=== PATIENT | female | born 1940 | race Caucasian/White ===

== ENCOUNTER → 2017-01-01 | Outpatient (CLI) | payer OTHER ==
[~2017-01-01] MED LIST: ALBU1AER9 INH; ALPR-385 PO; ATEN50TA8 PO; CALC-20 PO; CHOL4POW6 PO; DENO60SO; DIPH-416 PO; MULTTAB5 PO; POTA20TA13 PO; SERT-234 PO; SIMV20TA2 PO; levothyroxine PO
--- NOTE | 2017-01-01 16:59 | DIAGNOSTIC IMAGING REPORT ---
Venous Doppler left leg LEFT VENOUS DOPP LOWER EXT UNILAT CLINICAL HISTORY: Pain edema TECHNIQUE: Doppler ultrasound COMPARISON STUDY: Negative study FINDINGS: Negative study IMPRESSION: Negative study Electronically signed by: Lincoln Saba M.D. 01/01/2017 4:57 PM Dictated Date/Time: 01/01/2017 4:57 PM
== END | disposition home or self-care (01) ==
LOC: C.ULTR 16:20
PROVIDERS: ATTEND Family Medicine
DX: R60.0 Localized edema (principal)

== ENCOUNTER → 2017-01-02 | Outpatient (CLI) | payer OTHER ==
--- NOTE | 2017-01-02 08:56 | DIAGNOSTIC IMAGING REPORT ---
RIGHT TOE(S) MIN 2 VIEWS CLINICAL HISTORY: CONTUSION OF TOE Right trauma COMPARISON: None. DISCUSSION: Fracture distal aspect proximal phalanx fifth toe. Moderate soft tissue edema. No evidence dislocation. IMPRESSION: Fracture distal aspect proximal phalanx fifth toe Electronically signed by: Lincoln Saba M.D. 01/02/2017 8:55 AM Dictated Date/Time: 01/02/2017 8:54 AM
[2017-01-02 13:08] LABS: BLOOD UREA NITROGEN 9 mg/dl (7-18); BUN/CREATININE RATIO 13.8 (10-20); CALCIUM 9.1 mg/dl (8.5-10.1); CARBON DIOXIDE 22 mmol/L (21-32); CHLORIDE 94 mmol/L (98-107); CREATININE 0.68 mg/dl (0.60-1.20); GLUCOSE 91 mg/dl (70-99); POTASSIUM 4.2 mmol/L (3.5-5.1); SODIUM 126 mmol/L (136-145)
== END | disposition home or self-care (01) ==
LOC: C.LABPVFM 08:25
PROVIDERS: ATTEND Family Medicine
DX: S90.121A Contusion of right lesser toe(s) without damage to nail, initial encounter (principal); X58.XXXA Exposure to other specified factors, initial encounter; S92.514A Nondisplaced fracture of proximal phalanx of right lesser toe(s), initial encounter for closed fracture; E03.9 Hypothyroidism, unspecified; E87.1 Hypo-osmolality and hyponatremia

== ENCOUNTER → 2017-05-09 | Outpatient (CLI) | payer OTHER ==
[2017-05-09 13:10] LABS: ALT/SGPT 33 U/L (12-78); BLOOD UREA NITROGEN 10 mg/dl (7-18); BUN/CREATININE RATIO 15.1 (10-20); CALCIUM 8.8 mg/dl (8.5-10.1); CARBON DIOXIDE 23 mmol/L (21-32); CHLORIDE 96 mmol/L (98-107); CHOLESTEROL 164 mg/dl (0-200); CREATININE 0.67 mg/dl (0.60-1.20); GLUCOSE 76 mg/dl (70-99); POTASSIUM 4.2 mmol/L (3.5-5.1); SODIUM 126 mmol/L (136-145)
[2017-05-09 13:21] LABS: ALB/GLOB RATIO 0.9 (0.9-2); ALKALINE PHOSPHATASE 43 U/L (45-117); AST/SGOT 21 U/L (15-37); CHOLESTEROL/HDL RATIO 2.7; HDL CHOLESTEROL 61 mg/dl; LDL CHOLESTEROL CALCULATED 77 mg/dl; TRIGLYCERIDES 128 mg/dl (0-150); VERY LOW DENSITY LIPOPROT CALC 26 mg/dl
== END | disposition home or self-care (01) ==
LOC: C.LABPVFM 08:30
PROVIDERS: ATTEND Family Medicine
DX: J44.0 Chronic obstructive pulmonary disease with (acute) lower respiratory infection (principal); F32.9 Major depressive disorder, single episode, unspecified; E78.5 Hyperlipidemia, unspecified; I10 Essential (primary) hypertension; S92.919A Unspecified fracture of unspecified toe(s), initial encounter for closed fracture; X58.XXXA Exposure to other specified factors, initial encounter

== ENCOUNTER → 2017-06-19 | Outpatient (CLI) | payer OTHER ==
[2017-06-19 13:12] LABS: BLOOD UREA NITROGEN 10 mg/dl (7-18); BUN/CREATININE RATIO 17.1 (10-20); CALCIUM 9.1 mg/dl (8.5-10.1); CARBON DIOXIDE 25 mmol/L (21-32); CHLORIDE 100 mmol/L (98-107); CREATININE 0.58 mg/dl (0.60-1.20); GLUCOSE 68 mg/dl (70-99); POTASSIUM 4.2 mmol/L (3.5-5.1); SODIUM 131 mmol/L (136-145)
== END | disposition home or self-care (01) ==
LOC: C.LABPVFM 10:14
PROVIDERS: ATTEND Family Medicine
DX: E87.1 Hypo-osmolality and hyponatremia (principal)

== ENCOUNTER → 2017-07-21 | Outpatient (CLI) | payer OTHER | END | disposition home or self-care (01) | LOC: C.PAPS 14:58 | PROVIDERS: ATTEND Obstetrics & Gynecology | DX: Z01.419 Encounter for gynecological examination (general) (routine) without abnormal findings (principal) ==

== ENCOUNTER → 2017-10-18 | Outpatient (CLI) | payer OTHER | END | disposition home or self-care (01) | LOC: C.LABPVFM 10:26 | PROVIDERS: ATTEND Family Medicine | DX: R39.9 Unspecified symptoms and signs involving the genitourinary system (principal) ==

== ENCOUNTER → 2017-11-01 | Outpatient (CLI) | payer OTHER ==
[2017-11-01 13:19] LABS: ALT/SGPT 29 U/L (12-78); BLOOD UREA NITROGEN 16 mg/dl (7-18); BUN/CREATININE RATIO 20.6 (10-20); CALCIUM 8.7 mg/dl (8.5-10.1); CARBON DIOXIDE 25 mmol/L (21-32); CHLORIDE 99 mmol/L (98-107); CHOLESTEROL 157 mg/dl (0-200); CREATININE 0.75 mg/dl (0.60-1.20); GLUCOSE 83 mg/dl (70-99); POTASSIUM 4.1 mmol/L (3.5-5.1); SODIUM 132 mmol/L (136-145); TRIGLYCERIDES 117 mg/dl (0-150); VERY LOW DENSITY LIPOPROT CALC 23 mg/dl
[2017-11-01 13:29] LABS: ALB/GLOB RATIO 0.9 (0.9-2); ALKALINE PHOSPHATASE 55 U/L (45-117); AST/SGOT 22 U/L (15-37); CHOLESTEROL/HDL RATIO 2.8; HDL CHOLESTEROL 57 mg/dl; LDL CHOLESTEROL CALCULATED 77 mg/dl
== END | disposition home or self-care (01) ==
LOC: C.LABPVFM 08:02
PROVIDERS: ATTEND Family Medicine
DX: F41.9 Anxiety disorder, unspecified (principal); F32.9 Major depressive disorder, single episode, unspecified; E87.1 Hypo-osmolality and hyponatremia; E03.9 Hypothyroidism, unspecified; J44.9 Chronic obstructive pulmonary disease, unspecified; I10 Essential (primary) hypertension

== ENCOUNTER → 2017-11-11 | Outpatient (CLI) | payer OTHER ==
[~2017-11-11] MED LIST changes: +ACET-1256 PO; +ALBU18002 INH; +ASPI81TA28 PO; +CALC-393 PO; +CALC-51 PO; +CHOL4POW12 PO; +CIPR-255 PO; +CIPR1TAB10 PO; +DIPH25CA5 PO; +DOCU-94 PO; +DOXY100C76 PO; +FLUT0.15 INTNAS; +HYDR-4079 PO; +HYDR-4383 PO; +HYDR-5688 PO; +HYDR2TAB48 PO; +LDDP5 TD; +LEVO25TA5 PO; +LIDO1PAD2 TOP; +NITR1CAP16 PO; +ONDA-170 PO; +OXYC-737 PO; +PHEN-876 PO; +PRED10TA PO; +ZOFRAN PO
--- NOTE | 2017-11-11 13:37 | MAMMOGRAPHY REPORT ---
BILATERAL DIGITAL SCREENING MAMMOGRAM TOMOSYNTHESIS WITH CAD: 11/11/2017 CLINICAL HISTORY: Asymptomatic. Personal history of breast cancer. TECHNIQUE: Breast tomosynthesis in addition to standard 2D mammography was performed. Current study was also evaluated with a Computer Aided Detection (CAD) system. COMPARISON: Comparison is made to exams dated: 11/07/2016 mammogram, 11/06/2015 mammogram, 4 mammogram, 10/25/2013 mammogram, 10/19/2012 mammogram, and 10/16/2011 mammogram - [facility]. BREAST COMPOSITION: There are scattered areas of fibroglandular density in both breasts. FINDINGS: There are stable postsurgical changes in the right breast, with surgical clips and dystroph ic calcification at the surgical site in the central breast. There are a few benign-appearing calcif ications in the left breast. Mild vascular calcification. No new suspicious mass, architectural dis tortion or cluster of microcalcifications is seen. IMPRESSION: ACR BI-RADS CATEGORY 1: NEGATIVE There is no mammographic evidence of malignancy. A 1 year screening mammogram is recommended. The pa tient will receive written notification of the results. Approximately 10% of breast cancers are not detected with mammography. A negative mammographic report should not delay biopsy if a clinically suggestive mass is present. Fidelia Pop M.D. ay/:11/11/2017 08:35:14 Special Needs Tutor: Vira SWIFT)(Stevan), [facility] letter sent: Normal 1/2 BI-RADS Code: ACR BI-RADS Category 1: Negative
== END | disposition home or self-care (01) ==
LOC: C.MAMM 07:19
PROVIDERS: ATTEND Obstetrics & Gynecology
DX: Z12.31 Encounter for screening mammogram for malignant neoplasm of breast (principal); Z85.3 Personal history of malignant neoplasm of breast

== ENCOUNTER → 2018-01-16 | Outpatient (CLI) | payer OTHER ==
[~2018-01-16] MED LIST changes: -ACET-1256 PO; -ALBU18002 INH; -ASPI81TA28 PO; -CALC-393 PO; -CALC-51 PO; -CHOL4POW12 PO; -CIPR-255 PO; -CIPR1TAB10 PO; -DIPH25CA5 PO; -DOCU-94 PO; -DOXY100C76 PO; -FLUT0.15 INTNAS; -HYDR-4079 PO; -HYDR-4383 PO; -HYDR-5688 PO; -HYDR2TAB48 PO; -LDDP5 TD; -LEVO25TA5 PO; -LIDO1PAD2 TOP; -NITR1CAP16 PO; -ONDA-170 PO; -OXYC-737 PO; -PHEN-876 PO; -PRED10TA PO; -ZOFRAN PO
--- NOTE | 2018-01-16 11:19 | DIAGNOSTIC IMAGING REPORT ---
SACRUM COCCYX MIN 2 VIEWS, L HIP UNILATERAL 2 VIEWS, R HIP UNILATERAL 2 VIEWS CLINICAL HISTORY: BACK PAIN ACUTE. Sacral pain. Fall. Bilateral groin pain. COMPARISON STUDY: None. FINDINGS: Degenerative changes seen within the lower lumbar spine. No fractures identified within the sacrum, coccyx, or bilateral hips. No dislocation. The visualized pelvic bones are intact. Degenerative changes within the bilateral sacroiliac joints and symphysis pubis. 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 Presacral soft tissues are unremarkable. IMPRESSION: No fractures within the sacrum, coccyx, or bilateral hips. Electronically signed by: Williams Covarrubias M.D. 01/16/2018 11:18 AM Dictated Date/Time: 01/16/2018 11:12 AM
--- NOTE | 2018-01-16 11:28 | DIAGNOSTIC IMAGING REPORT ---
L-SPINE MIN 4 VIEWS ROUTINE HISTORY: Trauma. Pain. BACK PAIN ACUTE COMPARISON: None. FINDINGS: Mild scoliosis. Degenerative disc change throughout the entire lumbar region most prominent at L2-L3. Sclerosis of the vertebral endplates on a degenerative basis. A grade 1 anterolisthesis of L4 on L5 felt to be secondary to degenerative changes of posterior elements. No evidence for an acute compression deformity. IMPRESSION: Moderate to rather significant degenerative change. No acute bony abnormality. No evidence for compression deformity. The above report was generated using voice recognition software. It may contain grammatical, syntax or spelling errors. Electronically signed by: Lincoln Saba M.D. 01/16/2018 11:27 AM Dictated Date/Time: 01/16/2018 11:26 AM
[2018-01-16 12:40] LABS: BASO % 0.9 %; BASO ABS # 0.06 K/uL (0-0.2); EOS % 2.4 %; EOS ABS # 0.16 K/uL (0-0.5); HEMATOCRIT 39.7 % (37-47); HEMOGLOBIN 13.6 g/dL (12.0-16.0); IG# 0.01 K/uL (0.00-0.02); LYMPH % 18.8 %; LYMPH ABS # 1.24 K/uL (1.2-3.4); MEAN CELL VOLUME 92.8 fL (80-100); MEAN CORPUSCULAR HEMOGLOBIN 31.8 pg (25-34); MEAN CORPUSCULAR HGB CONC 34.3 g/dl (32-36); MONO % 11.6 %; MONO ABS # 0.77 K/uL (0.11-0.59); NEUT % 66.1 %; NEUT ABS # 4.37 K/uL (1.4-6.5); PLATELET COUNT 286 K/uL (130-400); RED CELL DISTRIBUTION WIDTH SD 44.2 fL (36.4-46.3); WHITE BLOOD COUNT 6.61 K/uL (4.8-10.8)
[2018-01-16 13:07] LABS: ALBUMIN 3.5 gm/dl (3.4-5.0); ALT/SGPT 29 U/L (12-78); BLOOD UREA NITROGEN 11 mg/dl (7-18); CALCIUM 9.6 mg/dl (8.5-10.1); CARBON DIOXIDE 22 mmol/L (21-32); CREATININE 0.59 mg/dl (0.60-1.20); GLUCOSE 76 mg/dl (70-99); POTASSIUM 4.3 mmol/L (3.5-5.1); SODIUM 128 mmol/L (136-145)
[2018-01-16 13:11] LABS: ALKALINE PHOSPHATASE 91 U/L (45-117); AST/SGOT 23 U/L (15-37); TOTAL PROTEIN 7.9 gm/dl (6.4-8.2)
== END | disposition home or self-care (01) ==
LOC: C.LABPVFM 10:33
PROVIDERS: ATTEND Family Medicine
DX: M54.9 Dorsalgia, unspecified (principal); C50.911 Malignant neoplasm of unspecified site of right female breast; M51.36 Other intervertebral disc degeneration, lumbar region

== ENCOUNTER → 2018-01-28 | Outpatient (CLI) | payer OTHER ==
[~2018-01-28] MED LIST changes: +ALBU18002 INH; -ALBU1AER9 INH; -CHOL4POW6 PO; +CIPR1TAB10 PO; -DENO60SO; -DIPH-416 PO; +DOCU-94 PO; +HYDR-5688 PO; +LDDP5 TD; +LEVO25TA5 PO; +NITR1CAP16 PO; -levothyroxine PO
--- NOTE | 2018-01-28 12:08 | DIAGNOSTIC IMAGING REPORT ---
ABDOMEN 2VIEW W/PA CHEST RTN CLINICAL HISTORY: Generalized abdominal pain COMPARISON STUDY: 03/24/2014 FINDINGS: The erect chest reveals no free intraperitoneal air. The heart is borderline enlarged. There are by basilar opacities, likely atelectatic. Rectal supine views the abdomen reveal surgical clips in the right upper quadrant consistent with a prior cholecystectomy. There is moderate fecal retention. There are no transition zone to indicate bowel obstruction. There is a right upper quadrant calcification likely representing a cold fragment. IMPRESSION: 1. No evidence of bowel obstruction. No evidence of free air 2. Moderate fecal retention 3. Right upper quadrant calcification likely representing a pill fragment 4. Bibasilar pulmonary opacities likely atelectatic Electronically signed by: Vahid Quintero M.D. 01/28/2018 12:06 PM Dictated Date/Time: 01/28/2018 12:05 PM
== END | disposition home or self-care (01) ==
LOC: C.RADPV 11:31
PROVIDERS: ATTEND Family Medicine
DX: R10.9 Unspecified abdominal pain (principal)

== ENCOUNTER 2018-01-30 11:12 | Emergency (ER) | payer OTHER ==
[~2018-01-30] VITALS: Ht 162.6 cm; Wt 103.0 kg
[~2018-01-30 11:12] MED LIST changes: -CIPR1TAB10 PO; -DOCU-94 PO; -HYDR-5688 PO; -LDDP5 TD
[2018-01-30 11:16] VITALS: TEMP 36.6; Ht 162.6 cm; Wt 103.0 kg
[2018-01-30] MEDS ORDERED: SODIUM CHLORIDE 0.9% 1000ML 1,000 ML IV STA (11:34)
[2018-01-30] MEDS ORDERED: ACETAMINOPHEN 500 MG TAB PO STA (11:34)
[2018-01-30] MEDS ORDERED: OPTIRAY 320 IV PRN (11:45)
[2018-01-30] MEDS ORDERED: HYDR-5688 PO (11:57)
[2018-01-30] MEDS ORDERED: CIPR1TAB10 PO (11:57)
--- NOTE | 2018-01-30 11:57 | EMERGENCY ROOM VISIT NOTE ---
History Report prepared by Dorian: Sandra Eisenberg Under the Supervision of: Dr. Jasiel Read M.D. First contact with patient: 11:32 Chief Complaint: URINARY SYMPTOMS Stated Complaint: BACK PAIN Nursing Triage Summary: patient states 2 weeks ago she fell in the yard. "I went to grab ahold of the rail on the stairs and I slipped." patient c/o middle back pain. saw PCP x rays were done. negative. friday patient c/o urinary symptoms. went to [facility] and was told she had blood in her urine. patient was given an antibiotic. patient continues to have flank pain and urgency to urinate. History of Present Illness The patient is a 77 year old female who presents to the Emergency Room with complaints of worsening back pain beginning a week ago. The patient reports she fell in her yard two weeks ago. She states she went to grab the rail on her stair and slipped and "rolled" over into her yard. She states she felt fine after the fall until her back pain began a week after the fall. The patient states she followed up with her PCP who did X-rays which were unremarkable. The patient then went back to and Urgent clinic two days ago where they tested her urine which she reports had blood in it. The patient states she vomited two days ago but has felt normal since. She denies any bowel movement in two days. She denies any fever, urinary symptoms, or chills. The patient believes she has a kidney stone. The patient has a history of abdominal hernia repair. The patient has a history of COPD. Source of History: patient Onset: week ago Position: back Quality: other (pain) Timing: worsening Associated Symptoms: + back pain, No fevers, No chills, No urinary symptoms Review of Systems See HPI for pertinent positives and negatives. A total of ten systems were reviewed and were otherwise negative. Past Medical & Surgical Medical Problems: (1) Benign hypertension (2) Breast cancer (3) Chronic obstructive lung disease (4) Gastroesophageal reflux disease (5) Leukopenia Surgical Problems: (1) History of appendectomy (2) History of cholecystectomy (3) History of hernia repair (4) History of knee replacement Family History FH: cancer FH: diabetes FH: gallbladder disease FH: heart disease FH: hypertension FH: lung disease Social History Smoking Status: Former Smoker Alcohol Use: occasionally Marital Status: Housing Status: lives with significant other Occupation Status: retired Current/Historical Medications Scheduled Atenolol (Tenormin), 50 MG PO QAM Calcium Carbonate-Vitamin D (Calcium 600 + D), 2 TABS PO DAILY Ciprofloxacin Hcl (Cipro), 500 MG PO BID Levothyroxine Sodium (Levothyroxine Sodium), 37.5 MG PO QPM Multiple Vitamins W/ Minerals (Centrum), 1 TAB PO DAILY Potassium Chloride Microencaps (Potassium Chloride Er), 20 MEQ PO QAM Sertraline (Zoloft), 100 MG PO QAM Simvastatin (Zocor), 20 MG PO QPM Scheduled PRN Albuterol Sulfate (Proair Respiclick), 2 PUFFS INH Q4H PRN for SOB/Wheezing Alprazolam (Xanax), 0.5-1 MG PO DAILY PRN for Anxiety and/or Sedation Docusate Sodium (Colace), 1 CAP PO BID PRN for Constipation Hydrocodone/Acetaminophen 5MG/325MG ([place] 5MG/325MG), 1 TABLET PO Q6 PRN for Pain Lidocaine (Lidocaine), 1 PATCH TD DAILY PRN for Pain Allergies Coded Allergies: Sulfa Antibiotics (Verified Allergy, Severe, GI SYMPTOMS, 01/30/18) Penicillins (Verified Allergy, Intermediate, RASH, 01/30/18) Physical Exam Vital Signs Date Time Temp Pulse Resp B/P (MAP) Pulse Ox O2 Delivery O2 Flow Rate FiO2 01/30/18 16:00 75 16 134/76 98 01/30/18 15:40 72 18 135/72 94 Room Air 01/30/18 13:45 89 18 165/77 94 01/30/18 12:17 80 01/30/18 11:16 36.6 75 20 165/69 95 Room Air Physical Exam GENERAL: Awake, alert, well-appearing, in no distress HENT: Normocephalic, atraumatic. Oropharynx unremarkable. Dry MM. EYES: Normal conjunctiva. Sclera non-icteric. NECK: Supple. No nuchal rigidity. FROM. No JVD. RESPIRATORY: Clear to auscultation. CARDIAC: Regular rate, normal rhythm. Extremities warm and well perfused. Pulses equal. ABDOMEN: Soft, non-distended. No tenderness to palpation. No rebound or guarding. No masses. RECTAL: Deferred. MUSCULOSKELETAL: Chest examination reveals no tenderness. The back is symmetrical on inspection without obvious abnormality. There is no CVA tenderness to palpation. No joint edema. LOWER EXTREMITIES: Calves are equal size bilaterally and non-tender. No edema. No discoloration. NEURO: Normal sensorium. No sensory or motor deficits noted. SKIN: No rash or jaundice noted. Medical Decision & Procedures ER Provider Diagnostic Interpretation: Radiology results as stated below per my review and radiologist interpretation: CT ABD/PELVIS IV CONTRAST ONLY FINDINGS: Lower chest: There is elevation the right hemidiaphragm. There are right middle lobe lingular and bilateral lower lobe atelectatic changes. There are dystrophic calcifications present within the right breast. There is a hiatal hernia. Liver: The contrast-enhanced liver is normal in size, contour, and attenuation. There is no intrahepatic biliary ductal dilatation. The hepatic veins and portal veins are patent. Gallbladder: Surgically absent Spleen: Normal in size and attenuation. Pancreas: Unremarkable. Adrenal glands: Unremarkable. Kidneys: There is symmetric renal cortical enhancement. The kidneys are normal in size without hydronephrosis. Bowel: There are no transition zones indicate bowel obstruction. There is colonic diverticulosis. There are no acute peridiverticular inflammatory changes. The appendix is not visualized with certainty. There are no findings to indicate acute appendicitis. Peritoneum: There are postsurgical changes of a right lower quadrant hernia mesh repair. There is no free fluid. There is no evidence of free intraperitoneal air. Vasculature: The abdominal aorta is normal in course and caliber. Adenopathy: Mildly prominent mesenteric lymph nodes remain unchanged from October 2010. Pelvic viscera: The bladder, and pelvic viscera are unremarkable. Skeletal structures: Mixed sclerotic and cystic changes involving the symphysis pubis, are felt to be chronic. There is a mild superior endplate L4 compression deformity which has developed since the 2009 study. IMPRESSION: 1. No evidence of solid or injury 2. Mild superior endplate L4 compression deformity which has developed since the prior 2009 study Electronically signed by: Vahid Quintero M.D. LUMBAR SPINE WITHOUT FINDINGS: Considerable degenerative change throughout the entire lumbar spine. Mild/moderate concavity superior endplate L4 possibly representing an acute wedge deformity. No significant retropulsion of any component of the vertebral body. No significant compromise of the spinal canal. All remaining components of the lumbar region showed degenerative change. Posterior elements appear to be intact. Degenerative changes noted throughout the posterior facets. No acute bony abnormalities appreciated. IMPRESSION: 1. Slight concave deformity superior endplate L4 possibly representing an acute mild compression deformity. 2. No significant compromise of the spinal canal. 3. Considerable degenerative change throughout all remaining components of the lumbar spine. 4. Osteopenia. The above report was generated using voice recognition software. It may contain grammatical, syntax or spelling errors. Electronically signed by: Lincoln Saba M.D. Laboratory Results 01/30/18 12:26 Red Blood Count 3.69, Mean Corpuscular Volume 93.5, Mean Corpuscular Hemoglobin 32.2, Mean Corpuscular Hemoglobin Concent 34.5, Mean Platelet Volume 8.8, Neutrophils (%) (Auto) 64.7, Lymphocytes (%) (Auto) 16.8, Monocytes (%) (Auto) 13.7, Eosinophils (%) (Auto) 4.0, Basophils (%) (Auto) 0.5, Neutrophils # (Auto ) 5.07, Lymphocytes # (Auto) 1.31, Monocytes # (Auto) 1.07, Eosinophils # (Auto ) 0.31, Basophils # (Auto) 0.04 01/30/18 12:26 Test 01/30/18 11:30 01/30/18 12:26 01/30/18 12:29 Urine Color YELLOW Urine Appearance CLEAR (CLEAR) Urine pH 8.5 (4.5-7.5) Urine Specific [place] 1.008 (1.000-1.030) Urine Protein NEG (NEG) Urine Glucose (UA) NEG (NEG) Urine Ketones NEG (NEG) Urine Occult Blood NEG (NEG) Urine Nitrite NEG (NEG) Urine Bilirubin NEG (NEG) Urine Urobilinogen NEG (NEG) Urine Leukocyte Esterase NEG (NEG) Urine Osmolality 215 mOms/kg (500-800) White Blood Count 7.82 K/uL (4.8-10.8) Red Blood Count 3.69 M/uL (4.2-5.4) Hemoglobin 11.9 g/dL (12.0-16.0) Hematocrit 34.5 % (37-47) Mean Corpuscular Volume 93.5 fL (80-100) Mean Corpuscular Hemoglobin 32.2 pg (25-34) Mean Corpuscular Hemoglobin Concent 34.5 g/dl (32-36) Platelet Count 258 K/uL (130-400) Mean Platelet Volume 8.8 fL (7.4-10.4) Neutrophils (%) (Auto) 64.7 % Lymphocytes (%) (Auto) 16.8 % Monocytes (%) (Auto) 13.7 % Eosinophils (%) (Auto) 4.0 % Basophils (%) (Auto) 0.5 % Neutrophils # (Auto) 5.07 K/uL (1.4-6.5) Lymphocytes # (Auto) 1.31 K/uL (1.2-3.4) Monocytes # (Auto) 1.07 K/uL (0.11-0.59) Eosinophils # (Auto) 0.31 K/uL (0-0.5) Basophils # (Auto) 0.04 K/uL (0-0.2) RDW Standard Deviation 45.8 fL (36.4-46.3) RDW Coefficient of Variation 13.3 % (11.5-14.5) Immature Granulocyte % (Auto) 0.3 % Immature Granulocyte # (Auto) 0.02 K/uL (0.00-0.02) Anion Gap 7.0 mmol/L (3-11) Est Creatinine Clear Calc Drug Dose 91.9 ml/min Estimated GFR () 101.7 Estimated GFR (Non- 87.8 BUN/Creatinine Ratio 13.4 (10-20) Calcium Level 9.1 mg/dl (8.5-10.1) Total Bilirubin 0.5 mg/dl (0.2-1) Direct Bilirubin 0.2 mg/dl (0-0.2) Aspartate Amino Transf (AST/SGOT) 23 U/L (15-37) Alanine Aminotransferase (ALT/SGPT) 26 U/L (12-78) Alkaline Phosphatase 91 U/L (45-117) Total Protein 7.1 gm/dl (6.4-8.2) Albumin 3.1 gm/dl (3.4-5.0) Lipase 90 U/L (73-393) Osmolality 262 mOsm/kg (280-300) Laboratory results reviewed by me Medications Administered Medications (Trade) Dose Ordered Sig/Edmond Route Start Time Stop Time Status Last Admin Dose Admin Sodium Chloride 1,000 ml @ 999 mls/hr Q1H1M STAT IV 01/30/18 11:34 01/30/18 12:34 DC 01/30/18 11:56 999 MLS/HR Acetaminophen (Tylenol Tab) 1,000 mg NOW STAT PO 01/30/18 11:34 01/30/18 11:40 DC 01/30/18 11:57 1,000 MG Oxycodone HCl (Roxicodone Immediate Rel Tab) 5 mg NOW STAT PO 01/30/18 14:36 01/30/18 14:37 DC 01/30/18 14:36 5 MG Lidocaine (Lidoderm Patch 5%) 1 patch NOW STAT TD 01/30/18 14:36 01/30/18 14:37 DC 01/30/18 14:36 1 PATCH ED Course 1133: The patient was evaluated in room B11B. A complete history and physical exam was performed. 1532: I updated the patient on her test results. 1540: I reevaluated the patient. Discussed results and discharge instructions: She verbalized understanding and agreement. The patient is ready for discharge. Medical Decision I reviewed the patient's past medical history, medications, and the nursing notes as described above. Differential diagnosis: Etiologies such as renal colic, appendicitis, diverticulitis, mesenteric ischemia, aortic pathology, infections, inflammatory bowel disease, PUD, biliary pathology, UTI, as well as others were entertained. The patient is a 77-year-old woman who presents emergency department with lower back pain 2 weeks after having a mechanical fall and having outpatient UA which she reports she was told showed blood per HPI. Patient presents emergency department because she was concerned she could have a kidney stone. On arrival the patient is in no acute distress, afebrile stable vital signs. Labs demonstrate hyponatremia to 127 which the patient reports she has been told has been running low. Otherwise labs unremarkable including WBC within normal limits. UA negative for blood or infection. CT of abdomen pelvis negative for stone however does show a mild compression fracture of L4 with no involvement of posterior elements. Findings and plan for follow-up reviewed with patient. Patient agreeable and d/c'd per discharge instructions. Medication Reconcilliation Current Medication List: was personally reviewed by me Blood Pressure Screening Patient's blood pressure: Elevated blood pressure Blood pressure disposition: Elevated BP felt to be situational Impression Primary Impression: Lumbar compression fracture Scribe Attestation The scribe's documentation has been prepared under my direction and personally reviewed by me in its entirety. I confirm that the note above accurately reflects all work, treatment, procedures, and medical decision making performed by me. Departure Information Dispostion Home / Self-Care Prescriptions Docusate Sodium (COLACE) 100 Mg Cap 1 CAP PO BID Y for Constipation for 15 Days, #30 CAP Prov: Jasiel Read M.D. 01/30/18 Lidocaine (Lidocaine) 1 Patch Tdsy 1 PATCH TD DAILY Y for Pain, #10 PATCH Prov: Jasiel Read M.D. 01/30/18 Referrals Dee Beyer M.D. (PCP) Daniele Jonas D.O. Forms HOME CARE DOCUMENTATION FORM, IMPORTANT VISIT INFORMATION Patient Instructions ED Fx Comp Vertebral, ED Hyponatremia, My [facility] Additional Instructions Please follow up with your primary care physician on Friday for re-evaluation and to repeat your sodium, which was low today. You should also follow up with a provider enrollment specialist, Dr. Jonas, to discuss your CT findings. You find to have a mild compression fracture in your lumbar spine likely related to your fall last week. Your sodium was also found to be low at 127. Otherwise, your exam, lab results, and CT scan did not show signs of an emergent condition at this time. Continue your current medications as prescribed. Lidoderm patches for additional pain relief. Colace as needed for constipation that would be associated with your Vicodin. Return to the emergency department for worsening symptoms as described in the accompanying instructions.
[2018-01-30 12:36] LABS: BASO % 0.5 %; BASO ABS # 0.04 K/uL (0-0.2); EOS ABS # 0.31 K/uL (0-0.5); HEMATOCRIT 34.5 % (37-47); HEMOGLOBIN 11.9 g/dL (12.0-16.0); IG# 0.02 K/uL (0.00-0.02); LYMPH % 16.8 %; LYMPH ABS # 1.31 K/uL (1.2-3.4); MEAN CELL VOLUME 93.5 fL (80-100); MEAN CORPUSCULAR HEMOGLOBIN 32.2 pg (25-34); MEAN CORPUSCULAR HGB CONC 34.5 g/dl (32-36); MEAN PLATELET VOLUME 8.8 fL (7.4-10.4); MONO % 13.7 %; MONO ABS # 1.07 K/uL (0.11-0.59); NEUT % 64.7 %; NEUT ABS # 5.07 K/uL (1.4-6.5); PLATELET COUNT 258 K/uL (130-400); RED CELL DISTRIBUTION WIDTH CV 13.3 % (11.5-14.5); RED CELL DISTRIBUTION WIDTH SD 45.8 fL (36.4-46.3); WHITE BLOOD COUNT 7.82 K/uL (4.8-10.8)
[2018-01-30 12:55] LABS: ALBUMIN 3.1 gm/dl (3.4-5.0); CALCIUM 9.1 mg/dl (8.5-10.1); CREATININE 0.59 mg/dl (0.60-1.20); POTASSIUM 4.7 mmol/L (3.5-5.1)
[2018-01-30 12:58] LABS: TOTAL PROTEIN 7.1 gm/dl (6.4-8.2)
--- NOTE | 2018-01-30 13:49 | DIAGNOSTIC IMAGING REPORT ---
CT ABD/PELVIS IV CONTRAST ONLY CLINICAL HISTORY: hematuria, low back pain TRAUMA COMPARISON STUDY: October 2010 TECHNIQUE: Following the IV administration of 92 mL of Optiray-320, CT scan of the abdomen and pelvis was performed from the lung bases to the proximal femurs. Images are reviewed in the axial, sagittal, and coronal planes. IV contrast was administered without complication. A dose lowering technique was utilized adhering to the principles of ALARA. CT DOSE: FINDINGS: Lower chest: There is elevation the right hemidiaphragm. There are right middle lobe lingular and bilateral lower lobe atelectatic changes. There are dystrophic calcifications present within the right breast. There is a hiatal hernia. Liver: The contrast-enhanced liver is normal in size, contour, and attenuation. There is no intrahepatic biliary ductal dilatation. The hepatic veins and portal veins are patent. Gallbladder: Surgically absent Spleen: Normal in size and attenuation. Pancreas: Unremarkable. Adrenal glands: Unremarkable. Kidneys: There is symmetric renal cortical enhancement. The kidneys are normal in size without hydronephrosis. Bowel: There are no transition zones indicate bowel obstruction. There is colonic diverticulosis. There are no acute peridiverticular inflammatory changes. The appendix is not visualized with certainty. There are no findings to indicate acute appendicitis. Peritoneum: There are postsurgical changes of a right lower quadrant hernia mesh repair. There is no free fluid. There is no evidence of free intraperitoneal air. Vasculature: The abdominal aorta is normal in course and caliber. Adenopathy: Mildly prominent mesenteric lymph nodes remain unchanged from October 2010. Pelvic viscera: The bladder, and pelvic viscera are unremarkable. Skeletal structures: Mixed sclerotic and cystic changes involving the symphysis pubis, are felt to be chronic. There is a mild superior endplate L4 compression deformity which has developed since the 2009 study. IMPRESSION: 1. No evidence of solid or injury 2. Mild superior endplate L4 compression deformity which has developed since the prior 2009 study Electronically signed by: Vahid Quintero M.D. 01/30/2018 1:47 PM Dictated Date/Time: 01/30/2018 1:39 PM
--- NOTE | 2018-01-30 13:50 | DIAGNOSTIC IMAGING REPORT ---
LUMBAR SPINE WITHOUT CT DOSE: 1591.35 mGy.cm HISTORY: Trauma. Pain. pain fall TECHNIQUE: Multiaxial CT images of the lumbar spine were performed and reformatted in the sagittal and coronal plane without the use of contrast. A dose lowering technique was utilized adhering to the principles of ALARA. COMPARISON: None. FINDINGS: Considerable degenerative change throughout the entire lumbar spine. Mild/moderate concavity superior endplate L4 possibly representing an acute wedge deformity. No significant retropulsion of any component of the vertebral body. No significant compromise of the spinal canal. All remaining components of the lumbar region showed degenerative change. Posterior elements appear to be intact. Degenerative changes noted throughout the posterior facets. No acute bony abnormalities appreciated. IMPRESSION: 1. Slight concave deformity superior endplate L4 possibly representing an acute mild compression deformity. 2. No significant compromise of the spinal canal. 3. Considerable degenerative change throughout all remaining components of the lumbar spine. 4. Osteopenia. The above report was generated using voice recognition software. It may contain grammatical, syntax or spelling errors. Electronically signed by: Lincoln Saba M.D. 01/30/2018 1:48 PM Dictated Date/Time: 01/30/2018 1:46 PM
[2018-01-30] MEDS ORDERED: OXYCODONE HCL IR 5 MG TAB (IMMEDIATE RELEASE) PO STA (14:36)
[2018-01-30] MEDS ORDERED: LIDODERM (LIDOCAINE) PATCH 5% TD STA (14:36)
[2018-01-30] MEDS ORDERED: DOCU-94 PO (15:08)
[2018-01-30] MEDS ORDERED: LDDP5 TD (15:08)
[2018-01-30 16:00] VITALS: BP 134/76; PULSE 75; O2SAT 98
== END 2018-01-30 16:01 | disposition home or self-care (01) ==
LOC: C.EDB 11:14
DX: S32.000A Wedge compression fracture of unspecified lumbar vertebra, initial encounter for closed fracture (principal); W00.0XXA Fall on same level due to ice and snow, initial encounter; I10 Essential (primary) hypertension; J44.9 Chronic obstructive pulmonary disease, unspecified; K21.9 Gastro-esophageal reflux disease without esophagitis; R11.10 Vomiting, unspecified; Z83.3 Family history of diabetes mellitus; Z82.49 Family history of ischemic heart disease and other diseases of the circulatory system; Z83.79 Family history of other diseases of the digestive system; Z83.6 Family history of other diseases of the respiratory system; Z87.891 Personal history of nicotine dependence; Z88.2 Allergy status to sulfonamides; Z88.0 Allergy status to penicillin

== ENCOUNTER 2018-03-06 05:23 | Emergency (ER) | payer OTHER ==
[~2018-03-06] VITALS: Ht 166.4 cm; Wt 101.2 kg
[~2018-03-06 05:23] MED LIST changes: +CIPR1TAB10 PO; +HYDR-5688 PO; +LDDP5 TD; -NITR1CAP16 PO
[2018-03-06 05:29] VITALS: TEMP 36.4; Ht 166.4 cm; Wt 101.2 kg
[2018-03-06] MEDS ORDERED: SODIUM CHLORIDE 0.9% 1000ML 1,000 ML IV STA (05:43)
[2018-03-06] MEDS ORDERED: ONDANSETRON INJ 2 MG/ML 2 ML VIAL IV STA (05:43)
[2018-03-06] MEDS ORDERED: FENTANYL CITRATE INJ 50 MCG/1 ML 2 ML VIAL IV STA (05:43)
--- NOTE | 2018-03-06 05:50 | EMERGENCY ROOM VISIT NOTE ---
History First contact with patient: 05:36 Chief Complaint: ABDOMINAL PAIN Stated Complaint: ABD PAIN TO FLANK AREA History of Present Illness The patient is a 77 year old female who presents to the Emergency Room for evaluation right flank pain. Notes sudden onset 36 hours ago of waxing/waning right flank pain with associated nausea and fatigue. No improvement with Advil. Nothing makes better nor worse. Movement does not change pain. Denies urinary symptoms, fevers, chills vomiting, diarrhea, leg swelling, rashes, cp, sob, nor other symptoms. This is NOT similar to recent lumbar compression fracture though she is worried it may have worsened. Notes she comes in this quarter trimmer because unable to get appointment with clinic this am. Denies any recent trauma other than fall causing compression fracture last month. Is on no blood thinners. Took abx last month for possible UTI along with [place] BID for discomfort from fracture last month. No history of kidney stones. Notes previous appendectomy and cholecystectomy. Review of Systems See HPI for pertinent positives & negatives. A total of 10 systems reviewed and were otherwise negative. Past Medical/Surgical History Medical Problems: (1) Benign hypertension (2) Breast cancer (3) Chronic obstructive lung disease (4) Gastroesophageal reflux disease (5) Leukopenia Surgical Problems: (1) History of appendectomy (2) History of cholecystectomy (3) History of hernia repair (4) History of knee replacement Family History FH: cancer FH: diabetes FH: gallbladder disease FH: heart disease FH: hypertension FH: lung disease Social History Smoking Status: Former Smoker Alcohol Use: occasionally Marital Status: Housing Status: lives with significant other Occupation Status: retired Current/Historical Medications Scheduled Atenolol (Tenormin), 50 MG PO QAM Calcium Carbonate-Vitamin D (Calcium 600 + D), 2 TABS PO DAILY Cholestyramine (Questran), 4 GM PO DAILY Doxycycline Monohydrate (Monodox), 100 MG PO BID Levothyroxine Sodium (Levothyroxine Sodium), 37.5 MG PO QPM Multiple Vitamins W/ Minerals (Centrum), 1 TAB PO DAILY Potassium Chloride Microencaps (Potassium Chloride Er), 20 MEQ PO QAM Prednisone (Prednisone), 10 MG PO DAILY Sertraline (Zoloft), 100 MG PO QAM Simvastatin (Zocor), 20 MG PO QPM Scheduled PRN Albuterol Sulfate (Proair Respiclick), 2 PUFFS INH Q4H PRN for SOB/Wheezing Alprazolam (Xanax), 0.5-1 MG PO DAILY PRN for Anxiety and/or Sedation Hydrocodone/Acetaminophen 5MG/325MG ([place] 5MG/325MG), 1 TABLET PO Q6 PRN for Pain Lidocaine (Lidocaine), 1 PATCH TOP DAILY PRN for Pain Oxycodone Immediate Rel Tab (Roxicodone Ir), 0.5-1 TAB PO Q8H PRN for Severe Pain Physical Exam Vital Signs Date Time Temp Pulse Resp B/P (MAP) Pulse Ox O2 Delivery O2 Flow Rate FiO2 03/06/18 07:42 84 18 194/87 95 Room Air 03/06/18 07:12 84 18 184/107 95 Room Air 03/06/18 06:32 18 189/85 95 Room Air 03/06/18 06:04 80 03/06/18 05:29 36.4 72 20 184/83 95 Room Air Physical Exam GENERAL: Patient is uncomfortable appearing and in moderate distress. EYES: No scleral icterus, unremarkable pupils. ENT: Mucous membranes moist, no nasal congestion. NECK: No masses appreciated, no meningismus, trachea is midline. RESPIRATORY: No dyspnea. Clear to auscultation and equal bilaterally. No wheeze , no rhonchi. CARDIOVASCULAR: Regular rate and rhythm. No murmurs, rubs, gallops appreciated. GASTROINTESTINAL: Vague TTP over RLQ, otherwise abdomen soft, nontender, no peritonitis. Bowel sounds positive. No masses appreciated. BACK: No midline tenderness, mild right CVA tenderness EXTREMITIES: Normal motion all extremities, no cyanosis, no edema. NEUROLOGIC: Alert and oriented, no acute motor or sensory deficits, no focal weakness, cranial nerves grossly intact. SKIN: No rash, no jaundice, no diaphoresis. Medical Decision & Procedures Laboratory Results 03/06/18 05:50 Red Blood Count 4.22, Mean Corpuscular Volume 90.8, Mean Corpuscular Hemoglobin 32.2, Mean Corpuscular Hemoglobin Concent 35.5, Mean Platelet Volume 8.7, Neutrophils (%) (Auto) 69.8, Lymphocytes (%) (Auto) 15.7, Monocytes (%) (Auto) 11.0, Eosinophils (%) (Auto) 3.1, Basophils (%) (Auto) 0.3, Neutrophils # (Auto ) 4.71, Lymphocytes # (Auto) 1.06, Monocytes # (Auto) 0.74, Eosinophils # (Auto ) 0.21, Basophils # (Auto) 0.02 03/06/18 05:50 Test 03/06/18 05:50 03/06/18 06:12 White Blood Count 6.75 K/uL (4.8-10.8) Red Blood Count 4.22 M/uL (4.2-5.4) Hemoglobin 13.6 g/dL (12.0-16.0) Hematocrit 38.3 % (37-47) Mean Corpuscular Volume 90.8 fL (80-100) Mean Corpuscular Hemoglobin 32.2 pg (25-34) Mean Corpuscular Hemoglobin Concent 35.5 g/dl (32-36) Platelet Count 287 K/uL (130-400) Mean Platelet Volume 8.7 fL (7.4-10.4) Neutrophils (%) (Auto) 69.8 % Lymphocytes (%) (Auto) 15.7 % Monocytes (%) (Auto) 11.0 % Eosinophils (%) (Auto) 3.1 % Basophils (%) (Auto) 0.3 % Neutrophils # (Auto) 4.71 K/uL (1.4-6.5) Lymphocytes # (Auto) 1.06 K/uL (1.2-3.4) Monocytes # (Auto) 0.74 K/uL (0.11-0.59) Eosinophils # (Auto) 0.21 K/uL (0-0.5) Basophils # (Auto) 0.02 K/uL (0-0.2) RDW Standard Deviation 43.8 fL (36.4-46.3) RDW Coefficient of Variation 13.3 % (11.5-14.5) Immature Granulocyte % (Auto) 0.1 % Immature Granulocyte # (Auto) 0.01 K/uL (0.00-0.02) Anion Gap 7.0 mmol/L (3-11) Est Creatinine Clear Calc Drug Dose 86.2 ml/min Estimated GFR () 99.1 Estimated GFR (Non- 85.5 BUN/Creatinine Ratio 12.4 (10-20) Calcium Level 9.3 mg/dl (8.5-10.1) Total Bilirubin 0.5 mg/dl (0.2-1) Direct Bilirubin 0.2 mg/dl (0-0.2) Aspartate Amino Transf (AST/SGOT) 23 U/L (15-37) Alanine Aminotransferase (ALT/SGPT) 31 U/L (12-78) Alkaline Phosphatase 125 U/L (45-117) Total Protein 8.0 gm/dl (6.4-8.2) Albumin 3.7 gm/dl (3.4-5.0) Lipase 101 U/L (73-393) Urine Color YELLOW Urine Appearance CLEAR (CLEAR) Urine pH 7.0 (4.5-7.5) Urine Specific [place] 1.013 (1.000-1.030) Urine Protein NEG (NEG) Urine Glucose (UA) NEG (NEG) Urine Ketones NEG (NEG) Urine Occult Blood NEG (NEG) Urine Nitrite NEG (NEG) Urine Bilirubin NEG (NEG) Urine Urobilinogen NEG (NEG) Urine Leukocyte Esterase NEG (NEG) Urine WBC (Auto) 1-5 /hpf (0-5) Urine RBC (Auto) 0-4 /hpf (0-4) Urine Hyaline Casts (Auto) 1-5 /lpf (0-5) Urine Epithelial Cells (Auto) 5-10 /lpf (0-5) Urine Bacteria (Auto) NEG (NEG) Medications Administered Medications (Trade) Dose Ordered Sig/[place] Route Start Time Stop Time Status Last Admin Dose Admin Fentanyl Citrate (Fentanyl Inj) 50 mcg NOW STAT IV 03/06/18 05:43 03/06/18 05:45 DC 03/06/18 05:57 50 MCG Ondansetron HCl (Zofran Inj) 4 mg NOW STAT IV 03/06/18 05:43 03/06/18 05:45 DC 03/06/18 05:57 4 MG Sodium Chloride 1,000 ml @ 999 mls/hr Q1H1M STAT IV 03/06/18 05:43 03/06/18 06:43 DC 03/06/18 05:57 999 MLS/HR Hydromorphone HCl (Dilaudid Inj) 1 mg NOW STAT IV 03/06/18 07:01 03/06/18 07:02 DC 03/06/18 07:08 1 MG Medical Decision Differential: Renal Colic, Pyelonephritis, Hydronephrosis, Appendicitis, Diverticulitis, Retroperitoneal Bleed/Infection, Aortic Pathology, MSK, Neurologic Pathology, amongst other pathologies entertained. 77 yr old female with acute onset right flank pain starting yesterday with associated nausea. Recent lumbar compression fracture but given her amount of patient stating this is different I felt it prudent to further evaluate with CT imaging despite this having been done 1 month ago. Pain controlled with IV fentanyl while awaiting work up. Labs unremarkable other than hypoNa of 126 which is within her periodic fluctuations over the last few years. CT reveals worsening compression fractures of lumbar spine. Patient feeling improved and wishes to go home after dose IV Dilaudid. I did offer admission or Rehab evaluation though she declines this at this time. She is aware she can return at any time if she is not doing well at home with this. Discussed spine precautions at home. Discussed narcotics risks/restrictions as well as constipation remedies/approach. Case management asked to help with setting up Ortho eval (previously seen by Dr Bernard thus asked if Dr Friend would be available), as well as for them to contact PCP to make them aware and need for urgent follow up. Patient with no neuro deficits and feeling well at discharge. No evidence of intraabdominal issues at this time, nor UTI/Renal involvement. Head Trauma GCS Score: 15 Medication Reconcilliation Current Medication List: was personally reviewed by me Blood Pressure Screening Patient's blood pressure: Elevated blood pressure Blood pressure disposition: Elevated BP felt to be situational Impression Primary Impression: Compression of lumbar vertebra Additional Impression: Acute right flank pain Departure Information Dispostion Home / Self-Care Condition GOOD Prescriptions Oxycodone Immediate Rel Tab (ROXICODONE IR) 5 Mg Tab 0.5-1 TAB PO Q8H Y for Severe Pain, #12 TAB Prov: Keon Celestin M.D. 03/06/18 Referrals Dee Beyer M.D. (PCP) Yuniel Friend, DO Patient Instructions My [facility] Additional Instructions Your imaging reveals worsening of the compression fractures in your low back. If you develop severe pain, weakness in leg/legs, urinary/bowel control issues or other concerning symptoms return to ED for further evaluation. Avoid bending, lifting, twisting, or other stressors on your low back. Use Tylenol as needed for mild discomfort and Oxy IR as needed for worsening pain. You have received a narcotic pain medication prescription. Use 0.5 to 1 tablet two to three times daily as needed. These medications may cause drowsiness and should not be used with other sedative medications. Do not drive, drink alcohol , perform dangerous activities, nor make important decisions after taking these medications. jail use or inappropriate use may lead to addiction. Please follow up with your PCP as soon as possible and hopefully next week with Spinal Surgeon. Problem Qualifiers
[2018-03-06 06:05] LABS: BASO % 0.3 %; BASO ABS # 0.02 K/uL (0-0.2); EOS % 3.1 %; EOS ABS # 0.21 K/uL (0-0.5); HEMATOCRIT 38.3 % (37-47); HEMOGLOBIN 13.6 g/dL (12.0-16.0); IG# 0.01 K/uL (0.00-0.02); LYMPH % 15.7 %; LYMPH ABS # 1.06 K/uL (1.2-3.4); MEAN CELL VOLUME 90.8 fL (80-100); MEAN CORPUSCULAR HEMOGLOBIN 32.2 pg (25-34); MEAN CORPUSCULAR HGB CONC 35.5 g/dl (32-36); MEAN PLATELET VOLUME 8.7 fL (7.4-10.4); MONO ABS # 0.74 K/uL (0.11-0.59); NEUT % 69.8 %; NEUT ABS # 4.71 K/uL (1.4-6.5); PLATELET COUNT 287 K/uL (130-400); RED CELL DISTRIBUTION WIDTH CV 13.3 % (11.5-14.5); RED CELL DISTRIBUTION WIDTH SD 43.8 fL (36.4-46.3); WHITE BLOOD COUNT 6.75 K/uL (4.8-10.8)
[2018-03-06] MEDS ORDERED: LIDO1PAD2 TOP (06:19)
[2018-03-06] MEDS ORDERED: DOXY100C76 PO (06:19)
[2018-03-06] MEDS ORDERED: PRED10TA PO (06:19)
[2018-03-06] MEDS ORDERED: CHOL4POW12 PO (06:19)
[2018-03-06 06:23] LABS: ALBUMIN 3.7 gm/dl (3.4-5.0); CALCIUM 9.3 mg/dl (8.5-10.1); CREATININE 0.64 mg/dl (0.60-1.20); POTASSIUM 3.7 mmol/L (3.5-5.1)
--- NOTE | 2018-03-06 06:55 | DIAGNOSTIC IMAGING REPORT ---
CT OF THE ABDOMEN AND PELVIS WITHOUT CONTRAST, STONE PROTOCOL CLINICAL HISTORY: Sudden onset right flank pain. COMPARISON STUDY: CT of the abdomen and pelvis January 30, 2018. TECHNIQUE: Helical axial images of the abdomen and pelvis were obtained without IV or oral contrast according to renal stone protocol. A dose lowering technique was utilized adhering to the principles of ALARA. FINDINGS: Visualized portions of the lower chest demonstrate a moderate sized hiatal hernia. Apparent right middle lobe opacity likely reflects atelectasis with elevation/eventration of the right hemidiaphragm. This is incompletely imaged on this exam. No renal, ureteral or bladder calculi are present. There is no hydronephrosis or hydroureter. There is no biliary ductal dilatation status post cholecystectomy. The liver, spleen, adrenal glands and pancreas are unremarkable. A right lower quadrant mesh is present. There is no bowel obstruction. No pneumatosis, free air or portal venous gas is present. The appendix is not visualized. There is sigmoid diverticulosis without evidence for acute diverticulitis. No abdominal or pelvic lymphadenopathy is present. There is no ascites. Note is made of L1-L4 compression fractures. Fractures were present on exam of January 30, 2018 but vertebral body height loss has increased. There is mild retropulsion at the L1 and L2 levels. The lumbar spine will be reported separately. IMPRESSION: 1. No acute process within the abdomen or pelvis on unenhanced exam. 2. No urinary calculi or hydronephrosis. 3. L1, L2, L3 and L4 compression fractures which are likely subacute. Interval loss of vertebral body height since exam of January 30, 2018. 4. Apparent right middle lobe opacity which likely reflects atelectasis with elevation/eventration of the right hemidiaphragm which is incompletely imaged on this exam. A follow-up nonemergent chest CT is recommended to exclude the less likely possibility of an underlying lesion. Electronically signed by: Marc Hoover M.D. 03/06/2018 6:54 AM Dictated Date/Time: 03/06/2018 6:42 AM
[2018-03-06] MEDS ORDERED: HYDROmorphone INJ 1 MG/ML SYR IV STA (07:01)
--- NOTE | 2018-03-06 07:21 | DIAGNOSTIC IMAGING REPORT ---
LUMBAR SPINE WITHOUT HISTORY: 77 years-old Female worsening low back pain, recent lumbar compression fx acute low back pain with history of recent acute compression deformity of L4. COMPARISON: CT lumbar spine 01/30/2018, lumbar spine radiographs 01/16/2018. TECHNIQUE: Multiple axial CT images of the lumbar spine were obtained without IV contrast. A dose lowering technique was used consistent with the principals of PAM. FINDINGS: Prior cholecystectomy. Mild to moderate atherosclerosis of the aorta. No aneurysm or bulky adenopathy identified. 22 degrees levoscoliosis of the lumbar spine measured from L1-L4. The bones appear moderately demineralized. There are moderate degenerative changes about the bilateral sacroiliac joints. No evidence of sacral insufficiency fracture. Transverse processes and imaged ribs appear intact. Imaged iliac bones also appear intact. Subacute appearing compression deformity of the L4 vertebral body is again noted with progressive central loss of vertebral body height now measuring approximately 1.5 cm, previously 1.7 cm. No significant retropulsion at this level identified. Superior endplate Schmorl's node with possible subacute compression deformity at L3 has not significantly changed from comparison. Subacute appearing compression deformity at L2 is also redemonstrated with progressive central loss of vertebral body height. No significant retropulsion at L2 identified. Subacute compression deformity at L1 with progressive central loss of vertebral body height. There is 23% loss of anterior endplate vertebral body heights. 3 mm retropulsion of the superior aspect of the posterior endplate L1. No significant central canal stenosis. Severe multilevel facet arthrosis with at least moderate multilevel endplate spurring. Severe multilevel intervertebral disc space narrowing. The bones appear moderately demineralized. Evaluation of the central canal and neuroforamina are better assessed by MRI. Posterior elements appear intact. IMPRESSION: 1. Subacute appearing compression deformities at L1-L4 with mild progressive loss of vertebral body height as above. 3 mm retropulsion at L1. No significant central canal or foraminal narrowing. 2. 22 degrees levoscoliosis with moderately demineralized appearance of the bones. 3. Severe multilevel intervertebral disc space narrowing and facet arthrosis with at least moderate multilevel endplate spurring. The above report was generated using voice recognition software. It may contain grammatical, syntax or spelling errors. Electronically signed by: Bertrand Smallwood M.D. 03/06/2018 7:20 AM Dictated Date/Time: 03/06/2018 6:57 AM
[2018-03-06 07:42] VITALS: BP 194/87; PULSE 84; O2SAT 95
[2018-03-06] MEDS ORDERED: OXYC1TAB3 PO (07:45)
== END 2018-03-06 08:10 | disposition home or self-care (01) ==
LOC: C.EDB 05:24 → C.EDA 08:10
DX: R10.31 Right lower quadrant pain (principal); E87.1 Hypo-osmolality and hyponatremia; Z90.49 Acquired absence of other specified parts of digestive tract; I10 Essential (primary) hypertension; Z85.3 Personal history of malignant neoplasm of breast; J44.9 Chronic obstructive pulmonary disease, unspecified; K21.9 Gastro-esophageal reflux disease without esophagitis; Z96.659 Presence of unspecified artificial knee joint; Z80.9 Family history of malignant neoplasm, unspecified; Z83.3 Family history of diabetes mellitus; Z82.49 Family history of ischemic heart disease and other diseases of the circulatory system; Z87.891 Personal history of nicotine dependence; Z79.899 Other long term (current) drug therapy

== ENCOUNTER 2018-03-08 21:39 | Emergency (ER) | payer OTHER ==
[~2018-03-08] VITALS: Ht 165.1 cm; Wt 104.0 kg
[~2018-03-08 21:39] MED LIST changes: +CHOL4POW12 PO; -CIPR1TAB10 PO; +DOXY100C76 PO; -LDDP5 TD; +LIDO1PAD2 TOP; +OXYC1TAB3 PO; +PRED10TA PO
[2018-03-08 21:41] VITALS: TEMP 36.8; Ht 165.1 cm; Wt 104.0 kg
[2018-03-08] MEDS ORDERED: HYDROmorphone INJ 1 MG/ML SYR IV STA (22:16)
[2018-03-08] MEDS ORDERED: ONDANSETRON INJ 2 MG/ML 2 ML VIAL IV STA (22:16)
[2018-03-08 22:53] LABS: BASO % 0.6 %; BASO ABS # 0.03 K/uL (0-0.2); EOS % 2.3 %; EOS ABS # 0.12 K/uL (0-0.5); HEMATOCRIT 37.6 % (37-47); HEMOGLOBIN 13.9 g/dL (12.0-16.0); IG# 0.01 K/uL (0.00-0.02); LYMPH % 29.3 %; LYMPH ABS # 1.51 K/uL (1.2-3.4); MEAN CORPUSCULAR HEMOGLOBIN 33.3 pg (25-34); MEAN PLATELET VOLUME 9.3 fL (7.4-10.4); MONO % 12.4 %; MONO ABS # 0.64 K/uL (0.11-0.59); NEUT % 55.2 %; NEUT ABS # 2.84 K/uL (1.4-6.5); PLATELET COUNT 348 K/uL (130-400); RED CELL DISTRIBUTION WIDTH SD 42.6 fL (36.4-46.3); WHITE BLOOD COUNT 5.15 K/uL (4.8-10.8)
[2018-03-08] MEDS ORDERED: SODIUM CHLORIDE 0.9% 500ML 500 ML IV STA (23:03)
[2018-03-08 23:05] LABS: ALBUMIN 3.6 gm/dl (3.4-5.0); CALCIUM 9.3 mg/dl (8.5-10.1); CREATININE 0.57 mg/dl (0.60-1.20)
[2018-03-08] MEDS ORDERED: ONDANSETRON HOME PACK 4MG OD TAB PO ONE (23:30)
[2018-03-09 00:05] VITALS: BP 160/76; PULSE 82; O2SAT 98
--- NOTE | 2018-03-09 02:03 | EMERGENCY ROOM VISIT NOTE ---
History Report prepared by Dorian: Carlos Eduardo Glover Under the Supervision of: Dr. Tre Cherry M.D. First contact with patient: 22:06 Chief Complaint: FALL Stated Complaint: FALL, FRACTURE TAILABONE AND SPINE, IN PAIN History of Present Illness The patient is a 77 year old female who presents to the Emergency Room with complaints of constant, severe sharp back pain beginning several weeks ago secondary to compression fractures in her spine. The patient reports falling 5 weeks ago for which she was seen in the ED 3 times over the past 5 weeks. She denies any subsequent falls. The patient notes developing a loss of appetite, abdominal pain, and shortness of breath over the past several days. She also states that she began experiencing vomiting and dry heaves earlier today. The patient denies any numbness or weakness in her legs, chest pain, or bowel incontinence. She reports taking her blood pressure medication this morning as well at 1/2 of an oxycodone tablet at 1400 and Tylenol at 1600. The patient states that the oxycodone provided her with mild relief of her pain. Source of History: patient Onset: several weeks ago. Position: back Symptom Intensity: severe Quality: sharp Timing: constant Modifying Factors (Worsening): other (none) Modifying Factors (Relieving): narcotics (Oxycodone. ) Associated Symptoms: + SOB, + vomiting, + abdominal pain, No chest pain, No weakness, No numbness Note: Associated Symptoms: Loss of appetite, dry heaves. Denies: Bowel incontinence. Review of Systems See HPI for pertinent positives & negatives. A total of 10 systems reviewed and were otherwise negative. Past Medical & Surgical Medical Problems: (1) Benign hypertension (2) Breast cancer (3) Chronic obstructive lung disease (4) Gastroesophageal reflux disease (5) Leukopenia Surgical Problems: (1) History of appendectomy (2) History of cholecystectomy (3) History of hernia repair (4) History of knee replacement Family History FH: cancer FH: diabetes FH: gallbladder disease FH: heart disease FH: hypertension FH: lung disease Social History Smoking Status: Former Smoker Alcohol Use: occasionally Marital Status: Housing Status: lives with significant other Occupation Status: retired Current/Historical Medications Scheduled Atenolol (Tenormin), 50 MG PO QAM Cholestyramine (Questran), 4 GM PO DAILY Levothyroxine Sodium (Levothyroxine Sodium), 25 MG PO QPM Multiple Vitamins W/ Minerals (Centrum), 1 TAB PO DAILY Potassium Chloride Microencaps (Potassium Chloride Er), 20 MEQ PO QAM Sertraline (Zoloft), 100 MG PO QAM Simvastatin (Zocor), 20 MG PO QPM Scheduled PRN Albuterol Sulfate (Proair Respiclick), 2 PUFFS INH Q4H PRN for SOB/Wheezing Alprazolam (Xanax), 0.5-1 MG PO DAILY PRN for Anxiety and/or Sedation Allergies Coded Allergies: Sulfa Antibiotics (Verified Allergy, Severe, GI SYMPTOMS, 03/08/18) Penicillins (Verified Allergy, Intermediate, RASH, 03/08/18) Physical Exam Vital Signs Date Time Temp Pulse Resp B/P (MAP) Pulse Ox O2 Delivery O2 Flow Rate FiO2 03/09/18 00:05 82 20 160/76 98 03/08/18 23:04 83 20 157/81 96 Room Air 03/08/18 22:30 79 20 187/88 93 Nasal Cannula 1.0 03/08/18 21:41 36.8 86 18 186/101 97 Room Air Physical Exam Constitutional: Vital signs reviewed. Eyes: Pupils are equal round reactive to light. Conjunctiva are noninjected. ENT: Pharynx is clear without erythema or exudate. Mucous membranes are moist. Neck supple without meningeal signs. Respiratory: Clear to auscultation bilaterally. Breath sounds are equal bilaterally. Cardiovascular: Regular rate and rhythm. No rubs or gallops. GI: Soft, nondistended and nontender. Bowel sounds are present. Musculoskeletal: Midline tenderness throughout lumbar sacral spine. No step off or deformity. Integumentary: No cyanosis. Neurological: The patient is awake and alert. No focal deficits. Normal motor and sensation throughout lower extremities. Psychiatric: Normal affect. Medical Decision & Procedures Laboratory Results 03/08/18 22:10 Red Blood Count 4.18, Mean Corpuscular Volume 90.0, Mean Corpuscular Hemoglobin 33.3, Mean Corpuscular Hemoglobin Concent 37.0, Mean Platelet Volume 9.3, Neutrophils (%) (Auto) 55.2, Lymphocytes (%) (Auto) 29.3, Monocytes (%) (Auto) 12.4, Eosinophils (%) (Auto) 2.3, Basophils (%) (Auto) 0.6, Neutrophils # (Auto ) 2.84, Lymphocytes # (Auto) 1.51, Monocytes # (Auto) 0.64, Eosinophils # (Auto ) 0.12, Basophils # (Auto) 0.03 03/08/18 22:10 Test 03/08/18 22:10 White Blood Count 5.15 K/uL (4.8-10.8) Red Blood Count 4.18 M/uL (4.2-5.4) Hemoglobin 13.9 g/dL (12.0-16.0) Hematocrit 37.6 % (37-47) Mean Corpuscular Volume 90.0 fL (80-100) Mean Corpuscular Hemoglobin 33.3 pg (25-34) Mean Corpuscular Hemoglobin Concent 37.0 g/dl (32-36) Platelet Count 348 K/uL (130-400) Mean Platelet Volume 9.3 fL (7.4-10.4) Neutrophils (%) (Auto) 55.2 % Lymphocytes (%) (Auto) 29.3 % Monocytes (%) (Auto) 12.4 % Eosinophils (%) (Auto) 2.3 % Basophils (%) (Auto) 0.6 % Neutrophils # (Auto) 2.84 K/uL (1.4-6.5) Lymphocytes # (Auto) 1.51 K/uL (1.2-3.4) Monocytes # (Auto) 0.64 K/uL (0.11-0.59) Eosinophils # (Auto) 0.12 K/uL (0-0.5) Basophils # (Auto) 0.03 K/uL (0-0.2) RDW Standard Deviation 42.6 fL (36.4-46.3) RDW Coefficient of Variation 13.0 % (11.5-14.5) Immature Granulocyte % (Auto) 0.2 % Immature Granulocyte # (Auto) 0.01 K/uL (0.00-0.02) Anion Gap 9.0 mmol/L (3-11) Est Creatinine Clear Calc Drug Dose 97.3 ml/min Estimated GFR () 102.9 Estimated GFR (Non- 88.8 BUN/Creatinine Ratio 10.8 (10-20) Calcium Level 9.3 mg/dl (8.5-10.1) Total Bilirubin 0.5 mg/dl (0.2-1) Direct Bilirubin mg/dl (0-0.2) Aspartate Amino Transf (AST/SGOT) U/L (15-37) Alanine Aminotransferase (ALT/SGPT) 33 U/L (12-78) Alkaline Phosphatase 121 U/L (45-117) Total Protein 8.0 gm/dl (6.4-8.2) Albumin 3.6 gm/dl (3.4-5.0) Lipase 92 U/L (73-393) Laboratory results as reviewed by me. Medications Administered Medications (Trade) Dose Ordered Sig/Edmond Route Start Time Stop Time Status Last Admin Dose Admin Hydromorphone HCl (Dilaudid Inj) 1 mg NOW STAT IV 03/08/18 22:16 03/08/18 22:18 DC 03/08/18 22:28 1 MG Ondansetron HCl (Zofran Inj) 4 mg NOW STAT IV 03/08/18 22:16 03/08/18 22:18 DC 03/08/18 22:28 4 MG Sodium Chloride 500 ml @ 999 mls/hr Q31M STAT IV 03/08/18 23:03 03/08/18 23:33 DC 03/08/18 23:03 999 MLS/HR Ondansetron HCl (ZOFRAN ODT 4MG Home Pack) 1 homepack UD ONCE PO 03/08/18 23:30 03/08/18 23:31 DC 03/08/18 23:30 1 HOMEPACK ED Course 2207: The patient was evaluated in room C12. A complete history and physical exam was performed. 2216: Ordered Zofran Inj 4mg IV and Dilaudid Inj 1mg IV. 2300: I reevaluated the patient. Her blood pressure is now 152/81. She is asking for IV fluids. 2303: Ordered Sodium Chloride 500 ml @ 999 mls/hr IV. 2325: I had a long discussion with the patient regarding the dosing of her pain medications. She is willing to go home. I talked to her about her sodium and water intake. The patient thought that Dr. Celestin had told her to drink 6 bottles of water a day. I told her to limit her water intake to 6 glasses per day. She with follow up with Dr. Friend in 3 days. 2329: Upon reevaluation, the patient appeared to have improvement of her symptoms. I discussed fe's findings with her. She verbalized agreement of the treatment plan. She was discharged home. 2330: Ordered Ondansetron HCL 1 homepack PO Medical Decision This is a 77-year-old female who presents with back pain and elevated blood pressure with vomiting. Differential diagnosis includes compression fracture, spinal stenosis, lumbar disc disease, medication noncompliance, gastritis. I did perform a limited focused review of portions of the patient's old chart on the electronic medical record. The patient was seen on March 06 for abdominal and flank pain. She had hyponatremia and worsening compression fractures of lumbar spine. She was discharged with oxycodone. I did evaluate the patient as noted above. The patient has several compression fractures based on her prior visits. She is presenting with persistent pain from these fractures. IV access was established. The patient was placed on a continuous ela teacher. Her blood pressure is very high but she is in a lot of pain which likely is driving it up. I did treat her with Dilaudid, Zofran and normal saline IV. I did order and review the patient's blood work as noted in the electronic medical record. She does have chronic hyponatremia with a sodium of 124. I did reassess the patient. She states she is feeling much better at this time. I did discuss the test results with her. I did recommend fluid restriction to limit her hyponatremia from progressing. She was advised to see her doctor and have it rechecked. She does have an appointment next week. I did speak in detail with the patient and her about the possibility of rehab or hospitalization. After discussion she decided that she was comfortable with going home and following up with her orthopedic spine doctor in 3 days per her appointment. She states that she really has not been using the oxycodone very much and I did tell her that it was okay to take it. She was not taking it because she was taking Tylenol at the same time but I did explain to her that she can take the 2 medications together. The patient was discharged in good condition. She was given return instructions as outlined below. Medication Reconcilliation Current Medication List: was personally reviewed by me Blood Pressure Screening Patient's blood pressure: Elevated blood pressure Blood pressure disposition: Referred to PCP The patient is hypertensive. Impression Primary Impression: Low back pain Additional Impressions: Lumbar compression fracture Hypernatremia Scribe Attestation The scribe's documentation has been prepared under my direct and personally reviewed by me in its entirety. I confirm that the note above accurately reflects all work, treatment, procedures, and medical decision making performed by me. Departure Information Dispostion Home / Self-Care Referrals Dee Beyer M.D. (PCP) Forms HOME CARE DOCUMENTATION FORM, IMPORTANT VISIT INFORMATION Patient Instructions ED Fx Comp Vertebral, Hyponatremia Dc, My [facility] Additional Instructions You have been examined and treated today on an emergency basis only. This is not a substitute for, or an effort to provide, complete comprehensive medical care. It is impossible to recognize and treat all injuries or illnesses in a single emergency department visit. It is therefore important that you follow up closely with your physician. Call as soon as possible for an appointment. Have her repeat your sodium which was low today. Also follow-up with Dr. Friend per your appointment on Friday. Return for worsening symptoms or if you develop fever, vomiting, abdominal pain, loss of control of your bowel or bladder, numbness or weakness to your legs, numbness to your private area, difficulty urinating, or any other concerning symptoms. Problem Qualifiers Primary Impression: Low back pain Chronicity: chronic Back pain laterality: midline Sciatica presence: without sciatica Qualified Codes: M54.5 - Low back pain; G89.29 - Other chronic pain Additional Impressions: Lumbar compression fracture Encounter type: initial encounter Fracture type: closed
== END 2018-03-09 00:10 | disposition home or self-care (01) ==
LOC: C.EDB 21:41 → C.EDC 03-09 00:10
DX: M54.5 Low back pain (principal); G89.29 Other chronic pain; S32.009A Unspecified fracture of unspecified lumbar vertebra, initial encounter for closed fracture; E87.0 Hyperosmolality and hypernatremia; W19.XXXA Unspecified fall, initial encounter; I10 Essential (primary) hypertension; J44.9 Chronic obstructive pulmonary disease, unspecified; Z85.3 Personal history of malignant neoplasm of breast; Z87.891 Personal history of nicotine dependence; Z90.49 Acquired absence of other specified parts of digestive tract; Z90.89 Acquired absence of other organs; Z96.659 Presence of unspecified artificial knee joint; Z88.0 Allergy status to penicillin; Z88.1 Allergy status to other antibiotic agents; Z83.3 Family history of diabetes mellitus; Z82.49 Family history of ischemic heart disease and other diseases of the circulatory system

== ENCOUNTER → 2018-03-11 | Outpatient (CLI) | payer OTHER ==
[~2018-03-11] MED LIST changes: -CALC-20 PO; -DOXY100C76 PO; -HYDR-5688 PO; -LIDO1PAD2 TOP; -OXYC1TAB3 PO; -PRED10TA PO
[2018-03-11 14:27] LABS: ALBUMIN 3.5 gm/dl (3.4-5.0); ALT/SGPT 35 U/L (12-78); AST/SGOT 33 U/L (15-37); BLOOD UREA NITROGEN 11 mg/dl (7-18); CALCIUM 8.9 mg/dl (8.5-10.1); CARBON DIOXIDE 22 mmol/L (21-32); CHOLESTEROL 137 mg/dl (0-200); CREATININE 0.78 mg/dl (0.60-1.20); GLUCOSE 84 mg/dl (70-99); POTASSIUM 3.8 mmol/L (3.5-5.1); SODIUM 121 mmol/L (136-145)
[2018-03-11 14:34] LABS: ALKALINE PHOSPHATASE 110 U/L (45-117); LDL CHOLESTEROL CALCULATED 59 mg/dl; TOTAL PROTEIN 7.6 gm/dl (6.4-8.2)
== END | disposition home or self-care (01) ==
LOC: C.LABPVFM 07:36
PROVIDERS: ATTEND Family Medicine
DX: F32.9 Major depressive disorder, single episode, unspecified (principal); E78.5 Hyperlipidemia, unspecified; E03.9 Hypothyroidism, unspecified; I10 Essential (primary) hypertension; E87.1 Hypo-osmolality and hyponatremia

== ENCOUNTER → 2018-03-18 | Outpatient (CLI) | payer OTHER ==
[~2018-03-18] MED LIST changes: +ASPI81TA28 PO; +CALC-51 PO; +FLUT0.15 INTNAS; +HYDR2TAB48 PO; +ZOFRAN PO
[2018-03-18 12:46] LABS: ALBUMIN 3.8 gm/dl (3.4-5.0); BLOOD UREA NITROGEN 12 mg/dl (7-18); CARBON DIOXIDE 26 mmol/L (21-32); GLUCOSE 82 mg/dl (70-99); POTASSIUM 4.5 mmol/L (3.5-5.1); SODIUM 129 mmol/L (136-145)
[2018-03-18 13:11] LABS: SODIUM RANDOM URINE 59 mEq/L
[2018-03-18 15:46] LABS: OSMOLALITY,URINE 531 mOms/kg (500-800)
== END | disposition home or self-care (01) ==
LOC: C.LABPVFM 10:02
PROVIDERS: ATTEND Family Medicine
DX: E87.1 Hypo-osmolality and hyponatremia (principal); M48.50XA Collapsed vertebra, not elsewhere classified, site unspecified, initial encounter for fracture

== ENCOUNTER 2018-03-23 09:43 | Observation (INO) | payer OTHER ==
[2018-03-19 09:29] VITALS: BMI 37.0
--- NOTE | 2018-03-19 10:08 | PAT Medication Instructions ---
Service Date March 19, 2018. Current Home Medication List Albuterol Sulfate (Proair Respiclick), 2 PUFFS INH Q4H PRN for SOB/Wheezing Alprazolam (Xanax), 0.5-1 MG PO BID PRN for Anxiety and/or Sedation Aspirin (Aspirin Ec), 81 MG PO QPM Atenolol (Tenormin), 50 MG PO QAM Fluticasone Propionate (Nasal) (Flonase Allergy Relief), 1 SPRAYS INTNAS BID PRN for RN Hydromorphone Hcl (Dilaudid), 2 MG PO Q4-6H Levothyroxine Sodium (Levothyroxine Sodium), 25 MG PO HS Potassium Chloride Microencaps (Potassium Chloride Er), 20 MEQ PO QAM Sertraline (Zoloft), 100 MG PO QAM Simvastatin (Zocor), 20 MG PO QPM [Calcium], 1,200 MG PO QAM [Zofran], 1 TAB PO PRN Medication Instructions For Your Scheduled Surgery -Check with your surgeon for instructions: Aspirin (Aspirin Ec), 81 MG PO QPM - Hold the following medications the morning of surgery: Potassium Chloride Microencaps (Potassium Chloride Er), 20 MEQ PO QAM [Calcium], 1,200 MG PO QAM - Take the following medications the morning of surgery with a sip of water: Albuterol Sulfate (Proair Respiclick), 2 PUFFS INH Q4H PRN for SOB/Wheezing (if needed, and bring it with you to the hospital) Alprazolam (Xanax), 0.5-1 MG PO BID PRN for Anxiety and/or Sedation (if needed) Atenolol (Tenormin), 50 MG PO QAM Fluticasone Propionate (Nasal) (Flonase Allergy Relief), 1 SPRAYS INTNAS BID PRN (if needed) Hydromorphone Hcl (Dilaudid), 2 MG PO Q4-6H (if needed, but must be taken at least four hours before surgery) Sertraline (Zoloft), 100 MG PO QAM [Zofran], 1 TAB PO PRN (if needed) - Take the following medications as scheduled the night before surgery: Albuterol Sulfate (Proair Respiclick), 2 PUFFS INH Q4H PRN for SOB/Wheezing (if needed) Alprazolam (Xanax), 0.5-1 MG PO BID PRN for Anxiety and/or Sedation (if needed) Fluticasone Propionate (Nasal) (Flonase Allergy Relief), 1 SPRAYS INTNAS BID PRN (if needed) Hydromorphone Hcl (Dilaudid), 2 MG PO Q4-6H Levothyroxine Sodium (Levothyroxine Sodium), 25 MG PO HS Simvastatin (Zocor), 20 MG PO QPM [Zofran], 1 TAB PO PRN (if needed) If you have any questions please call us at [phone] or [phone] or [phone]
[2018-03-19 10:59] LABS: PTT PATIENT 24.8 SECONDS (21.0-31.0)
--- NOTE | 2018-03-22 21:32 | HISTORY & PHYSICAL EXAMINATION ---
DATE OF ADMISSION: 03/23/2018 For kyphoplasty tomorrow at [facility]. CHIEF COMPLAINT: Back pain. HISTORY OF PRESENT ILLNESS: Chacha is delightful. She suffered a fall injury and a compression fracture of the L2 and L4 vertebrae. She has significant pain. She is poorly functional. She is in need of some care to help improve her quality of life. I have offered her a kyphoplasty procedure. She has back pain only with no numbness, tingling, weakness to the extremities. PAST MEDICAL HISTORY: Anxiety, thyroid, breast carcinoma, hypertension. PAST SURGICAL HISTORY: Knee surgery, breast carcinoma surgery. ALLERGIES: SULFA, PENICILLIN. SOCIAL HISTORY: . No alcohol. Minimal tobacco. Little activity. , non-ETOH user. REVIEW OF SYSTEMS: Denies any fevers, sweats, chills, weight loss or gain. Ear, nose and throat negative. Denies any chest pain, palpitations or changes. Admits to occasional shortness of breath. No nausea, vomiting, urgency, frequency. Denies any lightheadedness, dizziness or weakness. She admits to stiffness, pain, muscle pain without deficit. She admits to easy bruisability. MEDICATIONS: Negative. PHYSICAL EXAMINATION:: VITAL SIGNS: Blood pressure 130/80, pulse 80. She is 5 feet 5 inches, 220 pounds. Afebrile. HEENT: Essentially normal. Specifically, pupils are reactive to light and accommodation. Ear, nose and throat, clear. CARDIAC: Normal S1 and S2, no S3. LUNGS: Clear to auscultation. No rales, rhonchi, wheezing. ABDOMEN: Soft, nontender. EXTREMITIES: Intact. Slight swelling, slight varicosities, no neurological deficit. She does have pain with percussion. SKIN/INTEGUMENTARY: Normal. IMPRESSION: L2 and L4 compression fractures of the spine. DISPOSITION: Plan includes a kyphoplasty procedure, L2 and L4.
[~2018-03-23] VITALS: Ht 165.1 cm; Wt 101.8 kg
[~2018-03-23 09:43] MED LIST changes: +CEFAZOLIN 2000MG IV PUSH 15 ML IV SCH; -CHOL4POW12 PO; +LACTATED RINGER'S 1000ML 1,000 ML IV SCH; -MULTTAB5 PO; +NSS 1000ML IV SCH
[2018-03-23 10:24] VITALS: BP 198/98; PULSE 87; TEMP 36.6; O2SAT 97; Ht 165.1 cm; Wt 101.8 kg
[2018-03-23] MEDS ORDERED: ONDANSETRON INJ 2 MG/ML 2 ML VIAL ONE (11:44)
[2018-03-23] MEDS ORDERED: DEXAMETHASONE SOD INJ 4 MG/ML VIAL ONE (11:44)
[2018-03-23] MEDS ORDERED: FENTANYL CITRATE INJ 50 MCG/1 ML 2 ML VIAL ONE ×2 (11:44→16:20)
[2018-03-23] MEDS ORDERED: PROPOFOL IV EMULSION 10 MG/ML 20 ML VIAL ONE (11:44)
[2018-03-23] MEDS ORDERED: LIDOCAINE HCL 2% 2 ML VIAL (20MG/ML) ONE (11:44)
[2018-03-23] MEDS ORDERED: ROCURONIUM BROMIDE 10 MG/ML 5 ML VIAL ONE (11:44)
[2018-03-23] MEDS ORDERED: EpHEDrine SULFATE INJ 50 MG/ML AMP ONE (11:48)
[2018-03-23] MEDS ORDERED: ONDANSETRON INJ 2 MG/ML 2 ML VIAL IV PRN ×2 (12:45→15:15)
[2018-03-23] MEDS ORDERED: ATROPINE SULFATE 0.1 MG/ML 5ML SYR IV PRN (12:45)
[2018-03-23] MEDS ORDERED: CONRAY 60% 50 ML VIAL ONE (13:14)
[2018-03-23] MEDS ORDERED: BUPIVACAINE 0.5 % 5 MG/1 ML PF 10ML VIAL ONE (13:16)
[2018-03-23] MEDS ORDERED: EpINEphrine INJ 1MG/ML AMP 1 MG/ML AMP ONE ×2 (13:16→14:57)
--- NOTE | 2018-03-23 13:20 | History & Physical Bridge Note ---
H&P Re-Evaluation Bridge Note: I have examined the patient, reviewed the History & Physical and in the interval since the performance of the History & Physical I have noted the following changes of clinical significance: No changes noted
[2018-03-23] MEDS ORDERED: BUPIVACAINE 0.5 % 5 MG/1 ML MPF 30ML VIAL ONE (14:57)
[2018-03-23] MEDS ORDERED: ESMOLOL HCL 10 MG/ML 10 ML VIAL ONE (15:11)
[2018-03-23] MEDS ORDERED: GLYCOPYRROLATE INJ 0.2 MG/ML VIAL ONE (15:11)
[2018-03-23] MEDS ORDERED: NEOSTIGMINE METHYLSULFATE 5 MG/5 ML SYR ONE (15:11)
--- NOTE | 2018-03-23 15:14 | [facility] Post Operative Brief Note ---
Immediate Operative Summary Operative Date March 23, 2018. Pre-Operative Diagnosis L2 and L4 compression fractures Post-Operative Diagnosis L2 and L4 compression fractures Procedure(s) Performed L2 and L4 Kyphoplasty Surgeon Dr. Friend Precipitate Washer Surgeon(s) Jc Pruett PA-C Estimated Blood Loss 20 cc Findings Consistent with Post-Op Diagnosis Specimens none per surgeon Anesthesia Type General
[2018-03-23] MEDS ORDERED: ALBUTEROL HFA 8 GM INHALER INH PRN (15:15)
[2018-03-23] MEDS: HYDROmorphone INJ 2 MG/ML SYR/VIAL IV PRN ×8 (15:20→16:15)
[2018-03-23] MEDS: LABETALOL HCL IV 5 MG/ML 20ML IV PRN ×4 (15:37→16:43)
--- NOTE | 2018-03-23 15:41 | DIAGNOSTIC IMAGING REPORT ---
FLUOROSCOPIC IMAGES OF THE LUMBAR SPINE CLINICAL HISTORY: L2 AND L4 KYPHOPLASTY COMPARISON STUDY: Lumbar spine MRI March 06, 2018. Fluoroscopy time: 2 minutes and 5 seconds. FINDINGS: These 5 fluoroscopic images demonstrating interval L2 and L4 kyphoplasty. Methylmethacrylate is noted. Multiple lumbar spine compression fractures are noted. IMPRESSION: Fluoroscopic images demonstrating interval L2 and L4 kyphoplasty. Electronically signed by: Marc Hoover M.D. 03/23/2018 3:39 PM Dictated Date/Time: 03/23/2018 3:37 PM
[2018-03-23] MEDS ORDERED: IV FLUIDS COMPLETED PRN (16:00)
--- NOTE | 2018-03-23 16:44 | Anesthesiology Progress Note ---
Anesthesia Post Op Note Date & Time March 23, 2018 at 16:44 Vital Signs Vital Signs Past 12 Hours Date Time Temp Pulse Resp B/P (MAP) Pulse Ox O2 Delivery O2 Flow Rate FiO2 03/23/18 16:27 91 13 03/23/18 16:27 90 13 96 03/23/18 16:26 159/82 03/23/18 16:22 91 14 03/23/18 16:22 90 14 95 03/23/18 16:21 172/83 03/23/18 16:17 90 18 97 03/23/18 16:17 90 18 03/23/18 16:16 162/76 03/23/18 16:12 88 14 03/23/18 16:12 88 14 97 03/23/18 16:11 172/76 03/23/18 16:07 92 17 99 03/23/18 16:07 93 17 03/23/18 16:06 163/65 03/23/18 16:02 90 16 03/23/18 16:02 89 16 99 03/23/18 16:01 195/98 03/23/18 15:57 92 20 100 03/23/18 15:57 93 20 03/23/18 15:52 93 20 100 03/23/18 15:52 92 20 03/23/18 15:51 185/90 03/23/18 15:47 92 18 03/23/18 15:47 92 18 100 03/23/18 15:46 182/93 03/23/18 15:42 89 19 100 03/23/18 15:42 89 19 03/23/18 15:41 169/94 03/23/18 15:40 89 14 100 18 15:40 89 14 18 15:36 193/80 18 15:35 88 18 03/23/18 15:35 88 18 100 1418 15:31 199/85 1418 15:30 90 18 100 1418 15:30 90 18 14/18 15:27 205/104 14/18 15:25 90 21 100 14/18 15:25 90 21 14/18 15:21 175/86 1418 15:20 92 18 03/23/18 15:20 92 18 100 5/14/18 15:17 192/82 03/23/18 15:16 173/137 03/23/18 15:16 36.2 95 18 192/82 100 Oxymask 10 03/23/18 10:24 36.6 87 20 198/98 (131) 97 Room Air Notes Mental Status: alert / awake / arousable, participated in evaluation Pt Amnestic to Procedure: Yes Nausea / Vomiting: adequately controlled Pain: adequately controlled Airway Patency, RR, SpO2: stable & adequate BP & HR: stable & adequate Hydration State: stable & adequate Anesthetic Complications: no major complications apparent
[2018-03-23] MEDS ORDERED: FENTANYL CITRATE INJ 50 MCG/1 ML 2 ML VIAL IV PRN (16:45)
[2018-03-23] MEDS ORDERED: NURSING VERBAL MED ORDER ONE (17:00)
[2018-03-23 17:15] VITALS: BP 183/83; PULSE 96; TEMP 36.5; O2SAT 96
[2018-03-23 17:44] VITALS: BP 174/91; PULSE 91; TEMP 36.3; O2SAT 98
[2018-03-23] MEDS: OXYCODONE/ACETAMINOPHEN 5-325 TAB PO PRN ×2 (17:54→22:02)
[2018-03-23 18:17] VITALS: BP 129/79; PULSE 96; TEMP 36.3; O2SAT 98
[2018-03-23 19:13] VITALS: BP 181/84; PULSE 101; TEMP 36.5; O2SAT 99
[2018-03-23 20:15] VITALS: BP 162/80; PULSE 98; TEMP 36.4; O2SAT 94
[2018-03-23] MEDS: LACTATED RINGER'S 1000ML 1,000 ML IV SCH (20:49)
[2018-03-23] MEDS: DOCUSATE SODIUM 100 MG CAP PO SCH (20:52)
[2018-03-23] MEDS ORDERED: ASPIRIN 81 MG ECTAB PO SCH (21:00)
[2018-03-23] MEDS ORDERED: SIMVASTATIN 20 MG TAB PO SCH (21:00)
[2018-03-23] MEDS ORDERED: LEVOTHYROXINE 25 MCG TAB PO SCH (21:00)
[2018-03-23] MEDS: DEXAMETHASONE INJ 8 MG in SYRINGE 0 ML IV SCH (21:41)
[2018-03-24] VITALS (8 sets, daily range): BP systolic 156–173; BP diastolic 64–84; PULSE 82–106; TEMP 36.5–36.9; O2SAT 92–97
--- NOTE | 2018-03-24 00:44 | OPERATIVE REPORT ---
DATE OF OPERATION: 03/23/2018 PREOPERATIVE DIAGNOSES: L4 compression fracture, L3 compression fracture. POSTOPERATIVE DIAGNOSES: L4 compression fracture, L3 compression fracture. PROCEDURE: Kyphoplasty procedure L4 and L2. SURGEON: Yuniel Friend DO WELL TENDER: Jc Pruett PA-C COMPLICATIONS: Zero. BLOOD LOSS: 20 mL. ANESTHETIC: General. DESCRIPTION OF PROCEDURE: The patient was taken to the operating room. A general intubated anesthetic provided to the patient, placed prone, scrubbed, prepped, and draped sterile. We used biplanar x-ray, which is an AP and lateral. We were able to see the pedicles of the fourth vertebrae fairly readily. We then were able to engage the trocar superolateral aspect of both pedicles at L4. We drilled, inflated, and put in the balloon. We inflated the balloon to roughly 250-320 mmHg and approximately 2 mL per side. The right side as I recall had about 2.5 mL of volume. The balloons were released, removed, and cement placed in an head of strategy fashion. The fill was excellent. We then irrigated and closed these with some 3-0 nylon suture. We repeated the same procedure up to the L2 vertebrae, skin incision, access the pedicles bilaterally. We were only able to get 0.5 mL on the left and approximately 2.5 on the right. This was all done appropriately. X-rays looked excellent. Irrigated and closed. Sterile dressing applied. The patient returned to recovery room satisfactory and stable. No apparent complications. Sponge and needle count correct at the close. I attest to the content of the Intraoperative Record and any orders documented therein. Any exception s are noted below.
[2018-03-24] MEDS ORDERED: NURSING VERBAL MED ORDER ONE (01:30)
[2018-03-24] MEDS ORDERED: ALPRAZOLAM 0.5 MG TAB PO PRN (01:30)
[2018-03-24] MEDS: OXYCODONE/ACETAMINOPHEN 5-325 TAB PO PRN ×3 (03:27→11:37)
[2018-03-24] MEDS: DEXAMETHASONE INJ 8 MG in SYRINGE 0 ML IV SCH (06:06)
[2018-03-24] MEDS ORDERED: HYDR-4383 PO (06:31)
--- NOTE | 2018-03-24 06:32 | Discharge Instructions ---
Discharge Instructions Date of Service March 24, 2018. Admission Reason for Admission: Lumbar Compression Fracture Discharge Discharge Diagnosis / Problem: same Discharge Goals Goal(s): Improve function Activity Recommendations Activity Limitations: as noted below Lifting Limitations: no more than 5 pounds Exercise/Sports Limitations: until after follow-up appointment Shower/Bathe: keep incision dry home, rest, recover . Current Hospital Diet Patient's current hospital diet: Regular Diet Discharge Diet Recommended Diet: Regular Diet Procedures Procedures Performed: L2 and L4 Kyphoplasty Pending Studies Studies pending at discharge: no Laboratory Results Lipid Panel Test 03/11/18 07:45 Range/Units Triglycerides Level 117 0-150 mg/dl Cholesterol Level 137 0-200 mg/dl HDL Cholesterol 55 mg/dl Cholesterol/HDL Ratio 2.5 LDL Cholesterol, Calculated 59 mg/dl Medical Emergencies . Who to Call and When: Medical Emergencies: If at any time you feel your situation is an emergency, please call 911 immediately. . Non-Emergent Contact Non-Emergency issues call your: Primary Care Provider . "Provider Documentation" section prepared by Yuniel Friend. .
[2018-03-24] MEDS: LACTATED RINGER'S 1000ML 1,000 ML IV SCH (07:35)
--- NOTE | 2018-03-24 07:58 | Anesthesiology Progress Note ---
Anesthesia Post Op Note Date & Time March 24, 2018 at 07:57 Vital Signs Pain Intensity: 7.0 Vital Signs Past 12 Hours Date Time Temp Pulse Resp B/P (MAP) Pulse Ox O2 Delivery O2 Flow Rate FiO2 03/24/18 07:50 94 Room Air 03/24/18 07:47 36.7 90 20 164/78 (106) 94 Room Air 03/24/18 06:11 102 93 Room Air 03/24/18 04:11 102 156/80 (105) 03/24/18 03:30 36.5 101 16 173/84 (113) 97 Nasal Cannula 2.0 03/24/18 00:05 Nasal Cannula 3.0 03/24/18 00:00 36.9 106 16 165/81 (109) 97 Nasal Cannula 2.0 03/23/18 20:15 36.4 98 16 162/80 (107) 94 Nasal Cannula 2.0 Notes Mental Status: alert / awake / arousable, participated in evaluation Pt Amnestic to Procedure: Yes Nausea / Vomiting: adequately controlled Pain: adequately controlled Airway Patency, RR, SpO2: stable & adequate BP & HR: stable & adequate Hydration State: stable & adequate Anesthetic Complications: no major complications apparent
--- NOTE | 2018-03-24 08:13 | DISCHARGE SUMMARY ---
DATE OF DISCHARGE: 03/24/18 SUBJECTIVE: She is alert, oriented. Pain is controlled. Vital signs stable. OBJECTIVE: She is afebrile. Moves all extremities. Neurologically intact, alert, oriented. Heart rate regular at 80 beats per minute. ASSESSMENT: Status post kyphoplasty procedure. PLAN: Includes discharge home later today around lunchtime. She has a prescription for Riparius on her chart. She has a walker at home. She has instructions and warnings. Essentially just want her up bed to chair, bed to the living room and bathroom, and then relaxing the rest of the time until we see her back for followup. No lifting more than 5 pounds.
[2018-03-24] MEDS ORDERED: CALCIUM CARBONATE 1250MG TAB PO SCH (09:00)
[2018-03-24] MEDS ORDERED: SERTRALINE HCL 100 MG TAB PO SCH (09:00)
[2018-03-24] MEDS ORDERED: POTASSIUM CHLORIDE 20 MEQ TABCR PO SCH (09:00)
[2018-03-24] MEDS: DOCUSATE SODIUM 100 MG CAP PO SCH (09:03)
[2018-03-24] MEDS ORDERED: HYDR-4079 PO (23:59)
== END 2018-03-24 13:50 | disposition home or self-care (01) ==
LOC: C.ACU 09:43 → C.3E 10:22 → ENRESERV 16:06
PROVIDERS: ADMIT Orthopaedic Surgery Orthopaedic Surgery of the Spine; ATTEND Orthopaedic Surgery Orthopaedic Surgery of the Spine
DX: S32.030A Wedge compression fracture of third lumbar vertebra, initial encounter for closed fracture (principal); S32.040A Wedge compression fracture of fourth lumbar vertebra, initial encounter for closed fracture; W19.XXXA Unspecified fall, initial encounter; I10 Essential (primary) hypertension; Z88.2 Allergy status to sulfonamides; Z88.0 Allergy status to penicillin; Z85.3 Personal history of malignant neoplasm of breast

== ENCOUNTER 2018-03-24 22:42 | Emergency (ER) | payer OTHER ==
[~2018-03-24] VITALS: Ht 165.1 cm; Wt 102.0 kg
[~2018-03-24 22:42] MED LIST changes: -CEFAZOLIN 2000MG IV PUSH 15 ML IV SCH; +HYDR-4383 PO; -LACTATED RINGER'S 1000ML 1,000 ML IV SCH; -NSS 1000ML IV SCH
[2018-03-24 22:49] VITALS: Ht 165.1 cm; Wt 102.0 kg
[2018-03-24] MEDS ORDERED: MoRPHine SULFATE 10 MG/ML CARP/VIAL IM STA (23:27)
[2018-03-24] MEDS ORDERED: HYDR-4079 PO (23:59)
[2018-03-25 01:08] LABS: BASO % 0.1 %; BASO ABS # 0.01 K/uL (0-0.2); EOS % 0.2 %; EOS ABS # 0.02 K/uL (0-0.5); HEMATOCRIT 34.6 % (37-47); HEMOGLOBIN 12.1 g/dL (12.0-16.0); IG# 0.02 K/uL (0.00-0.02); LYMPH % 14.6 %; LYMPH ABS # 1.39 K/uL (1.2-3.4); MEAN CELL VOLUME 91.1 fL (80-100); MEAN CORPUSCULAR HEMOGLOBIN 31.8 pg (25-34); MEAN PLATELET VOLUME 8.7 fL (7.4-10.4); MONO % 11.2 %; MONO ABS # 1.06 K/uL (0.11-0.59); NEUT % 73.7 %; NEUT ABS # 6.99 K/uL (1.4-6.5); PLATELET COUNT 304 K/uL (130-400); RED CELL DISTRIBUTION WIDTH CV 13.6 % (11.5-14.5); RED CELL DISTRIBUTION WIDTH SD 45.2 fL (36.4-46.3); WHITE BLOOD COUNT 9.49 K/uL (4.8-10.8)
[2018-03-25 01:30] LABS: ALBUMIN 3.4 gm/dl (3.4-5.0); CALCIUM 8.9 mg/dl (8.5-10.1); CREATININE 0.68 mg/dl (0.60-1.20); TOTAL PROTEIN 7.5 gm/dl (6.4-8.2)
[2018-03-25] MEDS ORDERED: MAGNESIUM CITRATE 296 ML/BTL PO ONE (02:15)
[2018-03-25 02:43] VITALS: BP 167/80; PULSE 89; TEMP 37.1; O2SAT 94
--- NOTE | 2018-03-25 04:31 | EMERGENCY ROOM VISIT NOTE ---
History First contact with patient: 23:11 Chief Complaint: PAIN (GENERALIZED) Stated Complaint: POST OP PAIN, UNABLE TO URINATE OR HAVE BM History of Present Illness The patient is a 77 year old female who presents to the Emergency Room with complaints of unable to urinate since 5 PM he was cath prior to being discharged from the hospital from her kyphoplasty that was done less than 24 hours ago. Patient also states she feels constipated. She has had prior abdominal surgeries. Patient had compression fractures that required surgery yesterday. She saw Dr. Huerta for this. No complications with this. Patient has been taking her norco for the pain. Patient denies chest pain, dyspnea, fever, chills, vomiting, diarrhea, worsening back pain, cold symptoms. Patient called her surgeon and was advised to go the ER. Review of Systems An 10 system review of systems was completed with positives and pertinent negatives listed in the HPI. Past Medical/Surgical History Medical Problems: (1) Benign hypertension (2) Breast cancer (3) Chronic obstructive lung disease (4) Gastroesophageal reflux disease (5) Leukopenia Surgical Problems: (1) History of appendectomy (2) History of cholecystectomy (3) History of hernia repair (4) History of knee replacement Family History FH: cancer FH: diabetes FH: gallbladder disease FH: heart disease FH: hypertension FH: lung disease Social History Smoking Status: Never Smoker Alcohol Use: occasionally Marital Status: Housing Status: lives with significant other Occupation Status: retired Current/Historical Medications Scheduled Aspirin (Aspirin Ec), 81 MG PO QPM Atenolol (Tenormin), 50 MG PO QAM Hydromorphone Hcl (Dilaudid), 2 MG PO Q4-6H Levothyroxine Sodium (Levothyroxine Sodium), 25 MCG PO HS Potassium Chloride Microencaps (Potassium Chloride Er), 20 MEQ PO QAM Sertraline (Zoloft), 100 MG PO QAM Simvastatin (Zocor), 20 MG PO QPM [Calcium], 1,200 MG PO QAM [Zofran], 1 TAB PO PRN Scheduled PRN Albuterol Sulfate (Proair Respiclick), 2 PUFFS INH Q4H PRN for SOB/Wheezing Alprazolam (Xanax), 0.5-1 MG PO BID PRN for Anxiety and/or Sedation Fluticasone Propionate (Nasal) (Flonase Allergy Relief), 1 SPRAYS INTNAS BID PRN for RN Hydrocodone/Acetaminophen 10MG/325MG (Lorain 10MG/325MG), 1-2 TABS PO Q6H PRN for Pain Physical Exam Vital Signs Date Time Temp Pulse Resp B/P (MAP) Pulse Ox O2 Delivery O2 Flow Rate FiO2 03/25/18 02:43 37.1 89 20 167/80 94 03/25/18 00:50 90 20 161/76 93 Room Air 03/24/18 22:49 37.1 86 18 159/79 94 Room Air Physical Exam VITALS: Vitals are noted on the nurse's note and reviewed by myself. Vital signs hypertensive. GENERAL: Pleasant female, in no acute distress, nondiaphoretic, well-developed well-nourished. SKIN: The skin was without rashes, erythema, edema, or bruising. There is no tenting of the skin. Capillary reflex less than 2 seconds. HEAD: Normocephalic atraumatic. EARS: External auditory canals clear, tympanic membranes pearly campos without erythema or effusion bilaterally. EYES: Pupils equal round and reactive to light and accommodation. Conjunctivae without injection, sclerae without icterus. Extraocular movements intact. NOSE: Patent, turbinates without inflammation or discharge. MOUTH: Mucous membranes moist. Pharynx without erythema or exudate. Uvula midline. Airway patent. Tongue does not deviate. NECK: Supple without nuchal rigidity. No lymphadenopathy. No thyromegaly. Cervical spine is nontender. No JVD. HEART: Regular rate and rhythm LUNGS: Clear to auscultation bilaterally without wheezes, rales or rhonchi. No retractions or accessory muscle use. ABDOMEN: Positive bowel sounds x 4. Normal tympanic percussion. Soft, bladder is distended, nontender, without masses or organomegaly. Armando sign negative. No guarding or rebound tenderness. No CVA tenderness MUSCULOSKELETAL: No muscle atrophy, erythema, or edema noted. Lumbar region without obvious signs of infection surrounding the surgical bandages. NEURO: Patient was alert and oriented to person place and time. Normal sensation to light and sharp touch. No focal neurological deficits. Medical Decision & Procedures Laboratory Results 03/25/18 00:50 Red Blood Count 3.80, Mean Corpuscular Volume 91.1, Mean Corpuscular Hemoglobin 31.8, Mean Corpuscular Hemoglobin Concent 35.0, Mean Platelet Volume 8.7, Neutrophils (%) (Auto) 73.7, Lymphocytes (%) (Auto) 14.6, Monocytes (%) (Auto) 11.2, Eosinophils (%) (Auto) 0.2, Basophils (%) (Auto) 0.1, Neutrophils # (Auto ) 6.99, Lymphocytes # (Auto) 1.39, Monocytes # (Auto) 1.06, Eosinophils # (Auto ) 0.02, Basophils # (Auto) 0.01 03/25/18 00:50 Test 03/25/18 00:30 03/25/18 00:50 Urine Color YELLOW Urine Appearance CLEAR (CLEAR) Urine pH 7.5 (4.5-7.5) Urine Specific [place] 1.014 (1.000-1.030) Urine Protein NEG (NEG) Urine Glucose (UA) NEG (NEG) Urine Ketones NEG (NEG) Urine Occult Blood NEG (NEG) Urine Nitrite NEG (NEG) Urine Bilirubin NEG (NEG) Urine Urobilinogen NEG (NEG) Urine Leukocyte Esterase NEG (NEG) White Blood Count 9.49 K/uL (4.8-10.8) Red Blood Count 3.80 M/uL (4.2-5.4) Hemoglobin 12.1 g/dL (12.0-16.0) Hematocrit 34.6 % (37-47) Mean Corpuscular Volume 91.1 fL (80-100) Mean Corpuscular Hemoglobin 31.8 pg (25-34) Mean Corpuscular Hemoglobin Concent 35.0 g/dl (32-36) Platelet Count 304 K/uL (130-400) Mean Platelet Volume 8.7 fL (7.4-10.4) Neutrophils (%) (Auto) 73.7 % Lymphocytes (%) (Auto) 14.6 % Monocytes (%) (Auto) 11.2 % Eosinophils (%) (Auto) 0.2 % Basophils (%) (Auto) 0.1 % Neutrophils # (Auto) 6.99 K/uL (1.4-6.5) Lymphocytes # (Auto) 1.39 K/uL (1.2-3.4) Monocytes # (Auto) 1.06 K/uL (0.11-0.59) Eosinophils # (Auto) 0.02 K/uL (0-0.5) Basophils # (Auto) 0.01 K/uL (0-0.2) RDW Standard Deviation 45.2 fL (36.4-46.3) RDW Coefficient of Variation 13.6 % (11.5-14.5) Immature Granulocyte % (Auto) 0.2 % Immature Granulocyte # (Auto) 0.02 K/uL (0.00-0.02) Anion Gap 8.0 mmol/L (3-11) Est Creatinine Clear Calc Drug Dose 80.7 ml/min Estimated GFR () 97.1 Estimated GFR (Non- 83.8 BUN/Creatinine Ratio 18.0 (10-20) Calcium Level 8.9 mg/dl (8.5-10.1) Total Bilirubin 0.6 mg/dl (0.2-1) Direct Bilirubin mg/dl (0-0.2) Aspartate Amino Transf (AST/SGOT) 43 U/L (15-37) Alanine Aminotransferase (ALT/SGPT) 32 U/L (12-78) Alkaline Phosphatase 103 U/L (45-117) Total Protein 7.5 gm/dl (6.4-8.2) Albumin 3.4 gm/dl (3.4-5.0) Chemistry Specimen Hemolysis Medications Administered Medications (Trade) Dose Ordered Sig/Edmond Route Start Time Stop Time Status Last Admin Dose Admin Morphine Sulfate (MoRPHine SULFATE INJ) 8 mg NOW STAT IM 03/24/18 23:27 03/24/18 23:29 DC 03/24/18 23:45 8 MG Magnesium Citrate (Citrate Of Magnesia Soln) 296 ml NOW ONCE PO 03/25/18 02:15 03/25/18 02:16 DC 03/25/18 02:15 296 ML ED Course Prior records/ancillary studies reviewed. Triage Nursing notes reviewed. Additional history obtained from family The patient's history was concerning for urinary retention and feeling constipated Differential diagnosis: Etiologies such as urinary retention, constipation, diverticulitis, PUD, biliary pathology, UTI, pancreatitis, obstruction, mesenteric ischemia, aortic pathology, infections, inflammatory bowel disease, renal colic, as well as others were entertained. Physical examination findings: As above. ER treatment provided: Bladder scan shows 845 mL's and Hernandez was placed. Patient was given morphine for her pain On reassessment the patient felt better. Diagnostics interpreted by me: The labs revealed urine negative for infection. Stable H&H Improving sodium level per chart review Imaging studies: Chest x-ray and KUB showed no free air or pneumonia or pneumothorax per my interpretation. Patient was unable to do the acute abdominal series secondary to pain. CT ABDOMEN & PELVIS Without Contrast: No hydronephrosis or nephrolithiasis. Extensive stool burden throughout the ascending colon. Descending colon is adherent to the repaired right spigelian hernia, which appears similar to 03/06/18. Stool is seen within the sigmoid colon and rectum without significant impaction. No bowel obstruction or bowel thickening. There is slight stranding within the central mesentery with prominent lymph nodes, which may be seen in the setting of sclerosing mesenteritis, this appears unchanged from 03/06/18. Radiologist: Enrique Osborne MD Exam and history seem consistent with urinary retention constipation most likely from patient's recent surgery. Patient no signs of bowel obstruction. No urine infection. She is well-appearing. She is informed how to use the Hernandez bag and was advised to take the magnesium citrate as directed. She is advised to increase her fluid and fiber intake. She is advised to follow-up with urology or family care in a few days to have the Hernandez removed. She is advised to return to the ER immediately for fevers, pain, Hernandez problems, worsening signs or symptoms or as needed. She was informed to notify her surgeon in the morning about her ER visit. By the evaluation outlined above emergent etiologies such as appendicitis, diverticulitis, PUD, biliary pathology, UTI, pancreatitis, obstruction, mesenteric ischemia, aortic pathology, infections, inflammatory bowel disease, renal colic, as well as others were deemed relatively unlikely. The pt informed about the findings as listed above. All questions were answered and pleased with the treatment. Return instructions were outlined and the patient was discharged in stable condition. Outpatient prescription management: Magnesium citrate Referral: The patient was referred back to their primary care physician/urology and orthopedic spine for follow-up in 2 to 3 days for a recheck of the current condition. Case reviewed with my attending The chart was completed utilizing [employer] voice recognition software. Grammatical errors, random word insertions, pronoun errors, and incomplete sentences are an occassional consequence of this system due to software limitations, ambient noise, and hardware issues. Any formal questions or concerns about the content, text, or information contained within the body of this dictation should be directly addressed to the physician assistant in nursing for clarification. Medical Decision As above Medication Reconcilliation Current Medication List: was personally reviewed by me Blood Pressure Screening Patient's blood pressure: Elevated blood pressure Blood pressure disposition: Referred to PCP Impression Primary Impression: Urinary retention Additional Impression: Constipation Departure Information Dispostion Home / Self-Care Condition GOOD Referrals Valentin Pop M.D. Forms WORK / SCHOOL INSTRUCTIONS, HOME CARE DOCUMENTATION FORM, IMPORTANT VISIT INFORMATION Patient Instructions Constipation, [facility], ED Catheter Care Hernandez Additional Instructions Magnesium citrate: Drink half the bottle when you get up, if you do not have a bowel movement within 6 hours then drink the rest of the bottle. You can mix this with erwin dia 50:50. Stay near the toilet all day. Increase your fluid and fiber intake. Rest and drink plenty of fluids as tolerated. Continue current medications. Avoid strenuous activities and anything that worsens your pain. Resume normal activities once your symptoms resolve. Return to the ER immediately for worsening or persistent abdominal pain, vomiting, fevers, chest pains, difficulty breathing, worsening of your condition , or as needed. Follow up with your primary physician in 2-3 days for a recheck of your current condition. Frequently empty out your Hernandez catheter. Follow-up with family care or urology in 2-3 days for your urinary retention. Call for an appointment. Problem Qualifiers
--- NOTE | 2018-03-25 06:50 | EMERGENCY ROOM VISIT NOTE ---
ED Visit Note First contact with patient: 23:11 I reviewed the patient's past medical history, medications, and visit nursing notes. I discussed the case with the physician metal moulder's assistant, examined the patient, and agree with the findings and plan as documented in the physician assistants note.
--- NOTE | 2018-03-25 07:28 | DIAGNOSTIC IMAGING REPORT ---
KUB CLINICAL HISTORY: 77 years-old Female presenting with NO BM, RECENT OR. TECHNIQUE: Single supine view of the abdomen was obtained. COMPARISON: CT performed the same day and from 03/06/2018. FINDINGS: Cholecystectomy clips noted. Moderate stool burden primarily in the right colon. Nonobstructive bowel gas pattern. No gross pneumoperitoneum. Allowing for bowel gas and stool, no calcifications to suggest nephrolithiasis. Post procedure changes of kyphoplasty at multiple lumbar levels. Significant levocurvature of the lumbar spine with multilevel degenerative changes. Right basilar opacity obscures the right hemidiaphragm. IMPRESSION: 1. Moderate stool burden in the right colon, which could be compatible with constipation. Electronically signed by: Campbell Sommers M.D. 03/25/2018 7:27 AM Dictated Date/Time: 03/25/2018 6:55 AM
--- NOTE | 2018-03-25 07:53 | DIAGNOSTIC IMAGING REPORT ---
CHEST 1 VW FRONT-NOT PORTABLE CLINICAL HISTORY: 77 years-old Female presenting with NO BM, RECENT OR, back surgery yesterday, postoperative pain, unable to urinate. TECHNIQUE: PA view of the chest was obtained. COMPARISON: 01/28/2018. FINDINGS: Atherosclerosis of aortic arch. Cardiac silhouette enlarged. Chronic elevation of the right hemidiaphragm. Bibasilar opacities, bandlike on the left. No new focal opacity. No large effusion or pneumothorax. Degenerative changes of the thoracic spine. Upper abdomen normal. IMPRESSION: 1. Minimal basilar opacities likely atelectasis or scarring. No convincing evidence of acute cardiopulmonary disease. Electronically signed by: Campbell Sommers M.D. 03/25/2018 7:51 AM Dictated Date/Time: 03/25/2018 6:56 AM
--- NOTE | 2018-03-25 07:56 | DIAGNOSTIC IMAGING REPORT ---
CT SCAN OF THE ABDOMEN AND PELVIS WITHOUT IV CONTRAST CLINICAL HISTORY: Generalized abdominal pain. Reported history of recent back surgery. COMPARISON STUDY: Abdominal CT dated 03/06/2018. TECHNIQUE: CT scan of the abdomen and pelvis is performed from the lung bases to the proximal femora. Images are reviewed in the axial, sagittal, and coronal planes. IV contrast was not administered for this examination as per the referring clinician. Note that the examination was performed in significantly suboptimal fashion without oral and IV contrast. A dose lowering technique was utilized adhering to the principles of ALARA. CT DOSE: 1339.48 mGy.cm FINDINGS: Lung bases: The heart is normal in size and without pericardial effusion. There is no airspace consolidation or pleural effusion. There is elevation of both hemidiaphragms with bibasilar scarring/atelectasis. There is a moderate hiatal hernia. A large calcification is noted in the right breast. Liver: The unenhanced liver is normal in size, contour, and attenuation. There is no intrahepatic biliary ductal dilatation. Gallbladder: Surgically absent noting clips in the gallbladder fossa. Spleen: Normal in size and attenuation. Pancreas: The Unenhanced pancreas is mildly atrophic and grossly unremarkable. Adrenal glands: Unremarkable. Kidneys: The unenhanced kidneys demonstrate cortical atrophy and are without hydronephrosis. There are no renal calculi identified. There is no evidence of contour deforming renal mass lesion. Abdominal vasculature: The abdominal aorta is normal in course and caliber noting moderate atherosclerotic calcification. Bowel: Moderate fecal retention is noted in the right colon. No bowel obstruction is seen. The appendix is not identified and reported surgically absent. Peritoneum: There is no intraperitoneal free air or abdominal ascites. There is evidence of previous hernia repair in the right lower quadrant. Lymphadenopathy: None. Pelvic viscera: The bladder is partially decompressed around a Hernandez catheter. The uterus and adnexa are normal as visualized. Skeletal structures: The skeletal structures are osteopenic. There is moderate to advanced lumbosacral spondylosis and scoliosis. No lytic or blastic lesions are seen. There are compression deformities of T12, L1, L2, L3, and L4 with evidence of previous vertebroplasty at L2 and L4. The L1, L2, and L4 compression fractures are likely subacute, and were also seen on 03/06/2018. No large retropulsed fragments are identified. Small foci of gas are present in the central canal. This is nonspecific and likely related to the reported history of recent surgery. Stranding in the paraspinous soft tissues is also likely related to recent surgery. Tiny hematomas are seen in the subcutaneous fat in the lower back on image #107 and measure up to 2.4 cm. IMPRESSION: 1. There are no acute infectious or inflammatory findings in the abdomen or pelvis. 2. There are vertebral compression deformities with evidence of interval vertebroplasty when compared to 03/06/2018 as above. 3. The compression deformities of L1, L2, and L4 are unchanged and likely subacute. No large retropulsed fragment is identified. 4. Postoperative change and tiny subcutaneous hematomas are seen in the paraspinous soft tissues. 5. Additional findings as above. Electronically signed by: Ifeanyi Carnes M.D. 03/25/2018 7:54 AM Dictated Date/Time: 03/25/2018 7:45 AM
== END 2018-03-25 02:45 | disposition home or self-care (01) ==
LOC: C.EDB 22:44 → C.EDC 03-25 02:45
DX: R33.9 Retention of urine, unspecified (principal); K59.00 Constipation, unspecified; Z98.890 Other specified postprocedural states; I10 Essential (primary) hypertension; Z85.3 Personal history of malignant neoplasm of breast; J44.9 Chronic obstructive pulmonary disease, unspecified; K21.9 Gastro-esophageal reflux disease without esophagitis; Z79.82 Long term (current) use of aspirin; Z79.899 Other long term (current) drug therapy

== ENCOUNTER 2018-04-01 22:07 | Emergency (ER) | payer OTHER ==
[~2018-04-01] VITALS: Ht 165.1 cm; Wt 102.0 kg
[~2018-04-01 22:07] MED LIST changes: -ACET-1256 PO; -CALC-393 PO; -CIPR-255 PO; -DIPH25CA5 PO; -ONDA-170 PO; -PHEN-876 PO
[2018-04-01 22:14] VITALS: Ht 165.1 cm; Wt 102.0 kg
[2018-04-01] MEDS ORDERED: ONDANSETRON INJ 2 MG/ML 2 ML VIAL IV STA (22:30)
[2018-04-01] MEDS ORDERED: SODIUM CHLORIDE 0.9% 1000ML 1,000 ML IV STA (22:30)
[2018-04-01] MEDS ORDERED: KETOROLAC TROMETHAMINE 30 MG/ML VIAL IV STA (22:30)
--- NOTE | 2018-04-01 22:46 | EMERGENCY ROOM VISIT NOTE ---
History Report prepared by Dorian: Sandra Eisenberg Under the Supervision of: Dr. Ifeanyi Plasencia M.D. First contact with patient: 22:22 Chief Complaint: ABDOMINAL PAIN Stated Complaint: NAUSEA, ABD PAIN History of Present Illness The patient is a 77 year old female who presents to the Emergency Room with complaints of constant generalized abdominal aching beginning this morning. The patient states she has been dry heaving as well as had a decreased appetite, nausea, and abdominal aching. The patient reports she has been constipated and she has been taking stool softeners. She states she had a bowel movement today. The patient had a Hernandez catheter put in place after having an L2 and L4 Kyphoplasty by Dr. Friend-[facility] on 03/23/18. She was discharged the and came back to the ED on the for constipation and urinary retention- -a catheter was placed. The patient has not had the catheter in for two days. Since the removal of the catheter, she has not been urinating normally. She reports urinary burning for the past two days and states her urinary symptoms are worse today. She was put on Cipro and Zofran today by Dr. Delvalle for the urinary burning. She denies any fever, cough, or new shortness of breath. The patient had a fall about 6 weeks ago where she cracked two vertebrae. She reports having several X-rays and CT scans since her fall. The patient has a history of hyponatremia. She reports she has an appointment tomorrow with Dr. Delvalle. Source of History: patient Onset: this morning Position: abdomen Quality: ache Timing: constant Associated Symptoms: + nausea, + abdominal pain, + urinary symptoms, No fevers, No cough, No SOB Review of Systems See HPI for pertinent positives & negatives. A total of 10 systems reviewed and were otherwise negative. Past Medical & Surgical Medical Problems: (1) Benign hypertension (2) Breast cancer (3) Chronic obstructive lung disease (4) Gastroesophageal reflux disease (5) Leukopenia Surgical Problems: (1) History of appendectomy (2) History of cholecystectomy (3) History of hernia repair (4) History of knee replacement Family History FH: cancer FH: diabetes FH: gallbladder disease FH: heart disease FH: hypertension FH: lung disease Social History Smoking Status: Former Smoker Alcohol Use: occasionally Marital Status: Housing Status: lives with significant other Occupation Status: retired Current/Historical Medications Scheduled Aspirin (Aspirin Ec), 81 MG PO QPM Atenolol (Tenormin), 50 MG PO QAM Calcium Carbonate (Calcium), 1,200 MG PO QAM Ciprofloxacin Hcl (Cipro), 500 MG PO BID Diphenhydramine Hcl (Benadryl), 25 MG PO DIRECTED Levothyroxine Sodium (Levothyroxine Sodium), 25 MCG PO HS Potassium Chloride Microencaps (Potassium Chloride Er), 20 MEQ PO QAM Sertraline (Zoloft), 100 MG PO QAM Simvastatin (Zocor), 20 MG PO QPM Scheduled PRN Acetaminophen (Tylenol), 500 MG PO DIRECTED PRN for Pain or Fever Albuterol Sulfate (Proair Respiclick), 2 PUFFS INH Q4H PRN for SOB/Wheezing Alprazolam (Xanax), 0.5-1 MG PO BID PRN for Anxiety and/or Sedation Fluticasone Propionate (Nasal) (Flonase Allergy Relief), 1 SPRAYS INTNAS BID PRN for RN Hydrocodone/Acetaminophen 10MG/325MG ([place] 10MG/325MG), 1-2 TABS PO Q6H PRN for Pain Hydromorphone Hcl (Dilaudid), 2 MG PO Q4-6H PRN for Pain Ondansetron Hcl (Zofran), 8 MG PO Q8 PRN for Nausea Phenazopyridine HCl (Pyridium), 200 MG PO DIRECTED PRN for Bladder pain Allergies Coded Allergies: Sulfa Antibiotics (Verified Allergy, Severe, GI SYMPTOMS, 04/01/18) Penicillins (Verified Allergy, Intermediate, RASH, 04/01/18) Physical Exam Vital Signs Date Time Temp Pulse Resp B/P (MAP) Pulse Ox O2 Delivery O2 Flow Rate FiO2 04/02/18 00:11 95 20 141/99 94 Room Air 04/01/18 22:14 36.4 96 20 126/74 96 Room Air Physical Exam GENERAL: Patient is in no acute distress. HEENT: No acute trauma, normocephalic atraumatic, mucous membranes moist, no nasal congestion, no scleral icterus. NECK: No stridor, no adenopathy, no meningismus, trachea is midline. LUNGS: Clear to auscultation bilaterally, no wheeze, no rhonchi, breath sounds equal. HEART: Without murmurs gallops or rubs, regular rate and rhythm. ABDOMEN: Mildly diffusely tender. Soft, bowel sounds positive, no hernias, no peritonitis. EXTREMITIES: Mild bilateral pedal edema. No cyanosis, full range of motion of all the joints without pain or difficulty, no signs for acute trauma. NEUROLOGIC: Oriented x 3, no acute motor or sensory deficits, no focal weakness. SKIN: No rash, no jaundice, no diaphoresis. Medical Decision & Procedures ER Provider Diagnostic Interpretation: Radiology results as stated below per my review: Chest X-ray: Bilateral lower lobe consolidations possibly consistent with atelectasis or pneumonia, unchanged from previous x-rays, no CHF. KUB: nonobstructive bowel pattern, no significant constipation. Laboratory Results 04/01/18 22:40 Red Blood Count 3.63, Mean Corpuscular Volume 92.0, Mean Corpuscular Hemoglobin 32.0, Mean Corpuscular Hemoglobin Concent 34.7, Mean Platelet Volume 8.4, Neutrophils (%) (Auto) 74.3, Lymphocytes (%) (Auto) 14.8, Monocytes (%) (Auto) 9.2, Eosinophils (%) (Auto) 1.1, Basophils (%) (Auto) 0.4, Neutrophils # (Auto) 6.05, Lymphocytes # (Auto) 1.21, Monocytes # (Auto) 0.75, Eosinophils # (Auto) 0.09, Basophils # (Auto) 0.03 04/01/18 22:40 Test 04/01/18 22:40 04/01/18 23:00 White Blood Count 8.15 K/uL (4.8-10.8) Red Blood Count 3.63 M/uL (4.2-5.4) Hemoglobin 11.6 g/dL (12.0-16.0) Hematocrit 33.4 % (37-47) Mean Corpuscular Volume 92.0 fL (80-100) Mean Corpuscular Hemoglobin 32.0 pg (25-34) Mean Corpuscular Hemoglobin Concent 34.7 g/dl (32-36) Platelet Count 389 K/uL (130-400) Mean Platelet Volume 8.4 fL (7.4-10.4) Neutrophils (%) (Auto) 74.3 % Lymphocytes (%) (Auto) 14.8 % Monocytes (%) (Auto) 9.2 % Eosinophils (%) (Auto) 1.1 % Basophils (%) (Auto) 0.4 % Neutrophils # (Auto) 6.05 K/uL (1.4-6.5) Lymphocytes # (Auto) 1.21 K/uL (1.2-3.4) Monocytes # (Auto) 0.75 K/uL (0.11-0.59) Eosinophils # (Auto) 0.09 K/uL (0-0.5) Basophils # (Auto) 0.03 K/uL (0-0.2) RDW Standard Deviation 46.8 fL (36.4-46.3) RDW Coefficient of Variation 14.1 % (11.5-14.5) Immature Granulocyte % (Auto) 0.2 % Immature Granulocyte # (Auto) 0.02 K/uL (0.00-0.02) Anion Gap 8.0 mmol/L (3-11) Est Creatinine Clear Calc Drug Dose 80.7 ml/min Estimated GFR () 97.1 Estimated GFR (Non- 83.8 BUN/Creatinine Ratio 9.5 (10-20) Calcium Level 9.0 mg/dl (8.5-10.1) Total Bilirubin 0.6 mg/dl (0.2-1) Aspartate Amino Transf (AST/SGOT) 27 U/L (15-37) Alanine Aminotransferase (ALT/SGPT) 34 U/L (12-78) Alkaline Phosphatase 94 U/L (45-117) Total Protein 7.4 gm/dl (6.4-8.2) Albumin 3.5 gm/dl (3.4-5.0) Globulin 3.9 gm/dl (2.5-4.0) Albumin/Globulin Ratio 0.9 (0.9-2) Lipase 80 U/L (73-393) Thyroid Stimulating Hormone (TSH) 1.530 uIu/ml (0.300-4.500) Free Thyroxine 1.47 ng/dl (0.80-1.60) Urine Color ORANGE Urine Appearance CLOUDY (CLEAR) Urine pH (4.5-7.5) Urine Specific [place] 1.011 (1.000-1.030) Urine Protein NEG (NEG) Urine Glucose (UA) (NEG) Urine Ketones (NEG) Urine Occult Blood (NEG) Urine Nitrite (NEG) Urine Bilirubin (NEG) Urine Urobilinogen (NEG) Urine Leukocyte Esterase (NEG) Urine RBC >30 /hpf (0-4) Urine WBC >30 /hpf (0-5) Urine Epithelial Cells 0-5 /lpf (0-5) Urine Bacteria NEG (NEG) Urine Hyaline Casts 1-5 /lpf (0-5) Laboratory results reviewed by me. Medications Administered Medications (Trade) Dose Ordered Sig/Edmond Route Start Time Stop Time Status Last Admin Dose Admin Ondansetron HCl (Zofran Inj) 4 mg NOW STAT IV 04/01/18 22:30 04/01/18 22:36 DC 04/01/18 22:52 4 MG Sodium Chloride 1,000 ml @ 999 mls/hr Q1H1M STAT IV 04/01/18 22:30 04/01/18 23:30 DC 04/01/18 22:52 999 MLS/HR Ketorolac Tromethamine (Toradol Inj) 15 mg NOW STAT IV 04/01/18 22:30 04/01/18 22:36 DC 04/01/18 22:52 15 MG Ceftriaxone Sodium (Rocephin Inj) 1 gm NOW STAT IV 04/01/18 23:49 04/01/18 23:50 DC 04/02/18 00:02 1 GM Ondansetron HCl (Zofran Inj) 4 mg NOW STAT IV 04/02/18 00:05 04/02/18 00:06 DC 04/02/18 00:08 4 MG ED Course 2223: The patient was evaluated in room A10. A complete history and physical exam was performed. Bladder scan showed 67 CCs with no significant retention. 2230: Ordered Toradol Inj 15 mg IV, Sodium Chloride 1000 ml @ 999 mls/hr IV, Zofran Inj 4 mg IV. 2349: Ordered Rocephin Inj 1 gm IV. 0004: The patient is feeling better and would like to go home. She reports some slight nausea. 0005: Ordered Zofran Inj 4 mg IV. Medical Decision Differential diagnoses include: intestinal colic, dehydration, constipation, pneumonia, UTI, electrolyte imbalance, anemia. There is no leukocytosis or concerning anemia. Sodium is slightly low, the patient has a history of hyponatremia. No kidney failure. No hepatitis or pancreatitis. Urinalysis does suggest infection. Urine culture is pending. Bladder scan showed only 67 cc, no significant retention. KUB does not show evidence for bowel obstruction, no significant constipation. Chest film shows bilateral lower lung consolidations which appear similar to a previous chest film-I favor the consolidations to be atelectasis as the patient has not had cough or fever. The patient received IV saline 1 L. She was given IV Zofran and then a second dose of IV Zofran. She received IV Toradol. She received oral Xanax at her request for some anxiety-she takes Xanax regularly. Patient was given IV ceftriaxone as antibiotic coverage. The patient is not toxic or febrile. She would like to be discharged home. She has a urology appointment tomorrow. She already has a prescription for Cipro, Pyridium and Zofran. She will continue these scripts-she just started the Cipro today. The patient was encouraged to return for any worsening symptoms. She will follow with her doctors as instructed. Medication Reconcilliation Current Medication List: was personally reviewed by me Blood Pressure Screening Patient's blood pressure: Elevated blood pressure Blood pressure disposition: Referred to PCP Impression Primary Impression: UTI (urinary tract infection) Additional Impressions: Dehydration Nausea Scribe Attestation The scribe's documentation has been prepared under my direction and personally reviewed by me in its entirety. I confirm that the note above accurately reflects all work, treatment, procedures, and medical decision making performed by me. Departure Information Dispostion Home / Self-Care Referrals Dee Beyer M.D. (PCP) Forms Call Back Authorization, HOME CARE DOCUMENTATION FORM, IMPORTANT VISIT INFORMATION Patient Instructions My [facility] Additional Instructions see your doctors in follow up as scheduled use the zofran for nausea as prescribed use the cipro for the urine infection as prescribed stay well hydrated use tylenol for pain rest return if worsening or have fever, return if you cannot urinate Problem Qualifiers
[2018-04-01 22:53] LABS: BASO % 0.4 %; BASO ABS # 0.03 K/uL (0-0.2); EOS % 1.1 %; EOS ABS # 0.09 K/uL (0-0.5); HEMATOCRIT 33.4 % (37-47); HEMOGLOBIN 11.6 g/dL (12.0-16.0); IG# 0.02 K/uL (0.00-0.02); LYMPH % 14.8 %; LYMPH ABS # 1.21 K/uL (1.2-3.4); MEAN CORPUSCULAR HGB CONC 34.7 g/dl (32-36); MEAN PLATELET VOLUME 8.4 fL (7.4-10.4); MONO % 9.2 %; MONO ABS # 0.75 K/uL (0.11-0.59); NEUT % 74.3 %; NEUT ABS # 6.05 K/uL (1.4-6.5); PLATELET COUNT 389 K/uL (130-400); RED CELL DISTRIBUTION WIDTH CV 14.1 % (11.5-14.5); RED CELL DISTRIBUTION WIDTH SD 46.8 fL (36.4-46.3); WHITE BLOOD COUNT 8.15 K/uL (4.8-10.8)
[2018-04-01] MEDS ORDERED: PHEN-876 PO (23:10)
[2018-04-01] MEDS ORDERED: ACET-1256 PO (23:10)
[2018-04-01] MEDS ORDERED: DIPH25CA5 PO (23:10)
[2018-04-01] MEDS ORDERED: CIPR-255 PO (23:10)
[2018-04-01] MEDS ORDERED: CALC-393 PO (23:10)
[2018-04-01] MEDS ORDERED: ONDA-170 PO (23:10)
[2018-04-01 23:22] LABS: ALBUMIN 3.5 gm/dl (3.4-5.0); CREATININE 0.68 mg/dl (0.60-1.20); POTASSIUM 3.7 mmol/L (3.5-5.1); TOTAL PROTEIN 7.4 gm/dl (6.4-8.2)
[2018-04-01] MEDS ORDERED: CEFTRIAXONE SOD INJ 1 GM ADDVIAL IV STA (23:49)
[2018-04-02] MEDS ORDERED: ONDANSETRON INJ 2 MG/ML 2 ML VIAL IV STA (00:05)
[2018-04-02] MEDS ORDERED: ALPRAZOLAM 0.5 MG TAB PO STA (00:45)
[2018-04-02 01:46] VITALS: BP 182/89; PULSE 98; TEMP 36.4; O2SAT 96
--- NOTE | 2018-04-02 06:43 | DIAGNOSTIC IMAGING REPORT ---
CHEST ONE VIEW PORTABLE, KUB HISTORY: 77 years-old Female ABDOMINAL PAIN/GI acute generalized abdominal pain with atypical chest pain COMPARISON: Chest radiograph 03/25/2018, CT abdomen and pelvis 03/25/2018. TECHNIQUE: Portable AP view the chest with KUB FINDINGS: CHEST: Cardiac silhouette is again enlarged. Atherosclerosis of the aorta. Development of mild pulmonary vascular congestion with trace left pleural effusion. Linear subsegmental bibasilar opacities. Degenerative changes of the shoulders and spine. KUB: Bowel gas pattern is nonobstructive. Cholecystectomy clips noted. Multiple compression deformities with prior vertebral plasty. Lumbar spine levoscoliosis. Indeterminate transversely oriented lucencies about the right abdomen may be external to the patient. No definite pneumoperitoneum or urolith identified. Surgical clips project over the right lower pelvis. IMPRESSION: 1. Cardiomegaly with mild pulmonary vascular congestion and trace left pleural effusion. 2. Subsegmental bibasilar opacities favor atelectasis. 3. Nonobstructive bowel gas pattern. The above report was generated using voice recognition software. It may contain grammatical, syntax or spelling errors. Electronically signed by: Bertrand Smallwood M.D. 04/02/2018 6:42 AM Dictated Date/Time: 04/02/2018 6:38 AM
== END 2018-04-02 01:46 | disposition home or self-care (01) ==
LOC: C.EDB 22:08 → C.EDA 04-02 01:46
DX: N39.0 Urinary tract infection, site not specified (principal); E86.0 Dehydration; R11.0 Nausea; Z98.890 Other specified postprocedural states; I10 Essential (primary) hypertension; Z85.3 Personal history of malignant neoplasm of breast; J44.9 Chronic obstructive pulmonary disease, unspecified; K21.9 Gastro-esophageal reflux disease without esophagitis; Z90.49 Acquired absence of other specified parts of digestive tract; Z96.659 Presence of unspecified artificial knee joint; Z80.9 Family history of malignant neoplasm, unspecified; Z83.3 Family history of diabetes mellitus; Z82.49 Family history of ischemic heart disease and other diseases of the circulatory system; Z83.79 Family history of other diseases of the digestive system; Z87.891 Personal history of nicotine dependence; Z79.82 Long term (current) use of aspirin; Z79.899 Other long term (current) drug therapy; Z88.2 Allergy status to sulfonamides; Z88.0 Allergy status to penicillin

== ENCOUNTER → 2018-04-01 | Outpatient (CLI) | payer OTHER ==
[~2018-04-01] MED LIST changes: +ACET-1256 PO; +CALC-393 PO; +CIPR-255 PO; +DIPH25CA5 PO; +HYDR-4079 PO; -HYDR-4383 PO; +ONDA-170 PO; +PHEN-876 PO
== END | disposition home or self-care (01) ==
LOC: C.LABPVFM 17:30
PROVIDERS: ATTEND Urology
DX: R33.9 Retention of urine, unspecified (principal)

== ENCOUNTER → 2018-05-29 | Outpatient (CLI) | payer OTHER ==
[~2018-05-29] MED LIST changes: +ACET-1256 PO; +CALC-393 PO; -CALC-51 PO; +CIPR-255 PO; +DIPH25CA5 PO; +ONDA-170 PO; +PHEN-876 PO; -ZOFRAN PO
[2018-05-29 13:04] LABS: ALBUMIN 3.8 gm/dl (3.4-5.0); BLOOD UREA NITROGEN 10 mg/dl (7-18); CALCIUM 9.1 mg/dl (8.5-10.1); CARBON DIOXIDE 22 mmol/L (21-32); CREATININE 0.63 mg/dl (0.60-1.20); GLUCOSE 85 mg/dl (70-99); PHOSPHORUS 3.4 mg/dl (2.5-4.9); POTASSIUM 4.2 mmol/L (3.5-5.1); SODIUM 130 mmol/L (136-145)
== END | disposition home or self-care (01) ==
LOC: C.LABPVFM 07:18
PROVIDERS: ATTEND Nurse Practitioner
DX: E87.1 Hypo-osmolality and hyponatremia (principal)

== ENCOUNTER 2025-05-26 15:07 | Observation (INO) ==
--- NOTE | 2025-05-26 15:28 | Emergency Department Note ---
Impression & Plan Leukopenia, Anemia, Acute hyponatremia ED Provider Note NAME: BRANDEN SOTELO AGE: 84 SEX: F : 1940 ARRIVES VIA: Walk-In INFORMANT: Patient ED PROVIDER(S): Jose Garcia DO CHIEF COMPLAINT: Fall HPI: Patient is an 84-year-old female who presents to the ER with a past medical history of hypertension, hyperlipidemia, hyponatremia for mechanical fall. She notes she was walking in the house last night and did not get her foot up high enough and tripped over the steps and fell onto her right arm. Does not think that she hit her head. Does take aspirin per the who provides additional history. Denies any head or neck pain. Does have some right lower chest wall pain on the back tracking down into the abdomen. She notes her abdomen has been upset and nauseated for the past couple days. Denies any dysuria, urgency, or frequency. No weakness or numbness in the arms or legs. ADDITIONAL HISTORY OBTAINED: provides additional history notes that she chronically wears 1 to 2 L nasal cannula Chronic Medical/Social Conditions Affecting Care: Per HPI PAST MEDICAL HISTORY:See Below PAST SURGICAL HISTORY:See Below FAMILY HISTORY:See Below SOCIAL HISTORY:See Below HOME MEDICATIONS:See Below ALLERGIES:See Below VITALS:See Below PHYSICAL EXAMINATION: GENERAL: Sitting up in bed, alert, well appearing, well nourished, no distress, non-toxic HEAD: NC/AT EYE EXAM: normal conjunctiva. PERRL and EOM's grossly intact. OROPHARYNX: no exudate, no erythema, lips, buccal mucosa, and tongue normal and mucous membranes are moist NECK: supple, no nuchal rigidity, no adenopathy, non-tender LUNGS: Clear to auscultation. Normal chest wall mechanics HEART: no murmurs, S1 normal and S2 normal ABDOMEN: abdomen soft, non-tender, normo-active bowel sounds, no masses, no rebound or guarding. BACK: Back is symmetrical on inspection and there is no deformity, no midline tenderness, no CVA tenderness. SKIN: no rashes and no bruising UPPER EXTREMITIES: Flexion extension of bilateral shoulders elbows wrist and grass intact. Radial pulse 2 out of 4. Bruising over the right forearm. Skin is intact. LOWER EXTREMITIES: Flexion extension bilateral hips knees ankles intact. No tenderness throughout palpation of the femurs, tib-fib's, or feet. NEURO EXAM: Normal sensorium, cranial nerves II-XII grossly intact, normal speech, no gross weakness of arms, no gross weakness of legs. No drift. Finger to nose intact. Gross sensation intact. MEDICAL DECISION MAKING: Patient is an 84-year-old female with a past medical history of SIADH, ESBL, obesity and hyponatremia who presents ER for above-stated complaint. IV was established and blood work was obtained. Labs show no significant leukocytosis and a mild anemia 11.9. BMP with hyponatremia of 126. LFTs bilirubin and lipase was reassuring. CT head, cervical spine and chest and abdomen pelvis showed no acute pathology. X-rays of the forearm and wrist showed no obvious fracture. With the hyponatremia case was discussed with hospitalist for further evaluation management treatment. She was given IV fluids upon arrival. Consults/Care Managements Discussions: Per [facility] Triage Nursing notes reviewed. Limited review of prior medical records performed Vital Signs: reviewed and remarkable for no significant abnormalities Differential diagnosis: Differential diagnoses include major intracranial, cervical, spinal, thoracic, abdominal, pelvic and neurologic injury. Fracture, contusion, sprain, strain, laceration, abrasions included as well. ER treatment provided: See below Diagnostics interpreted by me include EKG and cardiac monitoring as listed below: -Cardiac Monitoring: An order was placed for continuous cardiac monitoring. The monitor shows a rate of 90 with sinus rhythm. -ECG: Sinus rhythm rate 79 Normal axis PVCs QTc 405 -Laboratory studies:Interpreted by me as stated above in MDM and shown below. Imaging studies: Xrays: As interpreted by me: X-ray of the right forearm shows no acute fracture CTs show: CTs of the head, cervical spine, chest abdomen pelvis as described above Procedures:none Critical Care: None Past Med/Surg History Problem List (Updated 05/26/25 @ 21:09 by Jose Garcia DO) Acute hyponatremia (Acute) Anemia (Acute) Leukopenia (Acute) SIADH (syndrome of inappropriate ADH production) History of ESBL E. coli infection UTI (urinary tract infection) Fall Left ankle injury Injury of left foot Leg weakness, bilateral Post-nasal drip Obesity Hypothyroidism (Chronic) Hyponatremia (Chronic) Insomnia (Chronic) Hyperlipidemia (Chronic) Hypertension (Chronic) Restrictive lung disease (Chronic) Osteoporosis (Chronic) Hypoxia (Chronic) Dyspnea on exertion (Chronic) Depression with anxiety (Chronic) Chronic reflux esophagitis (Chronic) Constipation (Chronic) Medical History Anxiety disorder Osteoarthritis Cancer Hearing deficit Lumbar compression fracture Hypernatremia Surgical History History of dilatation and curettage History of back surgery History of total knee replacement History of esophagogastroduodenoscopy (EGD) History of colonoscopy (~2018) History of herniorrhaphy History of cholecystectomy Hx of lumpectomy History of tooth extraction History of cataract surgery History of appendectomy Family History Brother Family history of diabetes mellitus Sister Family hx of colon cancer Breast cancer Colorectal cancer Mother Myocardial infarction Denies family history of Ovarian cancer Prostate cancer Social History Smoking Status: Former smoker Tobacco Type: Cigarettes Age Started Using Tobacco: 17; Age Quit Using Tobacco: 48; packs per day: 0.5; Cigarettes Per Day: QUIT 1988; Second Hand Exposure: No; Do You Dip or Chew Tobacco: No; Hx Alcohol Use: No Hx Substance Use: No Preferred Language: Spanish Communication Ability: Effective Visual Impairment: Limited Hearing Ability: Normal 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 ) Do you think of yourself as: straight/heterosexual Sexual Activity: has been sexually active, but not for at least 12 months Gender Identity: Female Assistive Devices: Cane, Denture - Upper, Denture - Lower, Glasses and Oxygen - Continuous Allergies Allergies Allergy/AdvReac Type Severity Reaction Status Date / Time Sulfa (Sulfonamide Allergy Severe Anaphylaxis Verified 05/26/25 16:35 Antibiotics) Penicillins Allergy Intermediate RASH Verified 05/26/25 16:35 fosfomycin AdvReac Mild Nausea Verified 05/26/25 16:35 Home Meds Home Medications Medication Instructions Recorded Confirmed aspirin 81 mg chewable tablet 81 mg PO QPM 09/28/18 05/26/25 [id number]-[id number]-erifq acid 0.4 1 tab PO DAILY 06/07/19 05/26/25 mg-lycopene 300 mcg-lutein 250 mcg tablet (Centrum Silver) acetaminophen 500 mg tablet 500 mg PO DIRECTED PRN fever or 10/17/19 05/26/25 pain calcium carbonate (Calcium 600) 600 mg PO DAILY 04/25/23 05/26/25 cranberry fruit concentrate 250 mg 250 mg PO TID 10/21/24 05/26/25 chewable tablet (Azo Cranberry) arformoterol 15 mcg/2 mL solution 15 mcg inhalation BID 05/26/25 05/26/25 for nebulization trazodone 50 mg tablet 75 mg PO HS 05/26/25 05/26/25 Previous Rx's Medication Instructions Recorded potassium chloride 20 mEq 20 meq PO DAILY #90 tabs 04/09/24 tablet,extended release lisinopril 10 mg tablet 10 mg PO DAILY #90 tabs 05/10/24 venlafaxine 75 mg capsule,extended 75 mg PO DAILY #90 caps 07/02/24 release 24 hr simvastatin 20 mg tablet 20 mg PO HS #90 tabs 08/30/24 budesonide 1 mg/2 mL suspension 1 mg (2 mL) inhalation BID #120 mL 11/18/24 for nebulization fluticasone propionate 50 2 spray intranasal DAILY #16 grams 12/20/24 mcg/actuation nasal spray,suspension atenolol 50 mg tablet 50 mg PO DAILY #90 tabs 01/11/25 levothyroxine 25 mcg tablet 37.5 mcg (1.5 x 25 mcg) PO DAILY 02/16/25 #135 tabs Results & Data (ED) Vital Signs Vital Signs - 24 hr 05/26/25 15:12 05/26/25 15:24 05/26/25 15:38 Temperature 36.8 C Temperature Source Temporal Artery Scan Pulse Rate 87 84 83 Pulse Rate [Apical] Respiratory Rate 14 Respiratory Effort / Characteristics Respiratory Pattern Blood Pressure 102/84 Blood Pressure [Left Arm] Blood Pressure Mean 90 Blood Pressure Mean [Left Arm] Blood Pressure Position [Left Arm] Pulse Oximetry 93 97 Oxygen Delivery Method Nasal Cannula Nasal Cannula Oxygen Flow Rate 2 2 Sepsis Recent Fever Within 48 Hours No Sepsis New/Unexplained Change in Mental Status N/A Sepsis Action Taken by Nursing No Action Required 05/26/25 18:30 05/26/25 19:00 Temperature Temperature Source Pulse Rate Pulse Rate [Apical] 85 87 Respiratory Rate 20 22 Respiratory Effort / Characteristics Non-Labored Spontaneous Respiratory Pattern Regular Blood Pressure Blood Pressure [Left Arm] 179/97 H 171/87 H Blood Pressure Mean Blood Pressure Mean [Left Arm] 124 115 Blood Pressure Position [Left Arm] Sitting Lying Pulse Oximetry 94 100 Oxygen Delivery Method Nasal Cannula Nasal Cannula Oxygen Flow Rate 2 2 Sepsis Recent Fever Within 48 Hours Sepsis New/Unexplained Change in Mental Status Sepsis Action Taken by Nursing Laboratory Data 05/26/25 15:30 05/26/25 15:30 Lab Results 05/26/25 05/26/25 05/26/25 Range/Units 15:30 15:37 18:00 WBC 4.67 L (4.8-10.8) K/ul RBC 3.73 L (4.20-5.40) M/uL Hgb 11.9 L (12.0-16.0) g/dl POC Hgb 12.6 (12.0-16.0) g/dl Hct 35.4 L (37.0-47.0) % POC Hct 37 (37-47) % MCV 94.9 (80.0-100.0) fL MCH 31.9 (25.0-34.0) pg MCHC 33.6 (32.0-36.0) g/dL RDW Std Deviation 45.1 (36.4-46.3) fL RDW Coeff of Jannie 13.1 (11.5-14.5) % Plt Count 340 (130-400) K/uL MPV 8.9 L (9.4-12.4) fL Immature Gran % (Auto) 0.2 % Neut % (Auto) 52.2 % Lymph % (Auto) 29.1 % Branch % (Auto) 16.1 % Eos % (Auto) 1.3 % Baso % (Auto) 1.1 % Neut # (Auto) 2.44 (1.40-6.50) K/uL Lymph # (Auto) 1.36 (1.20-3.40) K/uL Branch # (Auto) 0.75 H (0.11-0.59) K/uL Eos # (Auto) 0.06 (0.00-0.50) K/uL Baso # (Auto) 0.05 (0.00-0.20) K/uL Immature Gran # (Auto) 0.01 (0.01-0.20) K/uL POC Sodium 127 L (135-144) mmol/L Sodium 126 L (136-145) mmol/L POC Potassium 4.3 (3.3-5.0) mmol/L Potassium 4.2 (3.5-5.1) mmol/L POC Chloride 92 L (101-112) mmol/L Chloride 93 L (98-107) mmol/L Carbon Dioxide 26 (21-32) mmol/L POC Total CO2 24 (24-31) mmol/L Anion Gap 7 (3-11) POC Anion Gap 17.0 (16-25) mmol/L POC BUN 10 (7-18) mg/dl BUN 11 (6-23) mg/dl Creatinine 0.58 L (0.6-1.2) mg/dl POC Creatinine 0.6 (0.6-1.3) mg/dl Est Cr Clr Drug Dosing Not Reportable eGFR 88.63 BUN/Creatinine Ratio 19.0 (10-20) Glucose 85 (70-99(Fasting)) mg/dl POC Glucose (other) 87 (70-99) mg/dl Osmolality 271 L (280-300) mOsm/kg Calcium 9.1 (8.6-10.3) mg/dl POC Ioniz Calcium Carlos 1.13 (1.12-1.32) mmol/l Total Bilirubin 0.4 (0.2-1.0) mg/dl AST 26 (13-39) U/L ALT 20 (7-52) U/L Alkaline Phosphatase 46 (34-104) U/L Total Creatine Kinase 90 (26-192) U/L Total Protein 7.5 (6.0-8.3) gm/dl Albumin 3.8 (3.4-5.0) gm/dl Globulin 3.7 (2.5-4.0) gm/dl Albumin/Globulin Ratio 1.0 (0.9-2) Lipase 21 (11-82) U/L Urine Color Yellow Urine Appearance Clear (Clear) Urine pH 7.0 (4.5-7.5) Ur Specific [place] > 1.045 H (1.000-1.030) Urine Protein Negative (Negative) Urine Glucose (UA) Negative (Negative) Urine Ketones Negative (Negative) Urine Blood Negative (Negative) Urine Nitrite Positive A (Negative) Urine Bilirubin Negative (Negative) Urine Urobilinogen Negative (Negative) Ur Leukocyte Esterase 2+ H (Negative) Urine WBC (Auto) 21-50 H (0-5) /hpf Urine RBC (Auto) 0-2 (0-2) /hpf U Hyaline Cast (Auto) 0-2 (0-2) /lpf U Epithel Cells (Auto) 0-2 (0-2) /hpf Urine Bacteria (Auto) 4+ H (None Seen) Urine Osmolality 463 L (500-800) mOsm/kg Ur Random Sodium 105 mmol/L Urine Comment Administered Medications Discontinued Medications Sodium Chloride (Nss) 500 mls @ 999 mls/hr IV .Q31M ONE Stop: 05/26/25 15:56 Last Infusion: 05/26/25 17:42 Dose: Infused Documented By: Admin: 05/26/25 15:35 Dose: 999 mls/hr Documented By: QGV Ioversol (Optiray 320 100ml) 93 ml IV ONCE ONE Stop: 05/26/25 16:14 Last Admin: 05/26/25 16:13 Dose: 93 ml Documented By: [facility] [employer] Data Radiologist's Impression: Abdomen/Pelvis CT 05/26/25 15:24 CT ABDOMEN and PELVIS with INTRAVENOUS CONTRAST HISTORY: Abdominal pain TECHNIQUE: CT abdomen and pelvis with contrast. IV CONTRAST: 100 mL of OMNIPAQUE 300 ENTERIC CONTRAST: Not Given COMPARISON: CT abdomen pelvis June 06, 2023 FINDINGS: LIVER: No focal lesion identified. GALLBLADDER/BILIARY: Surgically absent gallbladder. No abnormal biliary dilatation. SPLEEN: Unremarkable. PANCREAS: Unremarkable. ADRENALS: Unremarkable. KIDNEYS: Unremarkable. No stones or hydronephrosis identified. PERITONEUM/RETROPERITONEUM. No lymphadenopathy by size criteria. No aortic aneurysm. Moderate atherosclerosis GASTROINTESTINAL: No obstruction. Colonic diverticulosis without evidence of diverticulitis. Moderate sized hiatal hernia. REPRODUCTIVE: Right adnexal cystic structure measuring 1.9 cm. URINARY BLADDER: Unremarkable ABDOMINAL WALL: Previous repair along the right anterior abdominal wall with mesh. No significant hernia defect BONES: Mildly compression fractures of T12 and L1 vertebral bodies without significant retropulsion appear chronic. Chronic compression fractures of L2 and L4 vertebral bodies status post kyphoplasty. IMPRESSION: No evidence of acute trauma to the abdomen or the pelvis. Electronically signed by Stef Ortiz 05-26-2025 5:[address] 05/26/25 15:24 CT CERVICAL SPINE WITHOUT CONTRAST: HISTORY: Trauma TECHNIQUE: Noncontrast CT examination of the cervical spine is performed. Coronal and sagittal reformats were created. COMPARISON: None FINDINGS: CERVICAL SPINE: There is no significant vertebral body height loss. No acute traumatic fracture identified. There is no significant spondylolisthesis. Multilevel degenerative changes characterized by disc osteophyte complex, bilateral facet and uncovertebral hypertrophy resulting and neural foraminal narrowing at multiple levels, worst at mid to lower spine. Visualized soft tissues of neck are unremarkable. IMPRESSION: No acute traumatic fracture of the cervical spine. Multilevel degenerative changes as above Electronically signed by Stef Ortiz 05-26-2025 5:[address] 05/26/25 15:24 CT CHEST WITH CONTRAST: HISTORY: Trauma TECHNIQUE: CT of the chest was obtained with intravenous contrast. Coronal and sagittal reformats were created. IV CONTRAST: 100 mL of OMNIPAQUE 300 COMPARISON: None FINDINGS: LOWER NECK: Subcentimeter thyroid nodules LYMPH NODES: A few small nonenlarged lymph nodes in the mediastinum. No lymphadenopathy by size criteria. CARDIOVASCULAR: Cardiac size is enlarged. Coronary artery and valvular calcifications are noted. No aortic aneurysm. LUNGS: The trachea and central bronchi are widely patent. No focal confluent infiltrates are seen. Multifocal pulmonary scarring. Right middle and lower lobe atelectasis with eventration of the right hemidiaphragm. There are no suspicious pulmonary nodules. PLEURA: There are no pleural effusions. There is no pneumothorax. OSSEOUS STRUCTURES: No acute findings IMPRESSION: No evidence of acute trauma to the thorax. Electronically signed by Stef Ortiz 05-26-2025 5:[address] 05/26/25 15:24 EXAMINATION: Head CT without CLINICAL HISTORY: Lost balance, fell last night PRIORS: None TECHNIQUE: Contiguous axial images were obtained through the head without the use of intravenous contrast. Sagittal and coronal reformations are supplied. FINDINGS: Appropriate parenchymal volume is noted. Solis-white differentiation is preserved. No edema or midline shift. No intra-axial or extra-axial hemorrhage. Ventricles are normal in size and configuration. Brainstem and cerebellum have a normal appearance. Calvarium unremarkable. Paranasal sinuses and mastoid air cells are well-pneumatized. Globes are intact. No retrobulbar abnormality. IMPRESSION: No CT evidence of an acute intracranial abnormality. Electronically signed by Sandy Chavez 05-26-2025 4:37 PM Forearm X-Ray 05/26/25 15:28 XR forearm RT 2V CLINICAL HISTORY: r arm pain s/p fall COMPARISON: None FINDINGS: AP and lateral portable views of the right forearm demonstrates no acute traumatic forearm injury. There is no radial or ulnar fracture identified. There is negative ulnar variance on a developmental basis. There is widening of the scapholunate distance which can be seen in a proximal carpal row ligamentous injury. There are changes of osteoarthritis at the scaphotrapezium joint and the first carpometacarpal joint. IMPRESSION: No acute forearm injury. Possible ligamentous injury proximal carpal row of the wrist. ACT 112: Negative or not required by law. Electronically signed by: Mary Ann Savage M.D. 05/26/2025 3:49 PM Wrist X-Ray 05/26/25 17:44 Clinical History: Pain after fall 4 views of the right wrist are submitted for review. Findings: No fracture or dislocation is seen. There is mild osteoarthritis at the scaphotrapezial trapezoid joint and the thumb carpometacarpal joint. No other osseous abnormality is identified. There are no radiopaque foreign bodies. Impression: 1. No definite fracture 2. Mild osteoarthritis Electronically signed by Kelvin Guerrero 05-26-2025 6:51 PM Discharge Plan Visit Data Chief Complaint: Fall Stated Complaint: FALL LAST NIGHT, BANGED UP RIGHT ARM ED Provider: Jose Garcia Discharge Problem: Leukopenia, Anemia, Acute hyponatremia Condition: Fair Discharge Instructions Interventions: ED Discharge Assessment Last Done: 05/26/25 20:12 Discharge Problem: Leukopenia Qualifiers: Leukopenia type: unspecified Qualified Code(s): D72.819 - Decreased white blood cell count, unspecified Anemia Qualifiers: Anemia type: unspecified type Qualified Code(s): D64.9 - Anemia, unspecified
[2025-05-26] MEDS: SODIUM CHLORIDE 0.9% 500 ML IV ONE (15:35)
[2025-05-26 15:50] LABS: Hematocrit (blood only) 35.4 % (37.0-47.0); Hemoglobin 11.9 g/dl (12.0-16.0); Immature Granulocytes # (auto) 0.01 K/uL (0.01-0.20); Immature Granulocytes % (auto) 0.2 %; Mean Corpuscular Hemoglobin 31.9 pg (25.0-34.0); Mean Corpuscular Volume 94.9 fL (80.0-100.0); Platelet Count 340 K/uL (130-400); RDW Standard Deviation 45.1 fL (36.4-46.3); Red Blood Count 3.73 M/uL (4.20-5.40); White Blood Count 4.67 K/ul (4.8-10.8)
--- NOTE | 2025-05-26 15:51 | XRay Report ---
XR forearm RT 2V CLINICAL HISTORY: r arm pain s/p fall COMPARISON: None FINDINGS: AP and lateral portable views of the right forearm demonstrates no acute traumatic forearm injury. There is no radial or ulnar fracture identified. There is negative ulnar variance on a devel opmental basis. There is widening of the scapholunate distance which can be seen in a proximal carpal row ligamentous injury. There are changes of osteoarthritis at the scaphotrapezium joint and the fir st carpometacarpal joint. IMPRESSION: No acute forearm injury. Possible ligamentous injury proximal carpal row of the wrist. ACT 112: Negative or not required by law. Electronically signed by: Mary Ann Savage M.D. 05/26/2025 3:49 PM
[2025-05-26 16:08] LABS: Alanine Aminotransferase 20 U/L (7-52); Albumin Globulin Ratio 1.0 (0.9-2); Alkaline Phosphatase 46 U/L (34-104); Anion Gap 7 (3-11); Bilirubin,Total 0.4 mg/dl (0.2-1.0); Blood Urea Nitrogen 11 mg/dl (6-23); Calcium 9.1 mg/dl (8.6-10.3); Carbon Dioxide 26 mmol/L (21-32); Chloride 93 mmol/L (98-107); Globulin 3.7 gm/dl (2.5-4.0); Glucose 85 mg/dl (70-99(Fasting)); Lipase 21 U/L (11-82); Potassium 4.2 mmol/L (3.5-5.1); Sodium 126 mmol/L (136-145); Total Protein 7.5 gm/dl (6.0-8.3)
[2025-05-26] MEDS: OPTIRAY 320 100ml IV ONE (16:13)
--- NOTE | 2025-05-26 16:37 | CT Scan Report ---
EXAMINATION: Head CT without CLINICAL HISTORY: Lost balance, fell last night PRIORS: None TECHNIQUE: Contiguous axial images were obtained through the head without the use of intravenous contrast. Sagittal and coronal reformations are supplied. FINDINGS: Appropriate parenchymal volume is noted. Solis-white differentiation is preserved. No edema or midline shift. No intra-axial or extra-axial hemorrhage. Ventricles are normal in size and configuration. Brainstem and cerebellum have a normal appearance. Calvarium unremarkable. Paranasal sinuses and mastoid air cells are well-pneumatized. Globes are intact. No retrobulbar abnormality. IMPRESSION: No CT evidence of an acute intracranial abnormality. Electronically signed by Sandy Chavez 05-26-2025 4:37 PM
--- NOTE | 2025-05-26 17:37 | CT Scan Report ---
CT ABDOMEN and PELVIS with INTRAVENOUS CONTRAST HISTORY: Abdominal pain TECHNIQUE: CT abdomen and pelvis with contrast. IV CONTRAST: 100 mL of OMNIPAQUE 300 ENTERIC CONTRAST: Not Given COMPARISON: CT abdomen pelvis June 06, 2023 FINDINGS: LIVER: No focal lesion identified. GALLBLADDER/BILIARY: Surgically absent gallbladder. No abnormal biliary dilatation. SPLEEN: Unremarkable. PANCREAS: Unremarkable. ADRENALS: Unremarkable. KIDNEYS: Unremarkable. No stones or hydronephrosis identified. PERITONEUM/RETROPERITONEUM. No lymphadenopathy by size criteria. No aortic aneurysm. Moderate atherosclerosis GASTROINTESTINAL: No obstruction. Colonic diverticulosis without evidence of diverticulitis. Moderate sized hiatal hernia. REPRODUCTIVE: Right adnexal cystic structure measuring 1.9 cm. URINARY BLADDER: Unremarkable ABDOMINAL WALL: Previous repair along the right anterior abdominal wall with mesh. No significant hernia defect BONES: Mildly compression fractures of T12 and L1 vertebral bodies without significant retropulsion appear chronic. Chronic compression fractures of L2 and L4 vertebral bodies status post kyphoplasty. IMPRESSION: No evidence of acute trauma to the abdomen or the pelvis. Electronically signed by Stef Ortiz 05-26-2025 5:37 PM
--- NOTE | 2025-05-26 17:37 | CT Scan Report ---
CT CERVICAL SPINE WITHOUT CONTRAST: HISTORY: Trauma TECHNIQUE: Noncontrast CT examination of the cervical spine is performed. Coronal and sagittal reformats were created. COMPARISON: None FINDINGS: CERVICAL SPINE: There is no significant vertebral body height loss. No acute traumatic fracture identified. There is no significant spondylolisthesis. Multilevel degenerative changes characterized by disc osteophyte complex, bilateral facet and uncovertebral hypertrophy resulting and neural foraminal narrowing at multiple levels, worst at mid to lower spine. Visualized soft tissues of neck are unremarkable. IMPRESSION: No acute traumatic fracture of the cervical spine. Multilevel degenerative changes as above Electronically signed by Stef Ortiz 05-26-2025 5:37 PM
--- NOTE | 2025-05-26 17:37 | CT Scan Report ---
CT CHEST WITH CONTRAST: HISTORY: Trauma TECHNIQUE: CT of the chest was obtained with intravenous contrast. Coronal and sagittal reformats were created. IV CONTRAST: 100 mL of OMNIPAQUE 300 COMPARISON: None FINDINGS: LOWER NECK: Subcentimeter thyroid nodules LYMPH NODES: A few small nonenlarged lymph nodes in the mediastinum. No lymphadenopathy by size criteria. CARDIOVASCULAR: Cardiac size is enlarged. Coronary artery and valvular calcifications are noted. No aortic aneurysm. LUNGS: The trachea and central bronchi are widely patent. No focal confluent infiltrates are seen. Multifocal pulmonary scarring. Right middle and lower lobe atelectasis with eventration of the right hemidiaphragm. There are no suspicious pulmonary nodules. PLEURA: There are no pleural effusions. There is no pneumothorax. OSSEOUS STRUCTURES: No acute findings IMPRESSION: No evidence of acute trauma to the thorax. Electronically signed by Stef Ortiz 05-26-2025 5:37 PM
--- NOTE | 2025-05-26 17:56 | History & Physical Report ---
Date of Service May 26, 2025 Assessment & Plan (1) Fall: (2) Hyponatremia: (3) UTI (urinary tract infection): (4) History of ESBL E. coli infection: (5) SIADH (syndrome of inappropriate ADH production): Plan This patient is an 84-year-old female who presented on 05/26 after sustaining a ground-level fall. #Fall No head strike; no LOC; on aspirin Patient ambulates with a cane at baseline Imaging negative for acute fractures on arrival However, right forearm x-ray did reveal a possible ligamentous injury to the proximal carpal row of the wrist PT/OT evaluations appreciated Fall precautions #Hyponatremia | Suspected SIADH Na 126 on arrival; euvolemic on arrival Urine osm, urine sodium, serum osm, pending Per review of prior nephrology notes, clinical presentation and prior evaluations were consistent with SIADH Hold trazodone as potential cause of SIADH Will plan to continue venlafaxine for now Fluid restriction at 1200mL Initiate sodium tablets 1000 mg p.o. BID Trend BMP AM TSH (WNL in Nov 2024) #UTI UA with 4+ bacteria on arrival Patient endorses burning with urination H/o ESBL E.coli on prior UCx with significant resistance Has also grown Klebsiella, Proteus, Citrobacter Contact isolation precautions Continue Azo TID Ertapenem 1000 mg IV q24h Pending urine culture, potential discharge on fosfomycin Note: Patient does have a listed fosfomycin allergy (nausea); ?Could potentially take concomitantly with Pepcid or Zofran Disposition: Admit to MedSurg VTE PPx: Teds History of Present Illness Chief Complaint: Fall Primary Care Provider: HASMUKH Ortiz Mr. Mcfadden is an 84-year-old female with PMH of hypothyroidism, osteoporosis, restrictive lung disease, depression, breast cancer, HTN, and HLD. She presented on 05/26 after sustaining a ground-level fall the night prior. Patient reports it was raining last night when she and her got home. She was walking up to 4-5 steps into this at her house, when she lost her balance. Her tried to help her, but she could not get her foot over the last step, and she fell. No head strike. No LOC. She does take a baby aspirin nightly, but is unsure why she takes this. Patient took her regular morning medicine today. No recent change in medications. She does have a history of low sodium and potassium in the past. While she reports no recent change in diet, she has been feeling "sick to [her] stomach" the past couple days, and has not been eat ing much. She also endorses nausea, but no vomiting. Patient uses supplemental oxygen at night, and during the day as needed. Former tobacco smoker; quit in 1988. Patient endorses intermittent burning with urination; history of renal UTIs. She also reports that she has fecal incontinence at baseline; this has been ongoing for extended period time; wears diaper briefs at home. She denies any recent alcohol use. She ambulates with a cane at baseline. Patient's SpO2 is 97% on 2L NC on arrival; vitals otherwise stable. ED Course: NSS 500 mL IV ROS: Patient endorses BOWMAN (chronic), dry cough, abdominal cramping, nausea, diarrhea, and intermittent burning with urination. Patient denies fever, chills, night-sweats, dizziness, lightheadedness, chest pain, vomiting, dry heaves, or blood in the urine/stool. Allergies Allergy/AdvReac Type Severity Reaction Status Date / Time Sulfa (Sulfonamide Allergy Severe Anaphylaxis Verified 05/26/25 16:35 Antibiotics) Penicillins Allergy Intermediate RASH Verified 05/26/25 16:35 fosfomycin AdvReac Mild Nausea Verified 05/26/25 16:35 Home Medications Medication Instructions Recorded Confirmed Type aspirin 81 mg chewable tablet 81 mg PO QPM 09/28/18 05/26/25 History ubndwxrj-gdr-vkuan acid 0.4 1 tab PO DAILY 06/07/19 05/26/25 History mg-lycopene 300 mcg-lutein 250 mcg tablet (Centrum Silver) acetaminophen 500 mg tablet 500 mg PO DIRECTED PRN fever or 10/17/19 05/26/25 History pain calcium carbonate (Calcium 600) 600 mg PO DAILY 04/25/23 05/26/25 History potassium chloride 20 mEq 20 meq PO DAILY #90 tabs 04/09/24 05/26/25 Rx tablet,extended release lisinopril 10 mg tablet 10 mg PO DAILY #90 tabs 05/10/24 05/26/25 Rx venlafaxine 75 mg capsule,extended 75 mg PO DAILY #90 caps 07/02/24 05/26/25 Rx release 24 hr simvastatin 20 mg tablet 20 mg PO HS #90 tabs 08/30/24 05/26/25 Rx cranberry fruit concentrate 250 mg 250 mg PO TID 10/21/24 05/26/25 History chewable tablet (Azo Cranberry) budesonide 1 mg/2 mL suspension 1 mg (2 mL) inhalation BID #120 mL 11/18/24 05/26/25 Rx for nebulization fluticasone propionate 50 2 spray intranasal DAILY #16 grams 12/20/24 05/26/25 Rx mcg/actuation nasal spray,suspension atenolol 50 mg tablet 50 mg PO DAILY #90 tabs 01/11/25 05/26/25 Rx levothyroxine 25 mcg tablet 37.5 mcg (1.5 x 25 mcg) PO DAILY 02/16/25 05/26/25 Rx #135 tabs arformoterol 15 mcg/2 mL solution 15 mcg inhalation BID 05/26/25 05/26/25 History for nebulization trazodone 50 mg tablet 75 mg PO HS 05/26/25 05/26/25 History Past Med/Surg History Problem List (Updated 05/26/25 @ 21:09 by Jose Garcia DO) Acute hyponatremia (Acute) Anemia (Acute) Leukopenia (Acute) SIADH (syndrome of inappropriate ADH production) History of ESBL E. coli infection UTI (urinary tract infection) Fall Left ankle injury Injury of left foot Leg weakness, bilateral Post-nasal drip Obesity Hypothyroidism (Chronic) Hyponatremia (Chronic) Insomnia (Chronic) Hyperlipidemia (Chronic) Hypertension (Chronic) Restrictive lung disease (Chronic) Osteoporosis (Chronic) Hypoxia (Chronic) Dyspnea on exertion (Chronic) Depression with anxiety (Chronic) Chronic reflux esophagitis (Chronic) Constipation (Chronic) Medical History Anxiety disorder Osteoarthritis Cancer Hearing deficit Lumbar compression fracture Hypernatremia Surgical History History of dilatation and curettage History of back surgery History of total knee replacement History of esophagogastroduodenoscopy (EGD) History of colonoscopy (~2018) History of herniorrhaphy History of cholecystectomy Hx of lumpectomy History of tooth extraction History of cataract surgery History of appendectomy Family History Brother Family history of diabetes mellitus Sister Family hx of colon cancer Breast cancer Colorectal cancer Mother Myocardial infarction Denies family history of Ovarian cancer Prostate cancer Social History Smoking Status: Former smoker Tobacco Type: Cigarettes Age Started Using Tobacco: 17; Age Quit Using Tobacco: 48; packs per day: 0.5; Cigarettes Per Day: QUIT 1988; Second Hand Exposure: No; Do You Dip or Chew Tobacco: No; Hx Alcohol Use: No Hx Substance Use: No Preferred Language: [place]ian Communication Ability: Effective Visual Impairment: Limited Hearing Ability: Normal Clinical Specialist Vascular Required: No Beliefs That Will Affect Care: None marital status: Current Living Situation: Spouse current occupational status: retired How many Children do You have: 3 Feels Safe at Home: Yes Childhood Exposure to Second-Hand Smoke: Yes Diet: regular caffeine: No during the past year weight has: remained stable Dental Care, Regularly: No Physical Activity Frequency: Does not Exercise Seatbelt Use: always Sunscreen Use: No (Sometimes. ) Do you think of yourself as: straight/heterosexual Sexual Activity: has been sexually active, but not for at least 12 months Gender Identity: Female Assistive Devices: Cane, Denture - Upper, Denture - Lower, Glasses, Oxygen - at Night and Walker Review of Systems Review of Systems: See HPI above Physical Exam Physical Exam: General: no acute distress; at bedside; non-toxic appearing; frail appearing; SpO2 94% on 2L NC HEENT: normocephalic, atraumatic; no scleral icterus; PERRLA; vision and hearing intact Neck: supple; no lymphadenopathy; trachea midline Skin: warm, dry without signs of tenting; no cyanosis; no rashes, bruising, lesions, or erythema noted CV: chest wall NTP; RRR; S1/S2 normal; no murmurs/rubs/gallops; pulses intact and symmetric at radial, DP, and PT Lungs: Patient exhibits mildly labored breathing at baseline; symmetrical chest wall expansion; clear breath sounds across all lung mai w/o adventitious sounds; no wheezing ABD: Soft, NTP; BS present; no rebound/guarding; no distention MSK: no tics or fasciculations; nonpitting edema noted in the LEs b/l, nonerythematous; patient demonstrates the ability to wiggle toes bilaterally; 4/5 strength when lifting legs bilaterally; she does report that her legs are TTP Neuro: A&Ox3; normal mood and affect; fluent speech; no focal deficits appreciated; sensation intact and symmetric in lower extremity bilaterally Results & Data Results & Data Vital Signs (Past 12 Hours) Vital Signs Temp Pulse Resp BP Pulse Ox O2 Del Method O2 Flow Rate 05/26/25 15:38 83 05/26/25 15:24 84 97 Nasal Cannula 2 05/26/25 15:12 36.8 C 87 14 102/84 93 Nasal Cannula 2 Laboratory Results Abnormal lab results 05/26/25 05/26/25 Range/Units 15:30 15:37 WBC 4.67 L (4.8-10.8) K/ul RBC 3.73 L (4.20-5.40) M/uL Hgb 11.9 L (12.0-16.0) g/dl Hct 35.4 L (37.0-47.0) % MPV 8.9 L (9.4-12.4) fL [place] # (Auto) 0.75 H (0.11-0.59) K/uL POC Sodium 127 L (135-144) mmol/L Sodium 126 L (136-145) mmol/L POC Chloride 92 L (101-112) mmol/L Chloride 93 L (98-107) mmol/L Creatinine 0.58 L (0.6-1.2) mg/dl Diagnostic Findings Abdomen/Pelvis CT 05/26/25 15:24 CT ABDOMEN and PELVIS with INTRAVENOUS CONTRAST HISTORY: Abdominal pain TECHNIQUE: CT abdomen and pelvis with contrast. IV CONTRAST: 100 mL of OMNIPAQUE 300 ENTERIC CONTRAST: Not Given COMPARISON: CT abdomen pelvis June 06, 2023 FINDINGS: LIVER: No focal lesion identified. GALLBLADDER/BILIARY: Surgically absent gallbladder. No abnormal biliary dilatation. SPLEEN: Unremarkable. PANCREAS: Unremarkable. ADRENALS: Unremarkable. KIDNEYS: Unremarkable. No stones or hydronephrosis identified. PERITONEUM/RETROPERITONEUM. No lymphadenopathy by size criteria. No aortic aneurysm. Moderate atherosclerosis GASTROINTESTINAL: No obstruction. Colonic diverticulosis without evidence of diverticulitis. Moderate sized hiatal hernia. REPRODUCTIVE: Right adnexal cystic structure measuring 1.9 cm. URINARY BLADDER: Unremarkable ABDOMINAL WALL: Previous repair along the right anterior abdominal wall with mesh. No significant hernia defect BONES: Mildly compression fractures of T12 and L1 vertebral bodies without significant retropulsion appear chronic. Chronic compression fractures of L2 and L4 vertebral bodies status post kyphoplasty. IMPRESSION: No evidence of acute trauma to the abdomen or the pelvis. Electronically signed by Stef Ortiz 05-26-2025 5:[address] 05/26/25 15:24 CT CERVICAL SPINE WITHOUT CONTRAST: HISTORY: Trauma TECHNIQUE: Noncontrast CT examination of the cervical spine is performed. Coronal and sagittal reformats were created. COMPARISON: None FINDINGS: CERVICAL SPINE: There is no significant vertebral body height loss. No acute traumatic fracture identified. There is no significant spondylolisthesis. Multilevel degenerative changes characterized by disc osteophyte complex, bilateral facet and uncovertebral hypertrophy resulting and neural foraminal narrowing at multiple levels, worst at mid to lower spine. Visualized soft tissues of neck are unremarkable. IMPRESSION: No acute traumatic fracture of the cervical spine. Multilevel degenerative changes as above Electronically signed by Stef Ortiz 05-26-2025 5:[address] 05/26/25 15:24 CT CHEST WITH CONTRAST: HISTORY: Trauma TECHNIQUE: CT of the chest was obtained with intravenous contrast. Coronal and sagittal reformats were created. IV CONTRAST: 100 mL of OMNIPAQUE 300 COMPARISON: None FINDINGS: LOWER NECK: Subcentimeter thyroid nodules LYMPH NODES: A few small nonenlarged lymph nodes in the mediastinum. No lymphadenopathy by size criteria. CARDIOVASCULAR: Cardiac size is enlarged. Coronary artery and valvular calcifications are noted. No aortic aneurysm. LUNGS: The trachea and central bronchi are widely patent. No focal confluent infiltrates are seen. Multifocal pulmonary scarring. Right middle and lower lobe atelectasis with eventration of the right hemidiaphragm. There are no suspicious pulmonary nodules. PLEURA: There are no pleural effusions. There is no pneumothorax. OSSEOUS STRUCTURES: No acute findings IMPRESSION: No evidence of acute trauma to the thorax. Electronically signed by Stef Ortiz 05-26-2025 5:[address] 05/26/25 15:24 EXAMINATION: Head CT without CLINICAL HISTORY: Lost balance, fell last night PRIORS: None TECHNIQUE: Contiguous axial images were obtained through the head without the use of intravenous contrast. Sagittal and coronal reformations are supplied. FINDINGS: Appropriate parenchymal volume is noted. Solis-white differentiation is preserved. No edema or midline shift. No intra-axial or extra-axial hemorrhage. Ventricles are normal in size and configuration. Brainstem and cerebellum have a normal appearance. Calvarium unremarkable. Paranasal sinuses and mastoid air cells are well-pneumatized. Globes are intact. No retrobulbar abnormality. IMPRESSION: No CT evidence of an acute intracranial abnormality. Electronically signed by Sandy Chavez 05-26-2025 4:37 PM Forearm X-Ray 05/26/25 15:28 XR forearm RT 2V CLINICAL HISTORY: r arm pain s/p fall COMPARISON: None FINDINGS: AP and lateral portable views of the right forearm demonstrates no acute traumatic forearm injury. There is no radial or ulnar fracture identified. There is negative ulnar variance on a developmental basis. There is widening of the scapholunate distance which can be seen in a proximal carpal row ligamentous injury. There are changes of osteoarthritis at the scaphotrapezium joint and the first carpometacarpal joint. IMPRESSION: No acute forearm injury. Possible ligamentous injury proximal carpal row of the wrist. ACT 112: Negative or not required by law. Electronically signed by: Mary Ann Savage M.D. 05/26/2025 3:49 PM Code Status & VTE Plan Code Status Full code VTE Prophylaxis Plan VTE Prophylaxis will be ordered: Yes Supervising Physician Co-Signing Physician Notes Attending Attestation & Admit Note: Pt seen/examined, chart reviewed, admit care plan d/w MEERA Marina. I agree w/ the mendoza components of his admission documentation with the following additions: -morbid obesity, BMI 40 -chronic hypoxic respiratory failure on home O2 -severe restrictive lung disease based on recent outpatient PFTs 84yo female with chronic hyponatremia - previous evaluations c/w SIADH, recurrent UTIs, restrictive lung disease, chronic hypoxic resp failure on NC O2 (wears nightly and often times during the daytime as well), morbid obesity, urinary/fecal incontinence. Presents after having had a fall yesterday at her home. She simply could not get her leg above the last step on a flight of stairs leading to loss of balance and a fall. During my assessment she is most sore in the right arm. Denies right wrist pain. She endorses chronic arthritis in various locations - both shoulders, left hand/wrist, hips, left knee, etc. In addition, she has had "an upset stomach" for several days as well as dysuria with poor appetite. PMH/PSH/allergies/meds/sochx - reviewed VSS, afebrile gen - lying in bed comfortably, awake/alert neck - no JVD mouth - MMM heart - RRR, s1 s2, no murmur lungs - CTA b/l, fine crackles R base only abd - soft NT ND BS+ musculo - bruise R shoulder; mild restricted passive ROM with shoulder pain with external rotation; large bruise medial aspect of upper right arm; right elbow with full ROM; right wrist - nontender to palpation of any of the carpal bones; right hip with restricted passive ROM; large right knee scar with no signs of trauma; OA changes L knee; bruise on right foot ext - pulses b/l feet 2+; trace edema b/l legs labs reviewed extensive imaging reviewed A/P: 1. accidental fall 2. likely UTI - agree with IV ertapenem given past ESBL e.coli UTIs 3. abdominal upset of several days - due to #2? 4. ecchymoses and contusions - mainly right arm - 2nd to fall; obtain x-rays of right shoulder due to bruising in that location and pain with passive ROM 5. chronic hypoxic resp failure on home O2 - 2nd to restrictive lung disease 6. morbid obesity 7. acute/chronic hyponatremia 2nd SIADH - looks euvolemic on exam today; agree w/ fluid restriction, salt tabs, and BMP am; doubt this is main contributor of #1 family updated at bedside Hubert Cardona MD PG Care Time/CCT Total # of Minutes Spent Total Time Spent with Patient: Total time spent is greater than 50% in coordination of care (as documented) at patient's floor/unit and/or counseling patient: C[place] [address] INT INP/OBS CARE 3/75MIN Patient Type Established Medical Decision Making High Complexity Diagnoses Fall W19.XXXA Hyponatremia E87.1 UTI (urinary tract infection) N39.0 History of ESBL E. coli infection Z86.19 SIADH (syndrome of inappropriate ADH production) E22.2
[2025-05-26 18:28] LABS: Appearance Urine Clear (Clear); Bacteria Urine Automated 4+ (None Seen); Cast Urine Automated 0-2 /lpf (0-2); Epithelial Cell Urine Auto 0-2 /hpf (0-2); Glucose Urine UA Negative (Negative); RBC Urine Automated 0-2 /hpf (0-2); WBC Urine Automated 21-50 /hpf (0-5)
--- NOTE | 2025-05-26 18:53 | XRay Report ---
Clinical History: Pain after fall 4 views of the right wrist are submitted for review. Findings: No fracture or dislocation is seen. There is mild osteoarthritis at the scaphotrapezial trapezoid joint and the thumb carpometacarpal joint. No other osseous abnormality is identified. There are no radiopaque foreign bodies. Impression: 1. No definite fracture 2. Mild osteoarthritis Electronically signed by Kelvin Guerrero 05-26-2025 6:51 PM
[2025-05-26] MEDS ORDERED: ERTAPENEM 1000MG 1,000 MG/10 ML SYR IV STA (19:49)
[2025-05-26 20:33] LABS: Creatine Kinase 90 U/L (26-192)
[2025-05-26] MEDS ORDERED: MELATONIN 3 MG TAB PO PRN (21:04)
[2025-05-26] MEDS ORDERED: FORMOTEROL 20 MCG/2 ML VIAL INH SCH (21:15)
[2025-05-26] MEDS: ASPIRIN 81 MG CHEW PO SCH (21:43)
[2025-05-26] MEDS: ACETAMINOPHEN 500 MG TAB PO SCH (21:43)
[2025-05-26] MEDS: SIMVASTATIN 20 MG TAB PO SCH (21:44)
[2025-05-26] MEDS: SODIUM CHLORIDE 1 GM TABLET PO SCH (21:45)
[2025-05-26] MEDS: ERTAPENEM 1000MG 1,000 MG/10 ML SYR IV SCH (21:45)
[2025-05-26] MEDS: BUDESONIDE 0.5 MG/2 ML VIAL (PULMICORT) INH SCH (22:53)
[2025-05-26] MEDS: FORMOTEROL 20 MCG/2 ML VIAL INH SCH (22:54)
--- NOTE | 2025-05-26 23:41 | XRay Report ---
Exam(s): XR SHOULDER, 2+ views EXAM: XR Right Shoulder Complete, 2 or More Views CLINICAL HISTORY: recent fall, bruise, pain with ROM. TECHNIQUE: Two or more views of the right shoulder. COMPARISON: No relevant prior studies available. FINDINGS: Bones/joints: Incidental chronic degenerative hypertrophic changes involving the acromioclavicular joint. No acute osseous abnormality. No abnormal alignment. Soft tissues: Unremarkable. IMPRESSION: No acute findings involving the right shoulder. Electronically signed by: Jevon Jim MD 05/26/25 23:41 PM
[2025-05-27] MEDS: LEVOTHYROXINE SODIUM 25 MCG TABLET PO SCH (05:11)
[2025-05-27 06:38] LABS: Hematocrit (blood only) 32.8 % (37.0-47.0); Hemoglobin 11.3 g/dl (12.0-16.0); Mean Corpuscular Hemoglobin 32.8 pg (25.0-34.0); Mean Corpuscular Volume 95.3 fL (80.0-100.0); Platelet Count 296 K/uL (130-400); RDW Standard Deviation 45.6 fL (36.4-46.3); Red Blood Count 3.44 M/uL (4.20-5.40); White Blood Count 4.05 K/ul (4.8-10.8)
[2025-05-27 07:01] LABS: Anion Gap 6.0 (3-11); Blood Urea Nitrogen 9.0 mg/dl (6-23); Calcium 8.3 mg/dl (8.6-10.3); Carbon Dioxide 27.0 mmol/L (21-32); Chloride 95.0 mmol/L (98-107); Creatinine Clr Calc Pharmacy 73.7 ml/min; Glucose 92.0 mg/dl (70-99(Fasting)); Magnesium 1.6 mg/dl (1.7-2.4); Potassium 4.1 mmol/L (3.5-5.1); Sodium 128.0 mmol/L (136-145)
[2025-05-27] MEDS: POTASSIUM CHLORIDE CRTAB 20 MEQ TABCR PO SCH (09:18)
[2025-05-27] MEDS: FLUTICASONE PROPIONATE NA SPR 16 GM BTL SCH (09:19)
[2025-05-27] MEDS: MAGNESIUM SULFATE / D5W 1 GM/100 ML BAG IV SCH (09:20)
[2025-05-27] MEDS: ATENOLOL 50 MG TABLET PO SCH (09:25)
[2025-05-27] MEDS: VENLAFAXINE HCL XR 75 MG CAPXR PO SCH (09:26)
--- NOTE | 2025-05-27 20:34 | Hospitalist Progress Note ---
Date of Service May 27, 2025 Assessment & Plan (1) Fall: (2) Hyponatremia: (3) UTI (urinary tract infection): (4) History of ESBL E. coli infection: (5) SIADH (syndrome of inappropriate ADH production): (6) Chronic hypoxic respiratory failure: (7) Restrictive lung disease: (8) Morbid obesity with BMI of 40.0-44.9, adult: (9) Chronic reflux esophagitis: Plan 84yo female who presented on 05/26 after sustaining a ground-level fall the previous evening on 05/25. Fortunately no fractures in any location despite the fall. Several days of poor appetite and dyspepsia/stomach upset possibly due to UTI. #Fall - -accidental, simply lost balance on while ascending steps -no dizziness, no presyncope, no focal weakness, no loss of consciousness -check a B12 level while here -treat UTI -treating low Na -PT/OT evals appreciated; cleared for home at d/c #Acute/chronic Hyponatremia 2nd SIADH - -presenting Na level 126; baseline upper 120s to low 130s -appeared to be asymptomatic from the hyponatremia -improved today to 128 with salt tabs & fluid restriction -urine osm, urine Na, serum osm all c/w SIADH -not sure if patient is following fluid restriction at home -previously followed by Dr Falcon for this issue -cause of SIADH? psychotropic meds? -repeat BMP am -lower salt tab supplementation to 1gm/day -cont 1200cc fluid restriction #mild hypomagnesemia - -2 grams mag sulfate IV x 1 -repeat mag level am #UTI 2nd to e.coli - -has had ESBL e.coli in past thus cont Ertapenem IV until final cx results return -seems clinically improved today #h/o GERD - -PPI #chronic hypoxic resp failure on home o2 - -consider formal 2-step before d/c -only uses the NC O2 during the daytime "some times"; uses faithfully at nighttime #morbid obesity - -BMI 40 #fecal incontinence - -check KUB in am tomorrow -does she have constipation with fecal overflow from such? #urinary incontinence - -chronic -discussed time voids, double voids, etc -discussed use of adult diapers - this can make UTI risk higher -consider outpatient urology consult -nothing on CT a/p from anatomic standpoint that could be contributing #hypothyroidism - -TSH wnl -cont synthroid dispo - home UTI results will dictate the rest of her stay; if ESBL ecoli is pathogen then she will need IV ertapenem for up to 7 days patient aware left message for pt's on his voicemail this evening Admission and Anticipated Discharge Date Admission Date: May 26, 2025 Subjective no events overnight overall feels well stomach upset resolved lengthy discussion about her urinary & fecal incontinence issues wears adult diapers regularly during the daytime fecal incontinence is really a fecal urgency breathing - near baseline eating well PT/OT evaluated and she can return home at discharge Review of Systems Review of Systems: gen - feels well cv - no cp pulm - mild dyspnea but at baseline GI - no N/V today musculo - sore in various locations but no worse than yesterday Physical Exam Physical Exam: gen - lying in bed comfortably, awake/alert, eating her meal neck - no JVD mouth - MMM heart - RRR, s1 s2, no murmur lungs - CTA b/l, fine crackles both bases with decreased BS both bases abd - soft NT ND BS+ ext - pulses b/l feet 2+; trace edema b/l legs and feet Results & Data Results & Data Vital Signs (Past 12 Hours) Vital Signs Temp Pulse Resp BP Pulse Ox Pulse Ox O2 Del Method 05/27/25 19:58 Nasal Cannula 05/27/25 19:54 36.7 C 79 20 153/77 H 92 Nasal Cannula 05/27/25 19:27 80 18 94 Nasal Cannula 05/27/25 12:58 36.5 C 70 16 179/83 H 98 Nasal Cannula 05/27/25 12:22 92 05/27/25 09:30 89 156/77 H O2 Flow Rate O2 Flow Rate 05/27/25 19:58 2 05/27/25 19:54 2 05/27/25 19:27 2 05/27/25 12:58 2 05/27/25 12:22 2 05/27/25 09:30 Laboratory Results Laboratory Results - last 24 hr 05/27/25 06:06 WBC 4.05 L RBC 3.44 L Hgb 11.3 L Hct 32.8 L MCV 95.3 MCH 32.8 MCHC 34.5 RDW Std Deviation 45.6 RDW Coeff of Jannie 12.9 Plt Count 296 MPV 9.1 L Sodium 128 L Potassium 4.1 Chloride 95 L Carbon Dioxide 27 Anion Gap 6 BUN 9 Creatinine 0.64 Est Cr Clr Drug Dosing 73.7 eGFR 86.55 BUN/Creatinine Ratio 14.1 Glucose 92 Calcium 8.3 L Magnesium 1.6 L TSH 2.340 Microbiology 05/26/25 18:00 Urine,Clean Catch Urine Culture - Preliminary Escherichia coli PG Care Time/CCT Total # of Minutes Spent Total Time Spent with Patient: Total time spent is greater than 50% in coordination of care (as documented) at patient's floor/unit and/or counseling patient: Coding Level of Care Code 01338 SUB INP/OBS CARE 3/50MIN Diagnoses Fall W19.XXXA Hyponatremia E87.1 UTI (urinary tract infection) N39.0 History of ESBL E. coli infection Z86.19 SIADH (syndrome of inappropriate ADH production) E22.2 Chronic hypoxic respiratory failure J96.11 Restrictive lung disease J98.4 Morbid obesity with BMI of 40.0-44.9, adult E66.01; Z68.41 Chronic reflux esophagitis K21.0
[2025-05-27] MEDS: ONDANSETRON INJ 2 MG/ML 2 ML VIAL IV PRN (20:50)
[2025-05-28 06:38] LABS: Anion Gap 7.0 (3-11); Blood Urea Nitrogen 12.0 mg/dl (6-23); Calcium 8.1 mg/dl (8.6-10.3); Carbon Dioxide 26.0 mmol/L (21-32); Chloride 95.0 mmol/L (98-107); Creatinine Clr Calc Pharmacy 69.4 ml/min; Glucose 89.0 mg/dl (70-99(Fasting)); Magnesium 2.0 mg/dl (1.7-2.4); Potassium 4.4 mmol/L (3.5-5.1); Sodium 128.0 mmol/L (136-145)
[2025-05-28] MEDS: SODIUM CHLORIDE 1 GM TABLET PO SCH (08:01)
--- NOTE | 2025-05-28 08:36 | XRay Report ---
Clinical history: Fecal incontinence 3 views of the abdomen were obtained Findings: The bowel gas pattern appears unremarkable. There appears to be a normal amount of stool within the colon. No renal or ureteral calculi are seen. No foreign body is evident. There is lumbar scoliosis and degenerative disc disease. There are vertebroplasty changes at multiple levels Impression: Unremarkable bowel gas pattern Electronically signed by Kelvin Guerrero 05-28-2025 08:36 AM
[2025-05-28] MEDS: CYANOCOBALAMIN (B-12) 500 MCG TABLET PO SCH (09:36)
--- NOTE | 2025-05-28 11:23 | Hospitalist Progress Note ---
Date of Service May 28, 2025 Assessment & Plan (1) Fall: (2) Hyponatremia: (3) UTI (urinary tract infection): (4) History of ESBL E. coli infection: (5) SIADH (syndrome of inappropriate ADH production): (6) Chronic hypoxic respiratory failure: (7) Restrictive lung disease: (8) Morbid obesity with BMI of 40.0-44.9, adult: (9) Chronic reflux esophagitis: Plan 84yo female who presented on 05/26 after sustaining a ground-level fall on 05/25. Fortunately no fractures in any location despite the fall. Several days of poor appetite and dyspepsia/stomach upset possibly due to UTI in the days leading up to her fall. #Fall - -accidental, simply lost balance while ascending steps -no dizziness, no presyncope, no focal weakness, no loss of consciousness -B12 level wnl, but only in the 300s; will recommend 3 months of B12 1000mcg daily -treat UTI -treating low Na -PT/OT evals appreciated; cleared for home at d/c; home PT/OT would likely be a good idea for her, however #Acute/chronic Hyponatremia 2nd SIADH - -presenting Na level 126; baseline upper 120s to low 130s -appeared to be asymptomatic from the hyponatremia -stable Na level of 128 today -I suspect the salt tabs are contributing to nausea - will stop -cont fluid restriction -urine osm, urine Na, serum osm all c/w SIADH -will give lasix 20mg po x 1 to promote free water excretion -not sure if patient is following fluid restriction at home -previously followed by Dr Falcon for this issue -cause of SIADH? psychotropic meds? -repeat BMP am tomorrow -cont 1200cc fluid restriction #mild hypomagnesemia - -s/p repletion and now normal at 2 today #UTI 2nd to ESBL e.coli - -day #3 of IV ertapenem -plan 7 days of Rx of ertapenem -I spoke with Aleksandar Mcfadden, her grand-son, who is an EMT -he is comfortable with giving her the IV abx at her home -script given to case management for the abx to start at home on 05/30 -PIV vs u/s-guided IV for home use #h/o GERD - -cont PPI #chronic hypoxic resp failure on home o2 - -will obtain formal 2-step before d/c -only uses the NC O2 during the daytime "some times"; uses faithfully at nighttime #morbid obesity - -BMI 40 #fecal incontinence - -checked KUB today - no significant fecal impaction or severe constipation #urinary incontinence - -chronic -discussed time voids, double voids, etc -discussed use of adult diapers - this can make UTI risk higher -recommend outpatient urology consult -nothing on CT a/p from anatomic standpoint that could be contributing #hypothyroidism - -TSH wnl -cont synthroid dispo - home with home health; consider home PT/OT as well family updated at bedside today care d/w Karely Antonio from case management care d/w Aleksandar Mcfadden, grandson hopefully home tomorrow if Na is stable, she is feeling well, etc. Admission and Anticipated Discharge Date Admission Date: May 26, 2025 Subjective 2 visits to bedside today first was on AM rounds 2nd was late in the day; during the 2nd visit her & daughter along with another family member were present patient states that she had nausea last pm; occurred after taking her evening meds no nausea today ate a decent amount of her breakfast today no vomiting denies any musculoskeletal pains she had numerous questions about her disposition, timing of such, etc. she reported she has 2 family members that could likely administer her home abx - a grandson who is a dental chair assembler, and a grand-daughter (in law) that is a PA she asks that I reach out to them she asks if she can stay thru next Friday (last dose of IV ertapenem) then asks if she can stay thru Friday apparently her air conditioning unit at home is broken but her grandson and another family member are in the process of trying to install what sounds like a window unit Review of Systems Review of Systems: gen - no fevers or chills cv - no chest pain pulm - mild dyspnea - at baseline; using NC O2 nearly [id number] while hospitalized GI - no abd pain Physical Exam Physical Exam: gen - lying in bed comfortably, awake/alert, NAD; looks similar to yesterday neck - no JVD mouth - MMM heart - RRR, s1 s2, no murmur lungs - mild end-exp wheezes; fine dry crackles both bases with mildly decreased BS both bases abd - soft NT ND BS+ ext - pulses b/l feet 2+ psych - a/o x 3 Results & Data Results & Data Vital Signs (Past 12 Hours) Vital Signs Temp Pulse Resp BP Pulse Ox O2 Del Method O2 Flow Rate 05/28/25 08:00 Nasal Cannula 2 05/28/25 07:33 36.6 C 85 16 183/77 H 95 Nasal Cannula 2 05/28/25 07:18 84 18 94 Nasal Cannula 2 Laboratory Results Laboratory Results - last 24 hr 05/28/25 05:32 Sodium 128 L Potassium 4.4 Chloride 95 L Carbon Dioxide 26 Anion Gap 7 BUN 12 Creatinine 0.68 Est Cr Clr Drug Dosing 69.4 eGFR 85.29 BUN/Creatinine Ratio 17.6 Glucose 89 Calcium 8.1 L Magnesium 2.0 Vitamin B12 373 Diagnostic Findings KUB X-Ray 05/28/25 08:00 Clinical history: Fecal incontinence 3 views of the abdomen were obtained Findings: The bowel gas pattern appears unremarkable. There appears to be a normal amount of stool within the colon. No renal or ureteral calculi are seen. No foreign body is evident. There is lumbar scoliosis and degenerative disc disease. There are vertebroplasty changes at multiple levels Impression: Unremarkable bowel gas pattern Electronically signed by Kelvin Guerrero 05-28-2025 08:36 AM urine cx: ESBL e.coli, sens to ertapenem PG Care Time/CCT Total # of Minutes Spent Total Time Spent with Patient: Total time spent is greater than 50% in coordination of care (as documented) at patient's floor/unit and/or counseling patient: Coding Level of Care Code 89198 SUB INP/OBS CARE 3/50MIN Diagnoses Fall W19.XXXA Hyponatremia E87.1 UTI (urinary tract infection) N39.0 History of ESBL E. coli infection Z86.19 SIADH (syndrome of inappropriate ADH production) E22.2 Chronic hypoxic respiratory failure J96.11 Restrictive lung disease J98.4 Morbid obesity with BMI of 40.0-44.9, adult E66.01; Z68.41 Chronic reflux esophagitis K21.0
[2025-05-28] MEDS: FUROSEMIDE 20 MG TAB PO ONE (11:39)
[2025-05-28] MEDS: FLUTICASONE PROPIONATE NA SPR 16 GM BTL SCH (20:30)
[2025-05-28] MEDS: LEVOTHYROXINE SODIUM 25 MCG TABLET PO SCH (20:31)
[2025-05-29 06:01] LABS: Anion Gap 6.0 (3-11); Blood Urea Nitrogen 14.0 mg/dl (6-23); Calcium 8.0 mg/dl (8.6-10.3); Carbon Dioxide 28.0 mmol/L (21-32); Chloride 95.0 mmol/L (98-107); Creatinine Clr Calc Pharmacy 68.4 ml/min; Glucose 88.0 mg/dl (70-99(Fasting)); Potassium 4.5 mmol/L (3.5-5.1); Sodium 129.0 mmol/L (136-145)
[2025-05-29 07:15] VITALS: TEMP 97.7
[2025-05-29] MEDS: FUROSEMIDE 20 MG TAB PO ONE (07:35)
[2025-05-29 13:11] VITALS: BP 158/85; PULSE 77; RESP 16; O2SAT 92
--- NOTE | 2025-05-29 16:52 | Discharge Summary ---
Discharge Summary Date of Service May 29, 2025 Principal Dx & Hospital Course #1 = Principal Diagnosis (1) Fall: (2) Hyponatremia: (3) UTI (urinary tract infection): (4) History of ESBL E. coli infection: (5) SIADH (syndrome of inappropriate ADH production): (6) Chronic hypoxic respiratory failure: (7) Restrictive lung disease: (8) Morbid obesity with BMI of 40.0-44.9, adult: (9) Chronic reflux esophagitis: Plan 84yo female who presented on 05/26 after sustaining a ground-level fall on 05/25. Fortunately no fractures in any location despite the fall. Several days of poor appetite and dyspepsia/stomach upset possibly due to UTI in the days leading up to her fall. #Fall - -accidental, simply lost balance while ascending steps -no dizziness, no presyncope, no focal weakness, no loss of consciousness -B12 level wnl, but only in the 300s; will recommend 3 months of B12 1000mcg daily -treat UTI -treating low Na -PT/OT evals appreciated; cleared for home at d/c; home PT/OT would likely be a good idea for her, however #Acute/chronic Hyponatremia 2nd SIADH - -presenting Na level 126; baseline upper 120s to low 130s -appeared to be asymptomatic from the hyponatremia -stable Na level of 128 today -I suspect the salt tabs are contributing to nausea - will stop -cont fluid restriction -urine osm, urine Na, serum osm all c/w SIADH -will give lasix 20mg po x 1 to promote free water excretion -not sure if patient is following fluid restriction at home -previously followed by Dr Falcon for this issue -cause of SIADH? psychotropic meds? -repeat BMP am tomorrow -cont 1200cc fluid restriction #mild hypomagnesemia - -s/p repletion and now normal at 2 today #UTI 2nd to ESBL e.coli - -day #3 of IV ertapenem -plan 7 days of Rx of ertapenem -I spoke with Aleksandar Mcfadden, her grand-son, who is an EMT -he is comfortable with giving her the IV abx at her home -script given to case management for the abx to start at home on 05/30 -PIV vs u/s-guided IV for home use #h/o GERD - -cont PPI #chronic hypoxic resp failure on home o2 - -will obtain formal 2-step before d/c -only uses the NC O2 during the daytime "some times"; uses faithfully at nighttime #morbid obesity - -BMI 40 #fecal incontinence - -checked KUB today - no significant fecal impaction or severe constipation #urinary incontinence - -chronic -discussed time voids, double voids, etc -discussed use of adult diapers - this can make UTI risk higher -recommend outpatient urology consult -nothing on CT a/p from anatomic standpoint that could be contributing #hypothyroidism - -TSH wnl -cont synthroid dispo - home with home health; consider home PT/OT as well family updated at bedside today care d/w Karely Antonio from case management care d/w Aleksandar Mcfadden, grandson hopefully home tomorrow if Na is stable, she is feeling well, etc. Admission HPI Per Admitting Provider Mr. Mcfadden is an 84-year-old female with PMH of hypothyroidism, osteoporosis, restrictive lung disease, depression, breast cancer, HTN, and HLD. She presented on 05/26 after sustaining a ground-level fall the night prior. Patient reports it was raining last night when she and her got home. She was walking up to 4-5 steps into this at her house, when she lost her balance. Her tried to help her, but she could not get her foot over the last step, and she fell. No head strike. No LOC. She does take a baby aspirin nightly, but is unsure why she takes this. Patient took her regular morning medicine today. No recent change in medications. She does have a history of low sodium and potassium in the past. While she reports no recent change in diet, she has been feeling "sick to [her] stomach" the past couple days, and has not been eating much. She also endorses nausea, but no vomiting. Patient uses supplemental oxygen at night, and during the day as needed. Former tobacco smoker; quit in 1988. Patient endorses intermittent burning with urination; history of renal UTIs. She also reports that she has fecal incontinence at baseline; this has been ongoing for extended period time; wears diaper briefs at home. She denies any recent alcohol use. She ambulates with a cane at baseline. Patient's SpO2 is 97% on 2L NC on arrival; vitals otherwise stable. ED Course: NSS 500 mL IV ROS: Patient endorses BOWMAN (chronic), dry cough, abdominal cramping, nausea, diarrhea, and intermittent burning with urination. Patient denies fever, chills, night-sweats, dizziness, lightheadedness, chest pain, vomiting, dry heaves, or blood in the urine/stool. Discharge Exam gen - lying in bed comfortably, awake/alert, NAD; looks similar to yesterday neck - no JVD mouth - MMM heart - RRR, s1 s2, no murmur lungs - mild end-exp wheezes; fine dry crackles both bases with mildly decreased BS both bases abd - soft NT ND BS+ ext - pulses b/l feet 2+ psych - a/o x 3 Discharge Plan Discharge Items Patient Disposition: Home - Home Health Services Reason For Visit: HYPONATREMIA, UTI Discharge Diagnosis: 1. urinary tract infection due to a resistant strain of e.coli 2. fall with resulting bruises/contusions 3. chronic hyponatremia (low sodium level) 4. urinary incontinence 5. chronic oxygen dependency Activity: As commented below Activity Comment: gradually increase activities over the next 3-5 days Non-emergency contact: Primary Care Provider Call non-emergency contact if: you have any medication questions, your symptoms worsen, your pain is not controlled and you have a fever Follow-up/Referrals: [facility] [Provider Group] (please talk to Ms Melgoza about a referral to urology for your urinary incontinence) Mirian Melgoza CRNP [Primary Care Provider] - (see Ms Melgoza within 1 week ) Diet: Regular Fluids: 1500ml (6 cups) Addtl Attending Provider Instructions: Ms Mcfadden, You were hospitalized after having had a fall at home with resulting bumps, bruises, and contusions. When you came to the ER for evaluation we saw that your sodium level was 126. Your sodium level is chronically low, but typically runs upper 120s to low 130s. In addition, you had evidence of urinary tract infection. Fortunately all of your CT scans and x-rays did NOT show any broken bones or internal injuries. Urine culture grew a resistant strain of e.coli. This strain is only amenable to IV antibiotics. You have received 4 days of IV ertapenem antibiotic, and you will have 3 additional days of IV ertapenem at your home starting 05/30/25. Sodium level improved to 129 with fluid restriction and salt tablets. We also gave you a couple of doses of furosemide diuretic. Walking oxygen test showed that you do not need oxygen when sitting, but you need to use the oxygen with any activity/ambulation. Please use 2 liters of oxygen with walking/ambulation; be sure to bring the oxygen with you when you leave your home. We talked several times about your urinary incontinence. Urinary incontinence is a known risk factor for bladder infections. We discussed timed voids and double voids. See handouts on these topics. It would likely be very helpful for you to see [facility] as well for the incontinence. Recommendations - 1. IV ertapenem x 3 days starting 05/30/25. Most common side effect of any IV antibiotic - diarrhea. 2. Do not drink more than 1500ml (50 ounces) of fluid each day. This includes all fluids -- water, juice, tea, etc. Remember that any beverage with caffeine can cause bladder irritation and make your urinary incontinence worse. 3. Take furosemide water pill on the AM of 05/30 and the AM of 05/31. After those 2 doses use the furosemide on an as needed basis. In the future you can use the furosemide as needed for swelling/edema of your legs. Furosemide is a diuretic which makes you urinate more than usual. 4. You will need a repeat sodium level within the next 5-7 days. Ms Melgoza can order that for you. 5. For any aches/pains related to your recent fall you can take cgtz-eiy-phkymng tylenol 1000mg every 6 hours as needed, maximum 3000mg in 24 hours. 6. Your vitamin B12 level was normal, but I would still take a vitamin B12 supplement daily for about 3 months. You can purchase xgnt-uwt-oyphxok vitamin B12 and take 1000mcg daily. Follow-up - see separate section Return to [facility] if - -you have fevers over 100 degrees -you have worsening shortness of breath -you have severe diarrhea (more than 3 liquid stools over a 24-hour period) -you have worsening abdominal pain or nausea/vomiting -any other concerns It was our pleasure to care for you ! Pending Studies at Discharge: No Stand-Alone Forms: My [facility] [employer], Smoking Cessation Medications and DC Order Prescriptions: New ertapenem 1 gram recon soln 1 g IV DAILY 3 Days Qty: 3 0RF Rx Instructions: start 05/30/25. cyanocobalamin (vitamin B-12) 1,000 mcg tablet 1,000 mcg PO DAILY Qty: 90 0RF Rx Instructions: purchase zkfr-fuz-iqqljqi furosemide [Lasix] 20 mg tablet 20 mg PO DAILY PRN (Reason: edema of legs) Qty: 20 0RF (DME) Oxygen Home Liters Per Minute See Rx Instructions .ROUTE .MEDSUPPLY Qty: 1 0RF Rx Instructions: 2 liters oxygen at night-time with sleep and with ambulation/activity Continued potassium chloride 20 mEq tablet extended release 20 meq PO DAILY Qty: 90 3RF lisinopril 10 mg tablet 10 mg PO DAILY Qty: 90 3RF venlafaxine 75 mg capsule,extended release 24hr 75 mg PO DAILY Qty: 90 3RF simvastatin 20 mg tablet 20 mg PO HS Qty: 90 3RF fluticasone propionate 50 mcg/actuation spray,suspension 2 spray intranasal DAILY Qty: 16 6RF atenolol 50 mg tablet 50 mg PO DAILY Qty: 90 3RF Centrum Silver 0.4-300-250 mg-mcg-mcg tablet 1 tab PO DAILY acetaminophen 500 mg tablet 500 mg PO DIRECTED PRN (Reason: fever or pain) Patient Comments: 500 mg PO PRN; budesonide 1 mg/2 mL suspension for nebulization 1 mg inhalation BID Qty: 120 5RF Azo Cranberry 250 mg tablet,chewable 250 mg PO TID aspirin 81 mg Tablet,Chewable 81 mg PO QPM calcium carbonate [Calcium 600] 600 mg calcium (1,500 mg) tablet 600 mg PO DAILY trazodone 50 mg tablet 75 mg PO HS arformoterol 15 mcg/2 mL solution for nebulization 15 mcg inhalation BID Rx Instructions: USE 1 VIAL IN NEBULIZER TWICE DAILY FOR COPD, RESTRICTIVE LUNG DISEASE New in 2023-No PA required Changed levothyroxine 25 mcg tablet 37.5 mcg PO HS Qty: 135 3RF Discharge Orders: Discharge Order (Routine); Ordered 05/29/25 Ordered By: Hubert Wolf/Other Patient Handouts: Incontinence Women Retraining Tx Admission Data Admit Date/Time: 05/26/25 19:27 Attending Provider: Hubert Cardona Admit Provider: Hubert Cardona Primary Care Provider: Mirian Melgoza Other Providers: Hubert Cardona; Sonido,Fax; [facility],Home Healthcare Other Interventions: Discharge Summary Assessment (RN) Last Done: 05/29/25 14:13 Hospital Stay Data Consultations 05/26/25 17:54 ED Decision to Admit Stat Diagnostic Imagining Performed 05/26/25 15:24 CT abd pelvis IV con only Stat CT cervical spine wo con Stat CT chest diagnostic w con Stat CT head/brain wo con Stat Pending Results Patient Have Any Pending Studies at Discharge: No Discharge Instructions Given to Patient (Per Discharging Provider) Ms Matter, You were hospitalized after having had a fall at home with resulting bumps, bruises, and contusions. When you came to the ER for evaluation we saw that your sodium level was 126. Your sodium level is chronically low, but typically runs upper 120s to low 130s. In addition, you had evidence of urinary tract infection. Fortunately all of your CT scans and x-rays did NOT show any broken bones or internal injuries. Urine culture grew a resistant strain of e.coli. This strain is only amenable to IV antibiotics. You have received 4 days of IV ertapenem antibiotic, and you will have 3 additional days of IV ertapenem at your home starting 05/30/25. Sodium level improved to 129 with fluid restriction and salt tablets. We also gave you a couple of doses of furosemide diuretic. Walking oxygen test showed that you do not need oxygen when sitting, but you need to use the oxygen with any activity/ambulation. Please use 2 liters of oxygen with walking/ambulation; be sure to bring the oxygen with you when you leave your home. We talked several times about your urinary incontinence. Urinary incontinence is a known risk factor for bladder infections. We discussed timed voids and double voids. See handouts on these topics. It would likely be very helpful for you to see [facility] as well for the incontinence. Recommendations - 1. IV ertapenem x 3 days starting 05/30/25. Most common side effect of any IV antibiotic - diarrhea. 2. Do not drink more than 1500ml (50 ounces) of fluid each day. This includes all fluids -- water, juice, tea, etc. Remember that any beverage with caffeine can cause bladder irritation and make your urinary incontinence worse. 3. Take furosemide water pill on the AM of 05/30 and the AM of 05/31. After those 2 doses use the furosemide on an as needed basis. In the future you can use the furosemide as needed for swelling/edema of your legs. Furosemide is a diuretic which makes you urinate more than usual. 4. You will need a repeat sodium level within the next 5-7 days. Ms Melgoza can order that for you. 5. For any aches/pains related to your recent fall you can take xvxu-jqu-qojxcrp tylenol 1000mg every 6 hours as needed, maximum 3000mg in 24 hours. 6. Your vitamin B12 level was normal, but I would still take a vitamin B12 supplement daily for about 3 months. You can purchase tqmd-kvi-[id number] vitamin B12 and take 1000mcg daily. Follow-up - see separate section Return to [facility] if - -you have fevers over 100 degrees -you have worsening shortness of breath -you have severe diarrhea (more than 3 liquid stools over a 24-hour period) -you have worsening abdominal pain or nausea/vomiting -any other concerns It was our pleasure to care for you ! Coding Diagnoses Fall W19.XXXA Hyponatremia E87.1 UTI (urinary tract infection) N39.0 History of ESBL E. coli infection Z86.19 SIADH (syndrome of inappropriate ADH production) E22.2 Chronic hypoxic respiratory failure J96.11 Restrictive lung disease J98.4 Morbid obesity with BMI of 40.0-44.9, adult E66.01; Z68.41 Chronic reflux esophagitis K21.0
== END 2025-05-29 17:53 | disposition home health service (06) | DRG 644 ==
LOC: ED 15:07 → 3E 19:27 → INTOOBSV 19:27 → 3E 20:12

== ENCOUNTER 2025-10-14 08:56 | Inpatient (IN) ==
--- NOTE | 2025-10-14 09:27 | Emergency Department Note ---
Impression & Plan Acute hypoxic respiratory failure, Restrictive lung disease ED Provider Note NAME: BRANDEN SOTELO AGE: 84 SEX: F : 1940 ARRIVES VIA: Walk-In INFORMANT: Patient, ED PROVIDER(S): Himanshu Davidson MD CHIEF COMPLAINT: Shortness of breath, feeling unwell MEDICAL DECISION MAKING: Patient presents due to concerns for increased shortness of breath from her baseline. Patient does have diminished breath sounds throughout does have a known history of restrictive lung disease. IV was established and blood work was obtained. Patient was ordered a blood gas EKG chest x-ray. Patient ordered DuoNeb treatment and IV steroids methylprednisolone 60 mg. The patient did feel improved after treatment. Patient with a white count of 11 with a normal hemoglobin and platelet count. Kidney function unremarkable. Hyponatremia noted but known history of SIADH. VBG without hypercarbia or acidosis. Magnesium of 1.6. The patient was ordered 2 g over an hour. Patient's chest x-ray did show concern for cardiomegaly and interstitial pulmonary edema. Patient may also have associated pleural effusions although the patient's inspiratory effort is poor. This may also be contributing to the patient's hyponatremia. The patient was ordered Lasix IV. Patient did undergo an ambulatory pulse ox trial on her home oxygen and desatted to 85%. Given the patient's increased oxygen requirements and possible volume overload and SIADH I did speak with the on-call hospital service and the patient was admitted to the medicine service by Dr. Cardona. Critical Care: I have personally spent 35 minutes of critical care time in direct management of this patient. This includes bedside care, interpretation of diagnostic studies, and testing, discussion with consultants, patient, and family members, and other require inpatient management activities. This 35 minutes is in excess of all separately billable procedures. Discussion w/ other healthcare providers: Dr. Cardona inpatient medicine service Prior /Outside records reviewed: I reviewed part of a primary care visit from July 15, 2025 from Mirian Barker. Patient with a known history of chronic hypoxic respiratory failure as well as SIADH hyperlipidemia hypertension hypothyroidism and hyponatremia. They did review part of a pulmonary visit with Dr. Boyer from July 14. Patient reportedly does have a history of severe restrictive lung disease multifactorial elevation of the right hemidiaphragm and fibrotic changes in lung Brezovic because of radiation for right-sided breast cancer. Also with an associated hiatal hernia and obesity. Was recommended the patient should trial pulmonary rehab the patient is not interested. Patient with a history of smoking [id number] history quit in 1988. Patient using Brovana and budesonide nebulized at home. I did review part of a prior urology visit note from October 03 with Fidelia Albrecht. Patient was seen at that time for history of recurrent UTIs including ESBL E. coli. Patient does take cranberry supplement. Patient was started on methenamine. Review of recent fill does show recent Macrobid started on October 12 in addition to methenamine. Review of the urine culture shows a positive urine culture that was obtained from October 10 with Aer[facility]. Differential diagnosis: Reactive airway disease, pneumonia, pneumothorax, COPD, CHF, ACS, pulmonary embolism, musculoskeletal, GERD as well as other pathologies were considered. Diagnostics, as interpreted by me: ECG: Normal sinus rhythm, rate of 97, normal intervals, normal axis no ST elevations. Cardiac monitoring: An order was placed for continuous cardiac monitoring. The monitor shows a rate of 95 with sinus rhythm. Patient was placed on pulse oximetry Medical decision rules: None Imaging studies: I informally interpreted the patient's chest x-ray shows possible bilateral pleural effusions with formal report to follow. HPI: Patient presents due to concern for feeling generally unwell as long with associated shortness of breath. Known prior history of restrictive lung disease and has followed Dr. Pires in the past. She states that she was at her urologist on Friday and had a urine specimen obtained and was diagnosed with a UTI started on antibiotics which she has been taking since Friday. The patient states that she feels generally unwell since treatment. Patient states that she never had any symptoms at the time of the urinalysis. Patient states that this morning around 5:00 she felt more short of breath. Patient does have chronic cough and states that this is unchanged. Patient denies any known sick contacts or recent travel. Former smoker. Patient denies any productive cough. She has been using her nebulizer maintenance treatments which she uses twice daily and did use this morning. She did not notice any significant improvement after taking her maintenance dose this morning. Patient denies any recent [place] or plane travel no fevers or chills. She denies any history of DVT or PE. Patient does wear 2 L of oxygen at nighttime but not typically during the day. The patient has been using daytime oxygen for about the last week. PAST MEDICAL HISTORY: See Below PAST SURGICAL HISTORY: See Below SOCIAL HISTORY: See Below HOME MEDICATIONS: See Below ALLERGIES: See Below VITALS: See Below PHYSICAL EXAMINATION: GENERAL: NAD, non-toxic. Nasal cannula in place. EYE EXAM: Normal conjunctiva. PERRL, no anisocoria and EOM's grossly intact w/o pain. OROPHARYNX: Moist mucus membranes, grossly normal dentition. NECK: Trachea midline, no stridor. Supple, no nuchal rigidity, no adenopathy, non-tender. No signs of meningismus. FROM of the neck with good chin to chest and neck extension. LUNGS: Diminished breath sounds throughout. Normal chest wall mechanics. HEART: NSR, no MRG. ABDOMEN: Abdomen soft, non-tender, no masses, no rebound or guarding. BACK: No CVA TTP. SKIN: No rashes and no bruising. UPPER EXTREMITIES: Upper extremities are grossly normal. LOWER EXTREMITIES: Grossly normal, nonpitting edema bilaterally, no asymmetry or erythema. NEURO EXAM: Awake and alert, follows commands, no obvious facial asymmetry, normal speech, moves all 4 extremities. Past Med/Surg History Problem List (Updated 10/14/25 @ 18:03 by Himanshu Davidson MD) GERD (gastroesophageal reflux disease) Acute hypoxic respiratory failure (Acute) Hypersomnia Short of breath on exertion Hiatal hernia Pulmonary fibrosis Abnormal chest CT Elevated hemidiaphragm Perineal irritation in female Recurrent UTI Morbid obesity with BMI of 40.0-44.9, adult Chronic hypoxic respiratory failure Anemia (Acute) SIADH (syndrome of inappropriate ADH production) History of ESBL E. coli infection Leg weakness, bilateral Hypothyroidism (Chronic) Hyponatremia (Chronic) Insomnia (Chronic) Hyperlipidemia (Chronic) Hypertension (Chronic) Restrictive lung disease (Chronic) Osteoporosis (Chronic) Hypoxia (Chronic) Dyspnea on exertion (Chronic) Depression with anxiety (Chronic) Constipation (Chronic) Medical History Chronic reflux esophagitis Anxiety disorder Osteoarthritis Cancer RT BREAST CANCER (RADIATION) Hearing deficit Lumbar compression fracture Hypernatremia Surgical History History of dilatation and curettage History of back surgery LUMBAR SURGERY (NO HARDWARE) History of total knee replacement RT History of esophagogastroduodenoscopy (EGD) History of colonoscopy (~2018) History of herniorrhaphy X2 History of cholecystectomy Hx of lumpectomy RT BREAST History of tooth extraction History of cataract surgery RT/LEFT History of appendectomy Family History Brother Family history of diabetes mellitus Sister Family hx of colon cancer Breast cancer Colorectal cancer Mother Myocardial infarction Denies family history of Ovarian cancer Prostate cancer Social History Smoking Status: Former smoker Tobacco Type: Cigarettes Age Started Using Tobacco: 17; Age Quit Using Tobacco: 48; packs per day: 0.5; Cigarettes Per Day: QUIT 1988; Second Hand Exposure: No; Do You Dip or Chew Tobacco: No; Hx Alcohol Use: No Hx Substance Use: No Preferred Language: Mohawk Communication Ability: Effective Visual Impairment: Limited Hearing Ability: Normal 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 ) Do you think of yourself as: straight/heterosexual Sexual Activity: has been sexually active, but not for at least 12 months Gender Identity: Female Assistive Devices: Denture - Upper, Denture - Lower, Oxygen - at Night and Walker Allergies Allergies Allergy/AdvReac Type Severity Reaction Status Date / Time Sulfa (Sulfonamide Allergy Severe Anaphylaxis Verified 07/15/25 08:27 Antibiotics) Penicillins Allergy Intermediate RASH Verified 07/15/25 08:27 fosfomycin AdvReac Mild Nausea Verified 07/15/25 08:27 Home Meds Home Medications Medication Instructions Recorded Confirmed aspirin 81 mg chewable tablet 81 mg PO QPM 09/28/18 10/14/25 [id number]-fke-guufv acid 0.4 1 tab PO DAILY 06/07/19 10/14/25 mg-lycopene 300 mcg-lutein 250 mcg tablet (Centrum Silver) acetaminophen 500 mg tablet 500 mg PO DIRECTED PRN fever or 10/17/19 10/14/25 pain calcium carbonate (Calcium 600) 600 mg PO DAILY 04/25/23 10/14/25 cranberry fruit concentrate 250 mg 250 mg PO TID 10/21/24 10/14/25 chewable tablet (Azo Cranberry) ketoconazole 2 % topical cream 0 applic topical BID 10/14/25 10/14/25 Previous Rx's Medication Instructions Recorded fluticasone propionate 50 2 spray intranasal DAILY #16 grams 12/20/24 mcg/actuation nasal spray,suspension atenolol 50 mg tablet 50 mg PO DAILY #90 tabs 01/11/25 Oxygen Home #1 ea 05/29/25 cyanocobalamin (vitamin B-12) 1,000 mcg PO DAILY #90 tabs 05/29/25 1,000 mcg tablet furosemide 20 mg tablet (Lasix) 20 mg PO DAILY PRN edema of legs 05/29/25 #20 tabs levothyroxine 25 mcg tablet 37.5 mcg (1.5 x 25 mcg) PO HS #135 05/29/25 tabs lisinopril 10 mg tablet 10 mg PO DAILY #90 tabs 06/17/25 potassium chloride 20 mEq 20 meq PO DAILY #90 tabs 06/24/25 tablet,extended release venlafaxine 75 mg capsule,extended 75 mg PO DAILY #90 caps 06/24/25 release 24 hr budesonide 1 mg/2 mL suspension 1 mg (2 mL) inhalation BID #120 mL 07/14/25 for nebulization arformoterol 15 mcg/2 mL solution 15 mcg (2 mL) inhalation BID #120 07/26/25 for nebulization mL simvastatin 20 mg tablet 20 mg PO HS #90 tabs 08/09/25 trazodone 50 mg tablet 75 mg (1.5 x 50 mg) PO HS #90 tabs 08/23/25 methenamine hippurate 1 gram tablet 1 g PO BID #180 tabs 10/12/25 nitrofurantoin 100 mg PO Q12H 5 days #10 caps 10/12/25 monohydrate/macrocrystals 100 mg capsule (Macrobid) Results & Data (ED) Vital Signs Vital Signs - 24 hr 10/14/25 08:56 10/14/25 09:02 10/14/25 09:04 Temperature 36.6 C Temperature Source Temporal Artery Scan Pulse Rate 100 H Pulse Rate from SpO2 Sensor Pulse Rhythm Respiratory Rate 26 H Respiratory Effort / Characteristics Short of Breath Respiratory Depth Shallow Blood Pressure 180/101 H Blood Pressure Mean 127 Pulse Oximetry 95 Oxygen Delivery Method Room Air Nasal Cannula Nasal Cannula Oxygen Flow Rate 2 2 2 Sepsis Recent Fever Within 48 Hours No Sepsis New/Unexplained Change in Mental Status N/A Sepsis Action Taken by Nursing No Action Required 10/14/25 09:04 10/14/25 10:15 10/14/25 11:00 Temperature Temperature Source Pulse Rate 87 105 H 106 H Pulse Rate from SpO2 Sensor 107 H Pulse Rhythm Regular Respiratory Rate 18 25 H Respiratory Effort / Characteristics Respiratory Depth Blood Pressure 155/96 H Blood Pressure Mean 111 Pulse Oximetry 95 97 Oxygen Delivery Method Nasal Cannula Nasal Cannula Oxygen Flow Rate 2 2 Sepsis Recent Fever Within 48 Hours Sepsis New/Unexplained Change in Mental Status Sepsis Action Taken by Nursing 10/14/25 12:30 Temperature Temperature Source Pulse Rate 96 H Pulse Rate from SpO2 Sensor 96 H Pulse Rhythm Respiratory Rate 23 Respiratory Effort / Characteristics Respiratory Depth Blood Pressure 175/91 H Blood Pressure Mean 119 Pulse Oximetry 94 Oxygen Delivery Method Nasal Cannula Oxygen Flow Rate 2 Sepsis Recent Fever Within 48 Hours Sepsis New/Unexplained Change in Mental Status Sepsis Action Taken by [facility] Medications Current Medication List: was personally reviewed by me Laboratory Data Attestation: I reviewed the patient's lab results. 10/14/25 09:15 10/14/25 09:15 Lab Results 10/14/25 10/14/25 10/14/25 Range/Units 09:15 09:58 10:30 WBC 11.19 H (4.8-10.8) K/ul RBC 4.00 L (4.20-5.40) M/uL Hgb 13.0 (12.0-16.0) g/dL Hct 38.8 (37.0-47.0) % MCV 97.0 (80.0-100.0) fL MCH 32.5 (25.0-34.0) pg MCHC 33.5 (32.0-36.0) g/dL RDW Std Deviation 45.2 (36.4-46.3) fL RDW Coeff of Jannie 12.7 (11.5-14.5) % Plt Count 282 (130-400) K/uL MPV 9.7 (9.4-12.4) fL Immature Gran % (Auto) 0.4 % Neut % (Auto) 84.8 % Lymph % (Auto) 6.6 % [place] % (Auto) 7.5 % Eos % (Auto) 0.2 % Baso % (Auto) 0.5 % Neut # (Auto) 9.49 H (1.40-6.50) K/uL Lymph # (Auto) 0.74 L (1.20-3.40) K/uL [place] # (Auto) 0.84 H (0.11-0.59) K/uL Eos # (Auto) 0.02 (0.00-0.50) K/uL Baso # (Auto) 0.06 (0.00-0.20) K/uL Immature Gran # (Auto) 0.04 (0.01-0.20) K/uL PT 10.2 (9.0-12.0) Seconds INR 1.0 (0.9-1.1) APTT 26 (21-31) Seconds PTT Ratio 1.0 VBG pH 7.43 H (7.36-7.41) VBG pCO2 42 (38-50) mmHg VBG pO2 49 mmHg VBG HCO3 28 mmol/L VBG O2 Saturation 83.0 % VBG Base Excess 3.2 mEq/L Sodium 128 L (136-145) mmol/L Potassium 4.3 (3.5-5.1) mmol/L Chloride 93 L (98-107) mmol/L Carbon Dioxide 27 (21-32) mmol/L Anion Gap 8 (3-11) BUN 13 (6-23) mg/dl Creatinine 0.62 (0.6-1.2) mg/dl Est Cr Clr Drug Dosing Not Reportable eGFR 87.21 BUN/Creatinine Ratio 21.0 H (10-20) Glucose 103 H (70-99(Fasting)) mg/dl Calcium 9.0 (8.6-10.3) mg/dl Magnesium 1.6 L (1.7-2.4) mg/dl Total Bilirubin 0.6 (0.2-1.0) mg/dl AST 26 (13-39) U/L ALT 21 (7-52) U/L Alkaline Phosphatase 51 (34-104) U/L Troponin I High Sens 5.4 (0-14) pg/ml Total Protein 7.9 (6.0-8.3) gm/dl Albumin 3.7 (3.4-5.0) gm/dl Globulin 4.2 H (2.5-4.0) gm/dl Albumin/Globulin Ratio 0.9 (0.9-2) Urine Color Dark Yellow Urine Appearance Clear (Clear) Urine pH 7.5 (4.5-7.5) Ur Specific [place] 1.019 (1.000-1.030) Urine Protein 1+ H (Negative) Urine Glucose (UA) Negative (Negative) Urine Ketones Negative (Negative) Urine Blood Negative (Negative) Urine Nitrite Negative (Negative) Urine Bilirubin Negative (Negative) Urine Urobilinogen Negative (Negative) Ur Leukocyte Esterase Trace H (Negative) Urine WBC (Auto) 0-5 (0-5) /hpf Urine RBC (Auto) 0-2 (0-2) /hpf U Hyaline Cast (Auto) 0-2 (0-2) /lpf U Epithel Cells (Auto) 0-2 (0-2) /hpf Urine Bacteria (Auto) None Seen (None Seen) Urine Comment Administered Medications Discontinued Medications Albuterol (Albut/Ipratrop 3mg/0.5mg Neb 3 Ml Vial) 3 ml INH NOW STA Stop: 10/14/25 09:55 Last Admin: 10/14/25 10:11 Dose: 3 ml Documented By: TDM Atenolol (Atenolol 50 Mg Tablet) 50 mg PO NOW ONE Stop: 10/14/25 11:43 Last Admin: 10/14/25 11:47 Dose: 50 mg Documented By: TDM Furosemide (Furosemide Inj 20 Mg/2 Ml Vial) 20 mg IV ONE ONE Stop: 10/14/25 11:33 Last Admin: 10/14/25 12:17 Dose: 20 mg Documented By: TDM Magnesium Sulfate/Dextrose (Magnesium Sulfate / D5w) 1 gm in 100 mls @ 200 mls/hr IV Q30M MARLEY Stop: 10/14/25 12:06 Last Infusion: 10/14/25 13:06 Dose: Infused Documented By: Admin: 10/14/25 12:17 Dose: 200 mls/hr Documented By: Infusion: 10/14/25 12:15 Dose: Infused Documented By: Admin: 10/14/25 11:32 Dose: 200 mls/hr Documented By: TDM Lisinopril (Lisinopril 5 Mg Tab) 10 mg PO NOW ONE Stop: 10/14/25 11:43 Last Admin: 10/14/25 11:47 Dose: 10 mg Documented By: TDM Methylprednisolone (Methylprednisolone 125 Mg/2 Ml Vial) 60 mg IV NOW STA Stop: 10/14/25 09:55 Last Admin: 10/14/25 10:11 Dose: 60 mg Documented By: TDM Nitroglycerin (Nitroglycerin 2% Ointment 30gm Tube) 1 inch EXT NOW ONE Stop: 10/14/25 11:33 Last Admin: 10/14/25 11:43 Dose: Not Given Documented By: TDM Imaging Data Radiologist's Impression: Chest X-Ray 10/14/25 09:54 XR chest 1V portable HISTORY: 84 years-old Female Dyspnea acute shortness of breath COMPARISON: Chest radiograph 08/09/2022 TECHNIQUE: AP view of the chest FINDINGS: Cardiac silhouette is enlarged. Pulmonary vascular congestion with mild interstitial coarsening. Atherosclerosis of the aorta. No pneumothorax. Layering pleural effusions with bibasilar consolidation. IMPRESSION: 1. Cardiomegaly with mild interstitial pulmonary edema. 2. Layering pleural effusions with bibasilar opacities favoring atelectasis. Pneumonia considered less likely. ACT 112: Negative or not required by law. The above report was generated using voice recognition software. It may contain grammatical, syntax or spelling errors. Electronically signed by: Felix Smallwood M.D. 10/14/2025 10:23 AM Venous Doppler Study 10/14/25 12:37 BILATERAL LOWER EXTREMITY VENOUS DOPPLER CLINICAL HISTORY: Bilateral lower extremity edema. Dyspnea. Evaluate for deep venous thrombus. COMPARISON STUDY: No previous studies for comparison. TECHNIQUE: Sonography of the deep venous system of the bilateral lower extremities was performed. Compression and augmentation were evaluated. FINDINGS: The bilateral common femoral, superficial femoral and popliteal veins were compressible. Augmentation was normal. Flow was shown within the deep calf vessels although calf vessels were suboptimally assessed. IMPRESSION: Suboptimal visualization of the calf vessels but no evidence of deep venous thrombus within the bilateral lower extremities. ACT 112: Negative or not required by law. Electronically signed by: Marc Hoover M.D. 10/14/2025 1:56 PM Discharge Plan Visit Data Chief Complaint: Shortness of Breath/Dyspnea Stated Complaint: UTI, SOB ED Provider: Himanshu Davidson Discharge Problem: Acute hypoxic respiratory failure, Restrictive lung disease Patient Disposition: Admitted As Inpatient Condition: Good Discharge Instructions Interventions: ED Discharge Assessment Last Done: 10/14/25 15:59
[2025-10-14] MEDS: ALBUT/IPRATROP 3MG/0.5MG NEB 3 ML VIAL INH STA (10:11)
[2025-10-14 10:14] LABS: Hematocrit (blood only) 38.8 % (37.0-47.0); Hemoglobin 13.0 g/dL (12.0-16.0); Immature Granulocytes # (auto) 0.04 K/uL (0.01-0.20); Immature Granulocytes % (auto) 0.4 %; Mean Corpuscular Hemoglobin 32.5 pg (25.0-34.0); Mean Corpuscular Volume 97.0 fL (80.0-100.0); Platelet Count 282 K/uL (130-400); RDW Standard Deviation 45.2 fL (36.4-46.3); Red Blood Count 4.00 M/uL (4.20-5.40); White Blood Count 11.19 K/ul (4.8-10.8)
[2025-10-14 10:22] LABS: Appearance Urine Clear (Clear); Bacteria Urine Automated None Seen (None Seen); Cast Urine Automated 0-2 /lpf (0-2); Epithelial Cell Urine Auto 0-2 /hpf (0-2); Glucose Urine UA Negative (Negative); RBC Urine Automated 0-2 /hpf (0-2); WBC Urine Automated 0-5 /hpf (0-5)
--- NOTE | 2025-10-14 10:24 | XRay Report ---
XR chest 1V portable HISTORY: 84 years-old Female Dyspnea acute shortness of breath COMPARISON: Chest radiograph 08/09/2022 TECHNIQUE: AP view of the chest FINDINGS: Cardiac silhouette is enlarged. Pulmonary vascular congestion with mild interstitial coarsening. Athe rosclerosis of the aorta. No pneumothorax. Layering pleural effusions with bibasilar consolidation. IMPRESSION: 1. Cardiomegaly with mild interstitial pulmonary edema. 2. Layering pleural effusions with bibasilar opacities favoring atelectasis. Pneumonia considered les s likely. ACT 112: Negative or not required by law. The above report was generated using voice recognition software. It may contain grammatical, syntax o r spelling errors. Electronically signed by: Felix Smallwood M.D. 10/14/2025 10:23 AM
[2025-10-14 10:43] LABS: Alanine Aminotransferase 21 U/L (7-52); Albumin Globulin Ratio 0.9 (0.9-2); Albumin Level 3.7 gm/dl (3.4-5.0); Alkaline Phosphatase 51 U/L (34-104); Anion Gap 8 (3-11); Bilirubin,Total 0.6 mg/dl (0.2-1.0); Blood Urea Nitrogen 13 mg/dl (6-23); Calcium 9.0 mg/dl (8.6-10.3); Carbon Dioxide 27 mmol/L (21-32); Chloride 93 mmol/L (98-107); Globulin 4.2 gm/dl (2.5-4.0); Glucose 103 mg/dl (70-99(Fasting)); Magnesium 1.6 mg/dl (1.7-2.4); Potassium 4.3 mmol/L (3.5-5.1); Sodium 128 mmol/L (136-145); Total Protein 7.9 gm/dl (6.0-8.3)
[2025-10-14 10:45] LABS: Base Excess VBG 3.2 mEq/L; HCO3 VBG 28 mmol/L; Oxygen Saturation VBG 83.0 %; PCO2 VBG 42 mmHg (38-50); PO2 VBG 49 mmHg; pH VBG 7.43 (7.36-7.41)
[2025-10-14 10:48] LABS: INR 1.0 (0.9-1.1); Partial Thromboplastin Time 26 Seconds (21-31); Prothrombin Time 10.2 Seconds (9.0-12.0)
--- NOTE | 2025-10-14 11:08 | Electrocardiogram Report ---
Test Reason : Blood Pressure : */* mmHG Vent. Rate : 97 BPM Atrial Rate : 97 BPM P-R Int : 174 ms QRS Dur : 84 ms QT Int : 334 ms P-R-T Axes : 59 24 32 degrees QTcB Int : 424 ms Normal sinus rhythm Poor R wave progression, consider anterior RI vs. lead placement vs. LVH Abnormal ECG When compared with ECG of 06-Jun-2023 09:33, Aberrant conduction is no longer Present Confirmed by Uri Cannon ([id number]) on 10/14/2025 11:08:24 AM Referred By: Confirmed By: Uri Cannon
[2025-10-14] MEDS: MAGNESIUM SULFATE / D5W 1 GM/100 ML BAG IV SCH (11:32)
[2025-10-14] MEDS: NITROGLYCERIN 2% OINTMENT 30GM TUBE EXT ONE ×2 (11:43→18:33)
[2025-10-14] MEDS: ATENOLOL 50 MG TABLET PO ONE (11:47)
--- NOTE | 2025-10-14 11:48 | History & Physical Report ---
Date of Service October 14, 2025 Assessment & Plan (1) Acute hypoxic respiratory failure: (2) Elevated hemidiaphragm: (3) Pulmonary fibrosis: (4) Restrictive lung disease: (5) Morbid obesity with BMI of 40.0-44.9, adult: (6) SIADH (syndrome of inappropriate ADH production): (7) Hypothyroidism: (8) Hyponatremia: (9) Hyperlipidemia: (10) Hypertension: (11) GERD (gastroesophageal reflux disease): Plan 84yo female with severe restrictive lung disease, right sided hemidiaphragm elevation, night-time NC O2 use, 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 Both she & her are poor historians but it sounds like her dyspnea has gotten worse in the last 2-3 weeks. She typically does not use NC O2 during the daytim e but at some point in the last week she began to use it during the daytime due to the dyspnea. #acute hypoxic respiratory failure - -differential - acute HFpEF vs pulmonary fibrosis exacerbation; can't exclude acute PE, can't exclude an infectious process but less likely -s/p IV lasix in ER -s/p IV solumedrol 60mg IV x 1 in ER -s/p bronchodilators in ER -will reassess pt's response to the lasix later today -defer on additional steroids for now -consider dedicated CT chest to r/o PE, pneumonia, etc. -will check dopplers of legs first given her LE edema - r/o DVT #suspected acute HFpEF - -does have significant edema of LEs along with pulmonary edema on chest x-ray today -s/p lasix IV in ER; will assess response to such as the day goes on -check echo -needs better BP control which could be contributing to the acute HF #chronic hyponatremia 2nd to chronic SIADH - -fluid restrict to 1500ml/day -may need salt tablets or urea -repeat BMP tonight to ensure stability of Na level -then BMP am tomorrow -TSH was 2.3 in May 2025 #severe restrictive lung disease - -as seen on PFTs 05/06/25 -sees Dr Laws in pulmonary clinic -his notes also state she has element of pulmonary fibrosis - possibly due to prior radiation therapy for her right-sided breast cancer -does have mild kyphosis which can contribute to restriction -right-sided hemidiaphragm elevation will contribute to restriction -no significant obstruction on PFTs but she reports improvement in breathing with long-acting albuterol and pulmicort - thus, continue both -consider repeat CT chest while here - see discussion above #uncontrolled HTN - -a review of her record shows 75% or more of her BPs over the years as high, 150-170 is typical -2nd to noncompliance with meds? -white coat component? -simply under-treated? -resumed her atenolol -resumed her lisinopril -added nitropaste 1/2 inch x 1 -follow BPs #hypothyroidism - -TSH 05/2025 wnl -cont synthroid #hypomagnesemia - mild - -s/p IV mag sulfate in ER -repeat mag level later today #recent aerococcus UTI - -cont macrobid -plan 5 days in total then stop #hyperlipidemia - -cont statin #mental health, sleep, etc - -cont effexor -cont trazodone -melatonin prn #DVT proph - -if no DVT on dopplers then heparin 5000 TID of note -- I noticed during my admission assessment that both the patient & her were very poor historians with poor recall responses were vague, often stating that things had been going on "a while" she could not remember specific details like medicines, etc. 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 Both she & her are poor historians but it sounds like her dyspnea has gotten worse in the last 2-3 weeks. She typically does not use NC O2 during the daytime but at some point in the last week she began to use it during the daytime due to the dyspnea. Denies orthopnea or PND. Denies abdominal swelling. Denies edema of legs. She does not think her weight has changed but she isn't sure. Does have cough with thick white sputum ("it's in my throat"). No fevers. Appetite has been poor "for a while." During my ER assessment she had visible tachypnea with labored breathing (mild retractions). She admitted that when she ambulated to the bathroom while in the ER she got very short of breath. With respect to lasix use she reported that she has not been taking such at home. Allergies Allergy/AdvReac Type Severity Reaction Status Date / Time Sulfa (Sulfonamide Allergy Severe Anaphylaxis Verified 07/15/25 08:27 Antibiotics) Penicillins Allergy Intermediate RASH Verified 07/15/25 08:27 fosfomycin AdvReac Mild Nausea Verified 07/15/25 08:27 Home Medications Medication Instructions Recorded Confirmed Type aspirin 81 mg chewable tablet 81 mg PO QPM 09/28/18 10/14/25 History zfsyulee-tmn-hqeir acid 0.4 1 tab PO DAILY 06/07/19 10/14/25 History mg-lycopene 300 mcg-lutein 250 mcg tablet (Centrum Silver) acetaminophen 500 mg tablet 500 mg PO DIRECTED PRN fever or 10/17/19 10/14/25 History pain calcium carbonate (Calcium 600) 600 mg PO DAILY 04/25/23 10/14/25 History cranberry fruit concentrate 250 mg 250 mg PO TID 10/21/24 10/14/25 History chewable tablet (Azo Cranberry) fluticasone propionate 50 2 spray intranasal DAILY #16 grams 12/20/24 10/14/25 Rx mcg/actuation nasal spray,suspension atenolol 50 mg tablet 50 mg PO DAILY #90 tabs 01/11/25 10/14/25 Rx Oxygen Home #1 ea 05/29/25 07/15/25 Rx cyanocobalamin (vitamin B-12) 1,000 mcg PO DAILY #90 tabs 05/29/25 10/14/25 Rx 1,000 mcg tablet furosemide 20 mg tablet (Lasix) 20 mg PO DAILY PRN edema of legs 05/29/25 10/14/25 Rx #20 tabs levothyroxine 25 mcg tablet 37.5 mcg (1.5 x 25 mcg) PO HS #135 05/29/25 10/14/25 Rx tabs lisinopril 10 mg tablet 10 mg PO DAILY #90 tabs 06/17/25 10/14/25 Rx potassium chloride 20 mEq 20 meq PO DAILY #90 tabs 06/24/25 10/14/25 Rx tablet,extended release venlafaxine 75 mg capsule,extended 75 mg PO DAILY #90 caps 06/24/25 10/14/25 Rx release 24 hr budesonide 1 mg/2 mL suspension 1 mg (2 mL) inhalation BID #120 mL 07/14/2504/03 Rx for nebulization arformoterol 15 mcg/2 mL solution 15 mcg (2 mL) inhalation BID #120 07/26/25 10/14/25 Rx for nebulization mL simvastatin 20 mg tablet 20 mg PO HS #90 tabs 08/09/25 10/14/25 Rx trazodone 50 mg tablet 75 mg (1.5 x 50 mg) PO HS #90 tabs 08/23/25 10/14/25 Rx methenamine hippurate 1 gram tablet 1 g PO BID #180 tabs 10/12/25 10/14/25 Rx nitrofurantoin 100 mg PO Q12H 5 days #10 caps 10/12/25 10/14/25 Rx monohydrate/macrocrystals 100 mg capsule (Macrobid) ketoconazole 2 % topical cream 0 applic topical BID 10/14/25 10/14/25 History Past Med/Surg History Problem List (Updated 10/14/25 @ 18:03 by Himanshu Davidson MD) GERD (gastroesophageal reflux disease) Acute hypoxic respiratory failure (Acute) Hypersomnia Short of breath on exertion Hiatal hernia Pulmonary fibrosis Abnormal chest CT Elevated hemidiaphragm Perineal irritation in female Recurrent UTI Morbid obesity with BMI of 40.0-44.9, adult Chronic hypoxic respiratory failure Anemia (Acute) SIADH (syndrome of inappropriate ADH production) History of ESBL E. coli infection Leg weakness, bilateral Hypothyroidism (Chronic) Hyponatremia (Chronic) Insomnia (Chronic) Hyperlipidemia (Chronic) Hypertension (Chronic) Restrictive lung disease (Chronic) Osteoporosis (Chronic) Hypoxia (Chronic) Dyspnea on exertion (Chronic) Depression with anxiety (Chronic) Constipation (Chronic) Medical History Chronic reflux esophagitis Anxiety disorder Osteoarthritis Cancer RT BREAST CANCER (RADIATION) Hearing deficit Lumbar compression fracture Hypernatremia Surgical History History of dilatation and curettage History of back surgery LUMBAR SURGERY (NO HARDWARE) History of total knee replacement RT History of esophagogastroduodenoscopy (EGD) History of colonoscopy (~2018) History of herniorrhaphy X2 History of cholecystectomy Hx of lumpectomy RT BREAST History of tooth extraction History of cataract surgery RT/LEFT History of appendectomy Family History Brother Family history of diabetes mellitus Sister Family hx of colon cancer Breast cancer Colorectal cancer Mother Myocardial infarction Denies family history of Ovarian cancer Prostate cancer Social History Smoking Status: Former smoker Tobacco Type: Cigarettes Age Started Using Tobacco: 17; Age Quit Using Tobacco: 48; packs per day: 0.5; Cigarettes Per Day: QUIT 1988; Second Hand Exposure: No; Do You Dip or Chew Tobacco: No; Hx Alcohol Use: No Hx Substance Use: No Preferred Language: Kazakh Communication Ability: Effective Visual Impairment: Limited Hearing Ability: Normal Parquetry Floor Layer Required: No Beliefs That Will Affect Care: None marital status: Current Living Situation: Spouse current occupational status: retired How many Children do You have: 3 Feels Safe at Home: Yes Safety Concerns: Feels Safe At This Time Childhood Exposure to Second-Hand Smoke: Yes Diet: regular caffeine: No during the past year weight has: remained stable Dental Care, Regularly: No Physical Activity Frequency: Does not Exercise Seatbelt Use: always Sunscreen Use: No (Sometimes. ) Do you think of yourself as: straight/heterosexual Sexual Activity: has been sexually active, but not for at least 12 months Gender Identity: Female Assistive Devices: Denture - Upper, Denture - Lower, Oxygen - at Night and Walker Review of Systems Review of Systems: gen - no weight change; per her appetite has been poor "for a while"; no fevers or chills eyes - no ocular complaints HENT - no sore throat, no ear pain, no runny nose CV - no chest pain or chest tightness; LE edema+; no PND or orthopnea pulm - dyspnea at rest, dyspnea with exertion, some cough; when she does cough she has thick white sputum in her throat GI - no abd pain or nausea/emesis; no blood in stool - no hematuria, no dysuria (despite recent UTI) musculo - denies any myalgias neuro - no headache, no focal motor weakness skin - no rash endo - no diabetes Physical Exam Physical Exam: gen - tachypneic, mild retractions, looks dyspneic, obese, awake/alert eyes - PERRL HENT - MMM, no lesions, no thrush neck - suspected JVD; no lymph nodes heart - tachy, s1 s2, no murmur, regular rhythm lungs - decreased BS R base, about 1/3-1/2 [address] up back; faint rales b/l; no wheezing; increased work of breathing as noted above abd - soft NT ND BS+; no HSM; +hepatojugular reflex ext - 2+ edema feet to knees b/l; pulses b/l feet 2+ psych - seems mildly confused/poor historian, awake/alert skin - no rash neuro - strength 5/5 x 4 exts Results & Data Results & Data Vital Signs (Past 12 Hours) Vital Signs Temp Pulse Resp BP Pulse Ox O2 Del Method O2 Flow Rate 10/14/25 11:00 106 H 25 H 155/96 H 97 Nasal Cannula 2 10/14/25 10:15 105 H 10/14/25 09:04 87 18 95 Nasal Cannula 2 10/14/25 09:04 Nasal Cannula 2 10/14/25 09:02 36.6 C 100 H 26 H 180/101 H 95 Nasal Cannula 2 10/14/25 08:56 Room Air 2 Laboratory Results Laboratory Results - last 24 hr 10/14/25 10/14/25 10/14/25 09:15 09:58 10:30 WBC 11.19 H RBC 4.00 L Hgb 13.0 Hct 38.8 MCV 97.0 MCH 32.5 MCHC 33.5 RDW Std Deviation 45.2 RDW Coeff of Jannie 12.7 Plt Count 282 MPV 9.7 Immature Gran % (Auto) 0.4 Neut % (Auto) 84.8 Lymph % (Auto) 6.6 [place] % (Auto) 7.5 Eos % (Auto) 0.2 Baso % (Auto) 0.5 Neut # (Auto) 9.49 H Lymph # (Auto) 0.74 L [place] # (Auto) 0.84 H Eos # (Auto) 0.02 Baso # (Auto) 0.06 Immature Gran # (Auto) 0.04 PT 10.2 INR 1.0 APTT 26 PTT Ratio 1.0 VBG pH 7.43 H VBG pCO2 42 VBG pO2 49 VBG HCO3 28 VBG O2 Saturation 83.0 VBG Base Excess 3.2 Sodium 128 L Potassium 4.3 Chloride 93 L Carbon Dioxide 27 Anion Gap 8 BUN 13 Creatinine 0.62 Est Cr Clr Drug Dosing Not Reportable eGFR 87.21 BUN/Creatinine Ratio 21.0 H Glucose 103 H Calcium 9.0 Magnesium 1.6 L Total Bilirubin 0.6 AST 26 ALT 21 Alkaline Phosphatase 51 Troponin I High Sens 5.4 Total Protein 7.9 Albumin 3.7 Globulin 4.2 H Albumin/Globulin Ratio 0.9 Urine Color Dark Yellow Urine Appearance Clear Urine pH 7.5 Ur Specific [place] 1.019 Urine Protein 1+ H Urine Glucose (UA) Negative Urine Ketones Negative Urine Blood Negative Urine Nitrite Negative Urine Bilirubin Negative Urine Urobilinogen Negative Ur Leukocyte Esterase Trace H Urine WBC (Auto) 0-5 Urine RBC (Auto) 0-2 U Hyaline Cast (Auto) 0-2 U Epithel Cells (Auto) 0-2 Urine Bacteria (Auto) None Seen Urine Comment Diagnostic Findings Chest X-Ray 10/14/25 09:54 XR chest 1V portable HISTORY: 84 years-old Female Dyspnea acute shortness of breath COMPARISON: Chest radiograph 08/09/2022 TECHNIQUE: AP view of the chest FINDINGS: Cardiac silhouette is enlarged. Pulmonary vascular congestion with mild inte rstitial coarsening. Atherosclerosis of the aorta. No pneumothorax. Layering pleural effusions with bibasilar consolidation. IMPRESSION: 1. Cardiomegaly with mild interstitial pulmonary edema. 2. Layering pleural effusions with bibasilar opacities favoring atelectasis. Pneumonia considered less likely. ACT 112: Negative or not required by law. The above report was generated using voice recognition software. It may contain grammatical, syntax or spelling errors. Electronically signed by: Felix Smallwood M.D. 10/14/2025 10:23 AM ECG Additional Comments: EKG - NSR, poor R wave progression, no ST changes Code Status & VTE Plan Code Status DNR/DNI PG Care Time/CCT Total # of Minutes Spent Total Time Spent with Patient: Total time spent is greater than 50% in coordination of care (as documented) at patient's floor/unit and/or counseling patient: Coding Level of Care Code 93518 INT INP/OBS CARE 3/75MIN Diagnoses Acute hypoxic respiratory failure J96.01 Elevated hemidiaphragm J98.6 Pulmonary fibrosis J84.10 Restrictive lung disease J98.4 Morbid obesity with BMI of 40.0-44.9, adult E66.01; Z68.41 SIADH (syndrome of inappropriate ADH production) E22.2 Acquired hypothyroidism E03.9 Hypothyroidism type: acquired Hyponatremia E87.1 Hyperlipidemia, unspecified hyperlipidemia type E78.5 Hyperlipidemia type: unspecified Essential hypertension I10 Hypertension type: essential hypertension GERD (gastroesophageal reflux disease) K21.9 (7) Hypothyroidism Hypothyroidism type: acquired Qualified Code(s): E03.9 - Hypothyroidism, unspecified (9) Hyperlipidemia Hyperlipidemia type: unspecified Qualified Code(s): E78.5 - Hyperlipidemia, unspecified (10) Hypertension Hypertension type: essential hypertension Qualified Code(s): I10 - Essential (primary) hypertension
[2025-10-14] MEDS: FUROSEMIDE INJ 20 MG/2 ML VIAL IV ONE (12:17)
--- NOTE | 2025-10-14 13:58 | Ultrasound Report ---
BILATERAL LOWER EXTREMITY VENOUS DOPPLER CLINICAL HISTORY: Bilateral lower extremity edema. Dyspnea. Evaluate for deep venous thrombus. COMPARISON STUDY: No previous studies for comparison. TECHNIQUE: Sonography of the deep venous system of the bilateral lower extremities was performed. Co mpression and augmentation were evaluated. FINDINGS: The bilateral common femoral, superficial femoral and popliteal veins were compressible. A ugmentation was normal. Flow was shown within the deep calf vessels although calf vessels were subopt imally assessed. IMPRESSION: Suboptimal visualization of the calf vessels but no evidence of deep venous thrombus with in the bilateral lower extremities. ACT 112: Negative or not required by law. Electronically signed by: Marc Hoover M.D. 10/14/2025 1:56 PM
--- NOTE | 2025-10-14 15:22 | XCELERA ---
[id number]
[2025-10-14 15:48] LABS: Chlamydia pneumoniae PCR Not Detected (NotDetected); Coronavirus 229E PCR Not Detected (NotDetected); Coronavirus CoV-2 (COVID19)PCR Not Detected (NotDetected); Coronavirus HKU1 PCR Not Detected (NotDetected); Coronavirus NL63 PCR Not Detected (NotDetected); Coronavirus OC43PCR Not Detected (NotDetected); Human Metapneumovirus PCR Not Detected (NotDetected); Parainfluenza Virus 1 PCR Not Detected (NotDetected); Parainfluenza Virus 2 PCR Not Detected (NotDetected); Parainfluenza Virus 3 PCR Not Detected (NotDetected); Parainfluenza Virus 4 PCR Not Detected (NotDetected); Respiratory Syncytial VirusPCR Not Detected (NotDetected); Rhinovirus/Enterovirus PCR Not Detected (NotDetected)
[2025-10-14] MEDS ORDERED: ACETAMINOPHEN 500 MG TAB PO PRN (16:39)
[2025-10-14] MEDS ORDERED: ONDANSETRON INJ 2 MG/ML 2 ML VIAL IV PRN (16:39)
[2025-10-14] MEDS: NITROFURANTOIN MONOHYDRATE 100 MG CAP PO SCH (18:37)
[2025-10-14 19:21] LABS: Anion Gap 11.0 (3-11); Blood Urea Nitrogen 12.0 mg/dl (6-23); Calcium 8.7 mg/dl (8.6-10.3); Carbon Dioxide 24.0 mmol/L (21-32); Chloride 90.0 mmol/L (98-107); Creatinine Clr Calc Pharmacy 72.8 ml/min; Glucose 164.0 mg/dl (70-99(Fasting)); Magnesium 2.0 mg/dl (1.7-2.4); Potassium 4.2 mmol/L (3.5-5.1); Sodium 125.0 mmol/L (136-145)
[2025-10-14] MEDS: BUDESONIDE 0.5 MG/2 ML VIAL (PULMICORT) INH SCH (19:51)
[2025-10-14] MEDS: FORMOTEROL 20 MCG/2 ML VIAL NEB SCH (19:51)
[2025-10-14] MEDS: SODIUM CHLORIDE 1 GM TABLET PO SCH (20:27)
[2025-10-14] MEDS: ASPIRIN 81 MG CHEW PO SCH (20:28)
[2025-10-14] MEDS: guaiFENesin 600 MG TABCR PO SCH (20:28)
[2025-10-14] MEDS: LEVOTHYROXINE SODIUM 25 MCG TABLET PO SCH (20:29)
[2025-10-14] MEDS: SIMVASTATIN 20 MG TAB PO SCH (20:31)
[2025-10-14] MEDS: MELATONIN 3 MG TAB PO PRN (20:34)
[2025-10-14] MEDS: HEPARIN SOD 5,000 UNIT/0.5 ML VIAL SQ SCH (22:28)
[2025-10-15 07:37] LABS: Anion Gap 9 (3-11); Blood Urea Nitrogen 18 mg/dl (6-23); Calcium 8.5 mg/dl (8.6-10.3); Carbon Dioxide 26 mmol/L (21-32); Chloride 90 mmol/L (98-107); Creatinine Clr Calc Pharmacy 50.5 ml/min; Glucose 94 mg/dl (70-99(Fasting)); Sodium 125 mmol/L (136-145)
[2025-10-15 08:08] LABS: Hemoglobin A1C 5.5 % (4.5-5.6)
[2025-10-15] MEDS: ATENOLOL 50 MG TABLET PO SCH (08:11)
[2025-10-15] MEDS: POTASSIUM CHLORIDE CRTAB 20 MEQ TABCR PO SCH (08:11)
[2025-10-15] MEDS: CYANOCOBALAMIN (B-12) 500 MCG TABLET PO SCH (08:11)
[2025-10-15] MEDS: FLUTICASONE PROPIONATE NA SPR 16 GM BTL SCH (08:11)
[2025-10-15] MEDS: CALCIUM CARBONATE 500 MG CHEWABLE TAB PO SCH (08:12)
[2025-10-15] MEDS: SODIUM CHLORIDE 1 GM TABLET PO SCH (08:12)
[2025-10-15] MEDS: CEROVITE ADV FORMULA TAB PO SCH (08:12)
[2025-10-15] MEDS: VENLAFAXINE HCL XR 75 MG CAPXR PO SCH (08:12)
--- NOTE | 2025-10-15 11:46 | Hospitalist Progress Note ---
Date of Service October 15, 2025 Assessment & Plan (1) Acute hypoxic respiratory failure: (2) Elevated hemidiaphragm: (3) Pulmonary fibrosis: (4) Restrictive lung disease: (5) Morbid obesity with BMI of 40.0-44.9, adult: (6) SIADH (syndrome of inappropriate ADH production): (7) Hypothyroidism: (8) Hyponatremia: (9) Hyperlipidemia: (10) Hypertension: (11) GERD (gastroesophageal reflux disease): Plan 84yo female with severe restrictive lung disease, right sided hemidiaphragm elevation, night-time NC O2 use, 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 Both she & her are poor historians but it sounds like her dyspnea has gotten worse in the last 2-3 weeks. She typically does not use NC O2 during the daytim e but at some point in the last week she began to use it during the daytime due to the dyspnea. #acute hypoxic respiratory failure - much improved - -differential - acute HFpEF vs pulmonary fibrosis exacerbation vs both -s/p IV lasix in ER; will give additional lasix today -s/p IV solumedrol 60mg IV x 1 in ER; will resume solumedrol 30mg IV BID -s/p bronchodilators in ER; continue such -consider dedicated CT chest to r/o PE, pneumonia, etc. if she worsens -dopplers of legs negative for DVT #acute HFpEF - -s/p lasix IV in ER with improved resp status overnight -echo with preserved EF -give additional lasix today #chronic hyponatremia 2nd to chronic SIADH - -fluid restrict to 1500ml/day -increase salt tablets to 1gm BID -repeat BMP this afternoon then again in am -TSH was 2.3 in May 2025 #severe restrictive lung disease - -as seen on PFTs 05/06/25 -sees Dr Laws in pulmonary clinic -his notes also state she has element of pulmonary fibrosis - possibly due to prior radiation therapy for her right-sided breast cancer -does have mild kyphosis which can contribute to restriction -right-sided hemidiaphragm elevation will contribute to restriction -no significant obstruction on PFTs but she reports improvement in breathing with long-acting albuterol and pulmicort - thus, continue both (and she is wheezing today) -consider repeat CT chest while here - see discussion above #uncontrolled HTN - -a review of her record shows 75% or more of her BPs over the years as high, 150-170 is typical -2nd to noncompliance with meds? -white coat component? -simply under-treated? -cont atenolol - may need titration -cont lisinopril #hypothyroidism - -TSH 05/2025 wnl -cont synthroid #hypomagnesemia - mild - -s/p IV mag sulfate with normal level #recent aerococcus UTI - -cont macrobid -plan 5 days in total then stop #hyperlipidemia - -cont statin #mental health, sleep, etc - -cont effexor -cont trazodone -melatonin prn #DVT proph - -heparin 5000 TID PT/OT family updated at bedside today Admission and Anticipated Discharge Date Admission Date: October 14, 2025 Subjective feels getter today some cough, some wheezing - but dyspnea much improved excellent appetite asks when she can go home she asks about what "we can do about my bowels" I showed her a stool chart and asked her to point to what consistency her bowels are usually at home she fluctuates between balls and semi-solid stool; typically not liquid stool color of stool is "yellow" she does not have a gall bladder Review of Systems Review of Systems: gen - no fevers or chills cv - no chest pain pulm - no sputum GI - no N/V Physical Exam Physical Exam: gen - looks much better today; NAD; no resp distress; HENT - MMM neck - still with suspected JVD heart - RRR, s1 s2, no murmur lungs - decreased BS R base, b/l wheezing; no increased work of breathing; some rales bases abd - soft NT ND BS+; no HSM ext - <1+ edema legs b/l; pulses b/l feet 2+ Results & Data Results & Data Vital Signs (Past 12 Hours) Vital Signs Temp Pulse Pulse Resp BP Pulse Ox O2 Del Method 10/15/25 07:53 36.4 C L 77 21 135/76 93 Nasal Cannula 10/15/25 07:30 85 10/15/25 07:16 81 20 93 Nasal Cannula 10/15/25 02:27 37.5 C 88 20 121/68 99 Nasal Cannula O2 Flow Rate 10/15/25 07:53 2 10/15/25 07:30 10/15/25 07:16 2 10/15/25 02:27 2 Laboratory Results Laboratory Results - last 24 hr 10/14/25 10/14/25 10/15/25 14:34 18:14 05:00 Sodium 125 L Potassium 4.2 Chloride 90 L Carbon Dioxide 24 Anion Gap 11 BUN 12 Creatinine 0.64 Est Cr Clr Drug Dosing 72.8 eGFR 86.55 BUN/Creatinine Ratio 18.8 Glucose 164 H Estimat Average Glucose Hemoglobin A1c Calcium 8.7 Magnesium 2.0 TSH Urine Osmolality 799 Ur Random Sodium 209 Adenovirus (PCR) Not Detected B. pertussis DNA (PCR) Not Detected B.parapertussis DNA PCR Not Detected C. pneumoniae DNA (PCR) Not Detected Coronavirus OC43 (PCR) Not Detected Coronavirus HKU1 (PCR) Not Detected Coronavirus 229E (PCR) Not Detected SARS-CoV-2 (PCR) Not Detected Coronavirus NL63 (PCR) Not Detected Human Metapneumovir PCR Not Detected Influenza Type A (PCR) Not Detected Influenza Type B (PCR) Not Detected M. pneumoniae (PCR) Not Detected Parainfluenza 1 (PCR) Not Detected Parainfluenza 2 (PCR) Not Detected Parainfluenza 3 (PCR) Not Detected Parainfluenza 4 (PCR) Not Detected RSV (PCR) Not Detected Entero/Rhino (PCR) Not Detected 10/15/25 10/15/25 06:04 07:47 Sodium 125 L Potassium TNP 3.7 Chloride 90 L Carbon Dioxide 26 Anion Gap 9 BUN 18 Creatinine 0.83 Est Cr Clr Drug Dosing 50.5 eGFR 69.04 BUN/Creatinine Ratio 21.7 H Glucose 94 Estimat Average Glucose 111 Hemoglobin A1c 5.5 Calcium 8.5 L Magnesium TSH 2.277 Urine Osmolality Ur Random Sodium Adenovirus (PCR) B. pertussis DNA (PCR) B.parapertussis DNA PCR C. pneumoniae DNA (PCR) Coronavirus OC43 (PCR) Coronavirus HKU1 (PCR) Coronavirus 229E (PCR) SARS-CoV-2 (PCR) Coronavirus NL63 (PCR) Human Metapneumovir PCR Influenza Type A (PCR) Influenza Type B (PCR) M. pneumoniae (PCR) Parainfluenza 1 (PCR) Parainfluenza 2 (PCR) Parainfluenza 3 (PCR) Parainfluenza 4 (PCR) RSV (PCR) Entero/Rhino (PCR) PG Care Time/CCT Total # of Minutes Spent Total Time Spent with Patient: Total time spent is greater than 50% in coordination of care (as documented) at patient's floor/unit and/or counseling patient: Coding Level of Care Code 81572 SUB INP/OBS CARE 3/50MIN Diagnoses Acute hypoxic respiratory failure J96.01 Elevated hemidiaphragm J98.6 Pulmonary fibrosis J84.10 Restrictive lung disease J98.4 Morbid obesity with BMI of 40.0-44.9, adult E66.01; Z68.41 SIADH (syndrome of inappropriate ADH production) E22.2 Acquired hypothyroidism E03.9 Hypothyroidism type: acquired Hyponatremia E87.1 Hyperlipidemia, unspecified hyperlipidemia type E78.5 Hyperlipidemia type: unspecified Essential hypertension I10 Hypertension type: essential hypertension GERD (gastroesophageal reflux disease) K21.9 (7) Hypothyroidism Hypothyroidism type: acquired Qualified Code(s): E03.9 - Hypothyroidism, unspecified (9) Hyperlipidemia Hyperlipidemia type: unspecified Qualified Code(s): E78.5 - Hyperlipidemia, unspecified (10) Hypertension Hypertension type: essential hypertension Qualified Code(s): I10 - Essential (primary) hypertension
--- NOTE | 2025-10-15 12:26 | XRay Report ---
XR chest 2V PA/lateral HISTORY: 84 years-old Female b/l wheezing, ?CHF? Acute shortness of breath COMPARISON: 10/14/2025 TECHNIQUE: AP view of the chest FINDINGS: Cardiac silhouette is enlarged. Pulmonary vascular congestion with mild interstitial coarsening uncha nged. Hiatal hernia. Atherosclerosis of the aorta. No pneumothorax. Layering pleural effusions with b ibasilar consolidation. IMPRESSION: 1. Cardiomegaly with unchanged appearance of the mild interstitial pulmonary edema. 2. Layering pleural effusions with persistent bibasilar opacities which may represent atelectasis ghulam dewayne pneumonitis. 3. Hiatal hernia. ACT 112: Negative or not required by law. The above report was generated using voice recognition software. It may contain grammatical, syntax o r spelling errors. Electronically signed by: Felix Smallwood M.D. 10/15/2025 12:25 PM
[2025-10-15] MEDS: CALCIUM POLYCARBOPHIL 625MG TAB PO SCH (13:20)
[2025-10-15] MEDS: FUROSEMIDE 20 MG TAB PO SCH (13:20)
[2025-10-15 15:16] LABS: Anion Gap 8.0 (3-11); Blood Urea Nitrogen 23.0 mg/dl (6-23); Calcium 8.9 mg/dl (8.6-10.3); Carbon Dioxide 28.0 mmol/L (21-32); Chloride 91.0 mmol/L (98-107); Creatinine Clr Calc Pharmacy 50.5 ml/min; Glucose 94.0 mg/dl (70-99(Fasting)); Potassium 4.5 mmol/L (3.5-5.1); Sodium 127.0 mmol/L (136-145)
[2025-10-15] MEDS: FUROSEMIDE 20 MG TAB PO ONE (16:49)
[2025-10-16 06:15] LABS: Anion Gap 8.0 (3-11); Blood Urea Nitrogen 26.0 mg/dl (6-23); Calcium 8.9 mg/dl (8.6-10.3); Carbon Dioxide 28.0 mmol/L (21-32); Chloride 93.0 mmol/L (98-107); Creatinine Clr Calc Pharmacy 63.8 ml/min; Glucose 117.0 mg/dl (70-99(Fasting)); Potassium 4.9 mmol/L (3.5-5.1); Sodium 129.0 mmol/L (136-145)
[2025-10-16] MEDS: ATENOLOL 25 MG TABLET PO SCH (09:08)
[2025-10-16] MEDS: FUROSEMIDE INJ 20 MG/2 ML VIAL IV ONE (09:08)
--- NOTE | 2025-10-16 15:09 | Hospitalist Progress Note ---
Date of Service October 16, 2025 Assessment & Plan (1) Acute hypoxic respiratory failure: (2) Elevated hemidiaphragm: (3) Pulmonary fibrosis: (4) Restrictive lung disease: (5) Morbid obesity with BMI of 40.0-44.9, adult: (6) SIADH (syndrome of inappropriate ADH production): (7) Hypothyroidism: (8) Hyponatremia: (9) Hyperlipidemia: (10) Hypertension: (11) GERD (gastroesophageal reflux disease): Plan 84yo female with severe restrictive lung disease, right sided hemidiaphragm elevation, night-time NC O2 use, 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 Both she & her are poor historians but it sounds like her dyspnea has gotten worse in the last 2-3 weeks. She typically does not use NC O2 during the daytim e but at some point in the last week she began to use it during the daytime due to the dyspnea. #acute hypoxic respiratory failure - much improved, but still quite wheezy & coughing - -differential thought to be either acute HFpEF vs pulmonary fibrosis exacerbation vs both -s/p IV lasix since admission with good diuresis -s/p IV solumedrol 60mg IV x 1 in ER then solumedrol 30mg IV BID since then -s/p bronchodilators in ER; remains on such -dopplers of legs negative for DVT -CT chest non-con obtained today due to persistent cough/wheezing (although prior PFTs did NOT show obstructive lung disease) - -no pulm edema -some PF right lung -hemidiaphragm elevation -diffuse atelectasis b/l? -will ask pulmonary to weigh in on Friday -cont steroids, cont IV lasix #acute HFpEF - -has received IV lasix since admission with good diuresis since that time -echo with preserved EF -give lasix x 2 doses today and re-eval tomorrow -CT chest findings noted #chronic hyponatremia 2nd to chronic SIADH - -fluid restrict to 1500ml/day -cont salt tablets 1gm BID -TSH was 2.3 in May 2025 -Na level stable today at 129 #severe restrictive lung disease - -as seen on PFTs 05/06/25 -sees Dr Laws in pulmonary clinic -his notes also state she has element of pulmonary fibrosis - possibly due to prior radiation therapy for her right-sided breast cancer -does have mild kyphosis which can contribute to restriction -right-sided hemidiaphragm elevation will contribute to restriction -no significant obstruction on PFTs but she reports improvement in breathing with long-acting albuterol and pulmicort - thus, continue both -she continues to wheeze on exam today - wheezing due to pulmonary edema? wheezing due to bronchitis from infectious process? (although biofire was negative) other? -CT chest findings noted -will ask pulmonary to see in consult while here #uncontrolled HTN - -a review of her record shows 75% or more of her BPs over the years as high, 150-170 is typical -2nd to noncompliance with meds? -white coat component? -simply under-treated? -cont atenolol but increase to 75mg daily -cont lisinopril #hypothyroidism - -TSH 2.2 this admission -cont synthroid #hypomagnesemia - mild - -s/p IV mag sulfate with normal level #recent aerococcus UTI - -cont macrobid -plan 5 days in total then stop -day #3 today #hyperlipidemia - -cont statin #mental health, sleep, etc - -cont effexor -cont trazodone -melatonin prn #DVT proph - -heparin 5000 TID PT/OT --seen by PT today - they feel she can return home at d/c family updated at bedside again today will need formal 2-step upon d/c home Admission and Anticipated Discharge Date Admission Date: October 14, 2025 Subjective still coughing and still wheezy dyspnea much improved she is ambulating to the toilet and back to bed states BOWMAN is better eating 100% of meals asks when she can leave the hospital no stool accidents or issues since starting fiber tele wnl overnight Review of Systems Review of Systems: gen - no fevers or chills cv - no chest pain GI - no abd pain or N/V pulm - no significant sputum Physical Exam Physical Exam: gen - looks well, in good spirits, coughing at times during the visit; did get short of breath with moving around in the bed HENT - MMM neck - mild JVD but improved heart - RRR, s1 s2, no murmur lungs - b/l wheezing with rales; no increased work of breathing; coughing abd - soft NT ND BS+; no HSM ext - no edema legs b/l; pulses b/l feet 2+ Results & Data Results & Data Vital Signs (Past 12 Hours) Vital Signs Temp Pulse Pulse Resp BP Pulse Ox O2 Del Method 10/16/25 14:49 95 10/16/25 11:01 36.6 C 66 126/69 97 Nasal Cannula 10/16/25 07:59 36.6 C 92 H 19 157/76 H 96 Nasal Cannula 10/16/25 07:32 96 H 22 95 Nasal Cannula 10/16/25 07:00 Nasal Cannula 10/16/25 04:24 36.7 C 92 H 18 164/80 H 90 Nasal Cannula O2 Flow Rate 10/16/25 14:49 10/16/25 11:01 10/16/25 07:59 3 10/16/25 07:32 3 10/16/25 07:00 3 10/16/25 04:24 3 Laboratory Results Laboratory Results - last 48 hr 10/15/25 10/15/25 10/15/25 06:04 07:47 14:22 Sodium 127 L Potassium 3.7 4.5 D Chloride 91 L Carbon Dioxide 28 Anion Gap 8 BUN 23 Creatinine 0.83 Est Cr Clr Drug Dosing 50.5 eGFR 69.04 BUN/Creatinine Ratio 27.7 H Glucose 94 Calcium 8.9 TSH 2.277 10/16/25 05:31 Sodium 129 L Potassium 4.9 Chloride 93 L Carbon Dioxide 28 Anion Gap 8 BUN 26 H Creatinine 0.66 Est Cr Clr Drug Dosing 63.8 eGFR 85.91 BUN/Creatinine Ratio 39.4 H Glucose 117 H Calcium 8.[address] 10/16/25 15:05 CT chest without contrast History: Hypoxia Comparison: 05/26/2025 Technique: Helical CT imaging of the chest performed without IV contrast Dose reduction techniques were achieved by using automatic exposure control and/or adjustment of mA and/or kV according to patient size and/or use of iterative reconstruction technique. Findings: No focal consolidation. Prominent thickened bands of atelectasis throughout the perihilar regions, especially the right middle lobe, lingula and left lower lobe. There is some asymmetric elevation of the left hemidiaphragm with subjacent atelectasis. No pleural effusion. No pneumothorax. Heart size is enlarged. The thoracic aorta is normal in size. The pulmonary artery is enlarged in size. No significant pericardial effusion. No suspicious lymphadenopathy in the chest. The central airway is clear. Limited visualized upper abdomen. Moderate hiatal hernia. No acute bony abnormalities. Impression: Extensive bilateral perihilar atelectasis. No pulmonary edema. Small area of reticular fibrosis at the subpleural right upper lobe. Cardiomegaly and enlarged pulmonary artery suggesting pulmonary hypertension. Moderate hiatal hernia. Elevated left hemidiaphragm may relate to paralysis or eventration. Electronically signed by Valentin Allan 10-16-2025 3:45 PM PG Care Time/CCT Total # of Minutes Spent Total Time Spent with Patient: Total time spent is greater than 50% in coordination of care (as documented) at patient's floor/unit and/or counseling patient: Coding Level of Care Code 02125 SUB INP/OBS CARE 3/50MIN Diagnoses Acute hypoxic respiratory failure J96.01 Elevated hemidiaphragm J98.6 Pulmonary fibrosis J84.10 Restrictive lung disease J98.4 Morbid obesity with BMI of 40.0-44.9, adult E66.01; Z68.41 SIADH (syndrome of inappropriate ADH production) E22.2 Acquired hypothyroidism E03.9 Hypothyroidism type: acquired Hyponatremia E87.1 Hyperlipidemia, unspecified hyperlipidemia type E78.5 Hyperlipidemia type: unspecified Essential hypertension I10 Hypertension type: essential hypertension GERD (gastroesophageal reflux disease) K21.9 (7) Hypothyroidism Hypothyroidism type: acquired Qualified Code(s): E03.9 - Hypothyroidism, unspecified (9) Hyperlipidemia Hyperlipidemia type: unspecified Qualified Code(s): E78.5 - Hyperlipidemia, unspecified (10) Hypertension Hypertension type: essential hypertension Qualified Code(s): I10 - Essential (primary) hypertension
--- NOTE | 2025-10-16 15:46 | CT Scan Report ---
CT chest without contrast History: Hypoxia Comparison: 05/26/2025 Technique: Helical CT imaging of the chest performed without IV contrast Dose reduction techniques were achieved by using automatic exposure control and/or adjustment of mA and/or kV according to patient size and/or use of iterative reconstruction technique. Findings: No focal consolidation. Prominent thickened bands of atelectasis throughout the perihilar regions, especially the right middle lobe, lingula and left lower lobe. There is some asymmetric elevation of the left hemidiaphragm with subjacent atelectasis. No pleural effusion. No pneumothorax. Heart size is enlarged. The thoracic aorta is normal in size. The pulmonary artery is enlarged in size. No significant pericardial effusion. No suspicious lymphadenopathy in the chest. The central airway is clear. Limited visualized upper abdomen. Moderate hiatal hernia. No acute bony abnormalities. Impression: Extensive bilateral perihilar atelectasis. No pulmonary edema. Small area of reticular fibrosis at the subpleural right upper lobe. Cardiomegaly and enlarged pulmonary artery suggesting pulmonary hypertension. Moderate hiatal hernia. Elevated left hemidiaphragm may relate to paralysis or eventration. Electronically signed by Valentin Allan 10-16-2025 3:45 PM
[2025-10-16] MEDS: FUROSEMIDE 40 MG/4 ML VIAL IV STA (18:50)
[2025-10-16] MEDS: CALCIUM CARBONATE 500 MG CHEWABLE TAB PO PRN (21:39)
[2025-10-17 07:38] LABS: Anion Gap 9.0 (3-11); Blood Urea Nitrogen 28.0 mg/dl (6-23); Calcium 8.7 mg/dl (8.6-10.3); Carbon Dioxide 29.0 mmol/L (21-32); Chloride 91.0 mmol/L (98-107); Creatinine Clr Calc Pharmacy 66.7 ml/min; Glucose 128.0 mg/dl (70-99(Fasting)); Magnesium 1.8 mg/dl (1.7-2.4); Potassium 4.3 mmol/L (3.5-5.1); Sodium 129.0 mmol/L (136-145)
--- NOTE | 2025-10-17 09:50 | Pulmonary Consultation ---
Date of Consultation October 17, 2025 Assessment & Plan (1) Acute bronchitis: Patient presenting essentially with acute bronchitis. Possible component of diastolic heart failure exacerbation as well. Will order respiratory viral panel and sputum cultures. Check urine Legionella antigen. Patient currently on nebulized budesonide and formoterol. Mucinex twice daily for mucociliary clearance. Patient also on methylprednisone 30 mg twice daily. Consider transitioning lisinopril to a different antihypertensive agent given her cough. Patient approaching her baseline and can likely be discharged in the next 1 to 2 days. Recommend transitioning to oral prednisone tomorrow. Will add azithromycin for 5 days. QTc is 424 ms (2) (HFpEF) heart failure with preserved ejection fraction: Agree with low-dose diuretics and checking daily weights. (3) Dyspnea: Dyspnea is multifactorial and acutely worse due to acute bronchitis. Obesity and chronic restrictive lung disease playing a role as well. VBG obtained 10/14/2025 without evidence of hypercapnia. Plan Thank you for the consult please call with questions. I personally spent 60 minutes on the date of service in activities related to this patient's encounter, including 30 minutes of counseling with patient regarding treatment plan and 20 minutes of clinical review of lab results and documentation. I did primary counselor the patient regarding their diagnosis and treatment plan and they expressed understanding. This note was dictated using voice recognition software and may include grammatical errors, extra words, word substitutions and other inaccuracies due to errors in the voice recognition software and differences in speech patterns. History of Present Illness Reason for Consultation: Acute/chronic hypoxic respiratory failure; abnormal CT chest" Attending Physician: Hubert Cardona MD History of Present Illness 84-year-old female with a history of right Nash diaphragmatic elevation, nocturnal hypoxemia and chronic hyponatremia who presented to the hospital due to worsening shortness of breath. Patient is unable to provide a reliable history, it sounds that the patient been having shortness of breath for the last week. She uses about 2 L of oxygen at night. She notes that she has been coughing up yellow sputum. She denies hemoptysis. No recent fevers or chills. Noncontrast CT chest obtained this admission revealed significant motion artifact. Reticular infiltrates noted in the lingula. Mild bibasilar infiltrates noted. Official radiology interpretation reports that the patient has extensive bilateral perihilar atelectasis and a small area of reticular fibrosis and subpleural right upper lobe. Moderate hiatal hernia was noted. Elevated left hemidiaphragm. Patient known to Dr. Handy to the pulmonary office and is followed for history of severe restrictive lung disease thought to be secondary to fibrotic changes to the chest from right sided breast cancer and elevated right hemidiaphragm. Patient also has a [id number] smoking history. Allergies Allergy/AdvReac Type Severity Reaction Status Date / Time Sulfa (Sulfonamide Allergy Severe Anaphylaxis Verified 07/15/25 08:27 Antibiotics) Penicillins Allergy Intermediate RASH Verified 07/15/25 08:27 fosfomycin AdvReac Mild Nausea Verified 07/15/25 08:27 Home Medications Medication Instructions Recorded Confirmed Type aspirin 81 mg chewable tablet 81 mg PO QPM 09/28/18 10/14/25 History wkdimbsw-uar-wxeev acid 0.4 1 tab PO DAILY 06/07/19 10/14/25 History mg-lycopene 300 mcg-lutein 250 mcg tablet (Centrum Silver) acetaminophen 500 mg tablet 500 mg PO DIRECTED PRN fever or 10/17/19 10/14/25 History pain calcium carbonate (Calcium 600) 600 mg PO DAILY 04/25/23 10/14/25 History cranberry fruit concentrate 250 mg 250 mg PO TID 10/21/24 10/14/25 History chewable tablet (Azo Cranberry) fluticasone propionate 50 2 spray intranasal DAILY #16 grams 12/20/24 10/14/25 Rx mcg/actuation nasal spray,suspension atenolol 50 mg tablet 50 mg PO DAILY #90 tabs 01/11/25 10/14/25 Rx Oxygen Home #1 ea 05/29/25 07/15/25 Rx cyanocobalamin (vitamin B-12) 1,000 mcg PO DAILY #90 tabs 05/29/25 10/14/25 Rx 1,000 mcg tablet furosemide 20 mg tablet (Lasix) 20 mg PO DAILY PRN edema of legs 05/29/25 10/14/25 Rx #20 tabs levothyroxine 25 mcg tablet 37.5 mcg (1.5 x 25 mcg) PO HS #135 05/29/25 10/14/25 Rx tabs lisinopril 10 mg tablet 10 mg PO DAILY #90 tabs 06/17/25 10/14/25 Rx potassium chloride 20 mEq 20 meq PO DAILY #90 tabs 06/24/25 10/14/25 Rx tablet,extended release venlafaxine 75 mg capsule,extended 75 mg PO DAILY #90 caps 06/24/25 10/14/25 Rx release 24 hr budesonide 1 mg/2 mL suspension 1 mg (2 mL) inhalation BID #120 mL 07/14/25 10/14/25 Rx for nebulization arformoterol 15 mcg/2 mL solution 15 mcg (2 mL) inhalation BID #120 07/26/25 10/14/25 Rx for nebulization mL simvastatin 20 mg tablet 20 mg PO HS #90 tabs 08/09/25 10/14/25 Rx trazodone 50 mg tablet 75 mg (1.5 x 50 mg) PO HS #90 tabs 08/23/25 10/14/25 Rx methenamine hippurate 1 gram tablet 1 g PO BID #180 tabs 10/12/25 10/14/25 Rx nitrofurantoin 100 mg PO Q12H 5 days #10 caps 10/12/25 10/14/25 Rx monohydrate/macrocrystals 100 mg capsule (Macrobid) ketoconazole 2 % topical cream 0 applic topical BID 10/14/25 10/14/25 History Patient History Medical History Chronic reflux esophagitis Anxiety disorder Osteoarthritis Cancer RT BREAST CANCER (RADIATION) Hearing deficit Lumbar compression fracture Hypernatremia Surgical History History of dilatation and curettage History of back surgery LUMBAR SURGERY (NO HARDWARE) History of total knee replacement RT History of esophagogastroduodenoscopy (EGD) History of colonoscopy (~2017) History of herniorrhaphy X2 History of cholecystectomy Hx of lumpectomy RT BREAST History of tooth extraction History of cataract surgery RT/LEFT History of appendectomy Family History Brother Family history of diabetes mellitus Sister Family hx of colon cancer Breast cancer Colorectal cancer Mother Myocardial infarction Denies family history of Ovarian cancer Prostate cancer Social History Smoking Status: Former smoker Tobacco Type: Cigarettes Age Started Using Tobacco: 17; Age Quit Using Tobacco: 48; packs per day: 0.5; Cigarettes Per Day: QUIT 1988; Second Hand Exposure: No; Do You Dip or Chew Tobacco: No; Hx Alcohol Use: No Hx Substance Use: No Preferred Language: [place] Communication Ability: Effective Visual Impairment: Limited Hearing Ability: Normal Tumblers Supervisor Required: No Beliefs That Will Affect Care: None marital status: Current Living Situation: Spouse current occupational status: retired How many Children do You have: 3 Feels Safe at Home: Yes Safety Concerns: Feels Safe At This Time Childhood Exposure to Second-Hand Smoke: Yes Diet: regular caffeine: No during the past year weight has: remained stable Dental Care, Regularly: No Physical Activity Frequency: Does not Exercise Seatbelt Use: always Sunscreen Use: No (Sometimes. ) Do you think of yourself as: straight/heterosexual Sexual Activity: has been sexually active, but not for at least 12 months Gender Identity: Female Assistive Devices: Denture - Upper, Denture - Lower, Oxygen - at Night and Walker Review of Systems Review of Systems: All systems reviewed & are unremarkable except as noted in HPI & below Physical Exam Physical Exam: Constitutional: No acute distress HEENT: EOMI, PERRLA Respiratory system: Decreased air entry bilaterally, no wheeze, no rhonchi, mild crackles bilateral lower lobe CVS: S1-S2 positive, no murmurs or gallops Abdomen: Soft, nontender, nondistended, positive bowel sounds x4, obese Extremities: +2 pulses bilaterally radialis, no cyanosis, minimal pitting edema bilateral lower extremity Neuro: Awake alert oriented x3 Psych: Normal mood and affect Skin: no rashes, warm and dry Lymphatic: no cervical or axillary lymphadenopathy Results & Data Results & Data Vital Signs (Past 12 Hours) Vital Signs Temp Pulse Pulse Resp BP Pulse Ox O2 Del Method 10/17/25 08:00 36.8 C 89 19 120/82 92 Nasal Cannula 10/17/25 07:13 85 18 95 Nasal Cannula 10/17/25 04:20 36.7 C 77 18 178/91 H 93 Nasal Cannula 10/16/25 23:07 36.8 C 80 24 134/80 97 Nasal Cannula O2 Flow Rate 10/17/25 08:00 2.0 10/17/25 07:13 2 10/17/25 04:20 2 10/16/25 23:07 2 PG Care Time/CCT Total # of Minutes Spent Total Time Spent with Patient: Total time spent is greater than 50% in coordination of care (as documented) at patient's floor/unit and/or counseling patient: Coding Level of Care Code 10280 INT INP/OBS CARE 2/55MIN Diagnoses Acute bronchitis J20.9 (HFpEF) heart failure with preserved ejection fraction I50.30 Dyspnea R06.00
[2025-10-17] MEDS: AZITHROMYCIN 250 MG TAB PO ONE (10:28)
[2025-10-17 13:29] LABS: Chlamydia pneumoniae PCR Not Detected (NotDetected); Coronavirus 229E PCR Not Detected (NotDetected); Coronavirus CoV-2 (COVID19)PCR Not Detected (NotDetected); Coronavirus HKU1 PCR Not Detected (NotDetected); Coronavirus NL63 PCR Not Detected (NotDetected); Coronavirus OC43PCR Not Detected (NotDetected); Human Metapneumovirus PCR Not Detected (NotDetected); Parainfluenza Virus 1 PCR Not Detected (NotDetected); Parainfluenza Virus 2 PCR Not Detected (NotDetected); Parainfluenza Virus 3 PCR Not Detected (NotDetected); Parainfluenza Virus 4 PCR Not Detected (NotDetected); Respiratory Syncytial VirusPCR Not Detected (NotDetected); Rhinovirus/Enterovirus PCR Not Detected (NotDetected)
--- NOTE | 2025-10-17 20:17 | Hospitalist Progress Note ---
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 Both she & her are poor historians but it sounds like her dyspnea has gotten worse in the last 2-3 weeks. She typically does not use NC O2 during the daytime but at some point in the last week she began to use it during the daytime due to the dyspnea. #acute hypoxic respiratory failure - -differential thought to be either acute HFpEF vs pulmonary fibrosis exacerbation vs both at time of admission -s/p IV lasix since admission with good diuresis -s/p IV solumedrol 60mg IV x 1 in ER then solumedrol 30mg IV BID since then -despite the above continued with wheezing/cough -CT chest obtained due to persistent symptoms - -no pulm edema -some PF right lung -hemidiaphragm elevation -diffuse atelectasis b/l -asked [facility] [place] pulmonary to see in consult; Dr Shea provided consultation today -he feels she has combination of acute bronchitis & acute HFpEF -Dr Shea added azithromycin x 5 days in addition to steroids and bronchodilators -biofire x 2 this admission negative -legionella urine ag sent/pending -at d/c will need formal 2-step ambulatory O2 test #acute HFpEF - -has received IV/PO lasix since admission with good diuresis since that time -echo with preserved EF -CT chest findings noted -BNP noted today; BNP can be normal in diastolic CHF #acute on chronic hyponatremia 2nd to chronic SIADH - -lowest Na level this admission 125 -today 129 -fluid restrict to 1500ml/day -cont salt tablets 1gm BID -TSH was 2.3 in May 2025 -baseline Na level about 130-132 #severe restrictive lung disease - -as seen on PFTs 05/06/25 -sees Dr Laws in pulmonary clinic -his notes also state she has element of pulmonary fibrosis - possibly due to prior radiation therapy for her right-sided breast cancer -does have mild kyphosis which can contribute to restriction -right-sided hemidiaphragm elevation will contribute to restriction -no significant obstruction on PFTs but she reports improvement in breathing with long-acting albuterol and pulmicort; remains on both -she continues to wheeze -- Dr Shea from pulmonary feels she likely has acute bronchitis -CT chest findings noted #uncontrolled HTN - -a review of her record shows 75% or more of her BPs over the years as high, 150-170 is typical -2nd to noncompliance with meds? -white coat component? -simply under-treated? -cont atenolol but increased to 75mg daily -cont lisinopril 10mg daily #hypothyroidism - -TSH 2.2 this admission -cont synthroid #hypomagnesemia - mild - -s/p IV mag sulfate with normal level #recent aerococcus UTI - -cont macrobid -plan 5 days in total then stop -day #4 today #hyperlipidemia - -cont statin #mental health, sleep, etc - -cont effexor -cont trazodone -melatonin prn #DVT proph - -heparin 5000 TID PT/OT - cleared to return home at d/c attempted to call pt's this evening -- unable to leave message and he did not answer progressing home next 1-2 days Admission and Anticipated Discharge Date Admission Date: October 14, 2025 Subjective patient reports ongoing cough/wheezing she denies any dyspnea she did stair work with PT today and states she did not have any dyspnea on exertion "when can I go home?" she asks denies any new complaints tele overnight wnl Review of Systems Review of Systems: cv - no chest pain or tightness, no orthopnea pulm - no significant sputum today GI - no nausea/emesis; last stool 10/15? Physical Exam Physical Exam: gen - looks well, still coughing (brassy/wheezy cough); no distress; no increased work of breathing HENT - MMM neck - mild JVD heart - RRR, s1 s2, no murmur lungs - b/l wheezing with rales in bases; no increased work of breathing; coughing abd - soft NT ND BS+; no HSM ext - no edema legs or feet b/l; pulses b/l feet 2+ psych - a/o x 3 Results & Data Results & Data Vital Signs (Past 12 Hours) Vital Signs Temp Pulse Pulse Pulse Resp BP Pulse Ox 10/17/25 19:49 36.6 C 81 24 161/84 H 96 10/17/25 19:31 78 20 98 10/17/25 16:09 36.7 C 19 152/83 H 91 10/17/25 13:43 10/17/25 13:01 70 10/17/25 11:25 36.9 C 68 19 112/58 L 95 Pulse Ox O2 Del Method O2 Flow Rate O2 Flow Rate 10/17/25 19:49 Nasal Cannula 2 10/17/25 19:31 Nasal Cannula 2 10/17/25 16:09 Room Air 10/17/25 13:43 94 3 10/17/25 13:01 10/17/25 11:25 Nasal Cannula 3.0 Laboratory Results Laboratory Results - last 24 hr 10/17/25 10/17/25 06:35 12:12 Sodium 129 L Potassium 4.3 Chloride 91 L Carbon Dioxide 29 Anion Gap 9 BUN 28 H Creatinine 0.63 Est Cr Clr Drug Dosing 66.7 eGFR 86.88 BUN/Creatinine Ratio 44.4 H Glucose 128 H Calcium 8.7 Magnesium 1.8 B-Natriuretic Peptide 50 Nasal Screen MRSA (PCR) Negative Adenovirus (PCR) Not Detected B. pertussis DNA (PCR) Not Detected B.parapertussis DNA PCR Not Detected C. pneumoniae DNA (PCR) Not Detected Coronavirus OC43 (PCR) Not Detected Coronavirus HKU1 (PCR) Not Detected Coronavirus 229E (PCR) Not Detected SARS-CoV-2 (PCR) Not Detected Coronavirus NL63 (PCR) Not Detected Human Metapneumovir PCR Not Detected Influenza Type A (PCR) Not Detected Influenza Type B (PCR) Not Detected Urine Legionella Ag Pending M. pneumoniae (PCR) Not Detected Parainfluenza 1 (PCR) Not Detected Parainfluenza 2 (PCR) Not Detected Parainfluenza 3 (PCR) Not Detected Parainfluenza 4 (PCR) Not Detected RSV (PCR) Not Detected Entero/Rhino (PCR) Not Detected PG Care Time/CCT Total # of Minutes Spent Total Time Spent with Patient: Total time spent is greater than 50% in coordination of care (as documented) at patient's floor/unit and/or counseling patient: Coding Level of Care Code 63802 SUB INP/OBS CARE 3/50MIN Diagnoses Acute hypoxic respiratory failure J96.01 Elevated hemidiaphragm J98.6 Pulmonary fibrosis J84.10 Restrictive lung disease J98.4 Morbid obesity with BMI of 40.0-44.9, adult E66.01; Z68.41 SIADH (syndrome of inappropriate ADH production) E22.2 Acquired hypothyroidism E03.9 Hypothyroidism type: acquired Hyponatremia E87.1 Hyperlipidemia, unspecified hyperlipidemia type E78.5 Hyperlipidemia type: unspecified Essential hypertension I10 Hypertension type: essential hypertension GERD (gastroesophageal reflux disease) K21.9 Acute bronchitis J20.9 (7) Hypothyroidism Hypothyroidism type: acquired Qualified Code(s): E03.9 - Hypothyroidism, unspecified (9) Hyperlipidemia Hyperlipidemia type: unspecified Qualified Code(s): E78.5 - Hyperlipidemia, unspecified (10) Hypertension Hypertension type: essential hypertension Qualified Code(s): I10 - Essential (primary) hypertension
[2025-10-18 06:34] LABS: Anion Gap 8.0 (3-11); Blood Urea Nitrogen 37.0 mg/dl (6-23); Calcium 9.2 mg/dl (8.6-10.3); Carbon Dioxide 28.0 mmol/L (21-32); Chloride 93.0 mmol/L (98-107); Creatinine Clr Calc Pharmacy 57.2 ml/min; Glucose 96.0 mg/dl (70-99(Fasting)); Potassium 4.7 mmol/L (3.5-5.1); Sodium 129.0 mmol/L (136-145)
[2025-10-18] MEDS: AZITHROMYCIN 250 MG TAB PO SCH (08:42)
--- NOTE | 2025-10-18 11:10 | Pulmonology Progress Note ---
Date of Service October 18, 2025 Assessment & Plan (1) Acute bronchitis: Plan: Patient presenting essentially with acute bronchitis. Possible component of diastolic heart failure exacerbation as well. Sputum cultures contaminated. Urine Legionella antigen is pending. Patient currently on nebulized budesonide and formoterol. Mucinex twice daily for mucociliary clearance. Change lisinopril to losartan. Discontinue methylprednisolone and transition her to prednisone 40 mg daily which can be continued for another 3 to 4 days. Continue azithromycin for 5 days total and consider extending to 10 days if Legionella antigen comes back positive. (2) (HFpEF) heart failure with preserved ejection fraction: Plan: Agree with low-dose diuretics and checking daily weights. (3) Dyspnea: Plan: Dyspnea is multifactorial and acutely worse due to acute bronchitis. Obesity and chronic restrictive lung disease playing a role as well. VBG obtained 10/14/2025 without evidence of hypercapnia. Patient would benefit from pulmonary rehab. (4) Abnormal chest CT: Plan: I do not see any clinically relevant interstitial lung disease nor do I see any progressive disease. She has some mild reticulonodular opacities likely related to prior radiation therapy and scarring from persistent atelectasis. There does not appear to be any significant UIP/IPF or NSIP pattern. The role of steroids at this juncture would be simply to treat her acute bronchitis and not to treat any form of interstitial lung disease. Plan I personally spent 40 minutes on the date of service in activities related to this patient's encounter, including 25 minutes of counseling with patient regarding treatment plan and 15 minutes of clinical review of lab results and documentation. I did college admissions counselor the patient regarding their diagnosis and treatment plan and they expressed understanding. This note was dictated using voice recognition software and may include grammatical errors, extra words, word substitutions and other inaccuracies due to errors in the voice recognition software and differences in speech patterns. Admission and Anticipated Discharge Date Admission Date: October 14, 2025 Subjective Patient seen and examined. She is feeling much better and coughing less. She denies any significant shortness of breath at rest. She denies any chest pain, nausea or vomiting. Review of Systems Review of Systems: All systems reviewed & are unremarkable except as noted in HPI & below Physical Exam Physical Exam: Constitutional: No acute distress HEENT: EOMI, PERRLA Respiratory system: Decreased air entry bilaterally, no wheeze, no rhonchi, mild crackles bilateral lower lobe CVS: S1-S2 positive, no murmurs or gallops Abdomen: Soft, nontender, nondistended, positive bowel sounds x4, obese Extremities: +2 pulses bilaterally radialis, no cyanosis, minimal pitting edema bilateral lower extremity Neuro: Awake alert oriented x3 Psych: Normal mood and affect Skin: no rashes, warm and dry Lymphatic: no cervical or axillary lymphadenopathy Results & Data Results & Data Vital Signs (Past 12 Hours) Vital Signs Temp Pulse Pulse Resp BP Pulse Ox O2 Del Method 10/18/25 07:33 36.5 C 82 19 144/70 H 91 Nasal Cannula 10/18/25 07:30 Nasal Cannula 10/18/25 07:03 83 16 94 Nasal Cannula 10/18/25 05:31 91 H 10/18/25 02:54 36.8 C 83 20 141/85 H 94 Nasal Cannula O2 Flow Rate 10/18/25 07:33 91 10/18/25 07:30 3 10/18/25 07:03 3 10/18/25 05:31 10/18/25 02:54 2 PG Care Time/CCT Total # of Minutes Spent Total Time Spent with Patient: Total time spent is greater than 50% in coordination of care (as documented) at patient's floor/unit and/or counseling patient: Coding Level of Care Code 57753 SUB INP/OBS CARE 2/35MIN Diagnoses Acute bronchitis J20.9 (HFpEF) heart failure with preserved ejection fraction I50.30 Dyspnea R06.[address] R93.89
--- NOTE | 2025-10-18 21:06 | Hospitalist Progress Note ---
Date of Service October 18, 2025 Assessment & Plan (1) Acute hypoxic respiratory failure: (2) Elevated hemidiaphragm: (3) Pulmonary fibrosis: (4) Restrictive lung disease: (5) Morbid obesity with BMI of 40.0-44.9, adult: (6) SIADH (syndrome of inappropriate ADH production): (7) Hypothyroidism: (8) Hyponatremia: (9) Hyperlipidemia: (10) Hypertension: (11) GERD (gastroesophageal reflux disease): (12) Acute bronchitis: Plan 84yo female with severe restrictive lung disease, right sided hemidiaphragm elevation, night-time NC O2 use, 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 Both she & her are poor historians but it sounds like her dyspnea has gotten worse in the last 2-3 weeks. She typically does not use NC O2 during the daytime but at some point in the last week she began to use it during the daytime due to the dyspnea. #acute hypoxic respiratory failure - -differential thought to be either acute HFpEF vs pulmonary fibrosis exacerbation vs both at time of admission -s/p IV lasix since admission with good diuresis -s/p IV solumedrol 60mg IV x 1 in ER then solumedrol 30mg IV BID since then -despite the above continued with wheezing/cough -CT chest obtained due to persistent symptoms - -no pulm edema -some PF right lung -hemidiaphragm elevation -diffuse atelectasis b/l -asked [facility] [place] pulmonary to see in consult; Dr Shea provided consultation -he felt she has combination of acute bronchitis & acute HFpEF; after reviewing her chest CT he does not think this is fibrosis contributing to symptoms -Dr Shea added azithromycin x 5 days in addition to steroids and bronchodilators; day #2 of azithromycin today -biofire x 2 this admission negative -legionella urine ag sent/pending -at d/c will need formal 2-step ambulatory O2 test; ordered for tomorrow, 10/19 -Dr Shea stopped IV steroids later today and transition to PO prednisone on 10/19 #acute HFpEF - -had received IV/PO lasix since admission with good diuresis -echo with preserved EF -appears euvolemic today -lasix is on hold -CT chest findings noted -BNP was normal at 50 #acute on chronic hyponatremia 2nd to chronic SIADH - -lowest Na level this admission 125 -today again level is 129 -fluid restrict to 1500ml/day -cont salt tablets 1gm BID -TSH was 2.3 in May 2025 -baseline Na level about 130-132 #severe restrictive lung disease - -as seen on PFTs 05/06/25 -sees Dr Laws in pulmonary clinic -his notes also state she has element of pulmonary fibrosis - possibly due to prior radiation therapy for her right-sided breast cancer -does have mild kyphosis which can contribute to restriction -right-sided hemidiaphragm elevation will contribute to restriction -no significant obstruction on PFTs but she reports improvement in breathing with long-acting albuterol and pulmicort; remains on both -appreciate consultation by Dr Shea from pulmonary -he feels she likely has acute bronchitis -CT chest findings noted #uncontrolled HTN - -a review of her record shows 75% or more of her BPs over the years as high, 150-170 is typical -2nd to noncompliance with meds? -white coat component? -simply under-treated? -cont atenolol but increased to 75mg daily -Dr Shea changed lisinopril 10mg daily to losartan 25mg daily in the event some of her cough is 2nd to CORAL inhibitor #hypothyroidism - -TSH 2.2 this admission -cont synthroid #hypomagnesemia - mild - -s/p IV mag sulfate with normal level #recent aerococcus UTI - -cont macrobid -plan 5 days then stop; today is day #5 #hyperlipidemia - -cont statin #mental health, sleep, etc - -cont effexor -cont trazodone -melatonin prn #DVT proph - -heparin 5000 TID PT/OT - cleared to return home at d/c updated pt's at bedside today hopefully home tomorrow, 10/19 2-step tomorrow (had been using NC O2 at HS, and prn during the day prior to this admission) Admission and Anticipated Discharge Date Admission Date: October 14, 2025 Subjective tele overnight wnl patient reports cough is improving still with mild BOWMAN but improved no dyspnea at rest she feels "about 75% better" eating well at bedside gave patient option of staying overnight or going home today -- she wants to stay another night we discussed getting a formal 2-step tomorrow Review of Systems Review of Systems: gen - no fevers or chills cv - no chest pain or tightness ; no PND/no orthopnea pulm - sputum has decreased GI - no N/V ; +BMs Physical Exam Physical Exam: gen - looks well, cough seems better; lying in bed without increased work of breathing or distress HENT - MMM neck - no JVD heart - RRR, s1 s2, no murmur lungs - b/l mild wheezing with fine rales in bases; no increased work of breathing abd - soft NT ND BS+; no HSM ext - no edema legs or feet b/l; pulses b/l feet 2+ psych - a/o x 3, asks the same questions over & over Results & Data Results & Data Vital Signs (Past 12 Hours) Vital Signs Temp Pulse Pulse Pulse Resp BP Pulse Ox 10/18/25 20:08 36.5 C 74 22 134/80 95 10/18/25 20:03 74 20 94 10/18/25 20:00 10/18/25 15:18 36.7 C 73 18 147/70 H 10/18/25 13:00 72 O2 Del Method O2 Flow Rate 10/18/25 20:08 Nasal Cannula 2 10/18/25 20:03 Nasal Cannula 2 10/18/25 20:00 Nasal Cannula 2 10/18/25 15:18 Nasal Cannula 2 10/18/25 13:00 Laboratory Results Laboratory Results - last 48 hr 10/17/25 10/17/25 10/18/25 06:35 12:12 05:51 Sodium 129 L 129 L Potassium 4.3 4.7 Chloride 91 L 93 L Carbon Dioxide 29 28 Anion Gap 9 8 BUN 28 H 37 H Creatinine 0.63 0.74 Est Cr Clr Drug Dosing 66.7 57.2 eGFR 86.88 79.24 BUN/Creatinine Ratio 44.4 H 50.0 H Glucose 128 H 96 Calcium 8.7 9.2 Magnesium 1.8 B-Natriuretic Peptide 50 Nasal Screen MRSA (PCR) Negative Adenovirus (PCR) Not Detected B. pertussis DNA (PCR) Not Detected B.parapertussis DNA PCR Not Detected C. pneumoniae DNA (PCR) Not Detected Coronavirus OC43 (PCR) Not Detected Coronavirus HKU1 (PCR) Not Detected Coronavirus 229E (PCR) Not Detected SARS-CoV-2 (PCR) Not Detected Coronavirus NL63 (PCR) Not Detected Human Metapneumovir PCR Not Detected Influenza Type A (PCR) Not Detected Influenza Type B (PCR) Not Detected M. pneumoniae (PCR) Not Detected Parainfluenza 1 (PCR) Not Detected Parainfluenza 2 (PCR) Not Detected Parainfluenza 3 (PCR) Not Detected Parainfluenza 4 (PCR) Not Detected RSV (PCR) Not Detected Entero/Rhino (PCR) Not Detected PG Care Time/CCT Total # of Minutes Spent Total Time Spent with Patient: Total time spent is greater than 50% in coordination of care (as documented) at patient's floor/unit and/or counseling patient: Coding Level of Care Code 39978 SUB INP/OBS CARE 2MIN Diagnoses Acute hypoxic respiratory failure J96.01 Elevated hemidiaphragm J98.6 Pulmonary fibrosis J84.10 Restrictive lung disease J98.4 Morbid obesity with BMI of 40.0-44.9, adult E66.01; Z68.41 SIADH (syndrome of inappropriate ADH production) E22.2 Acquired hypothyroidism E03.9 Hypothyroidism type: acquired Hyponatremia E87.1 Hyperlipidemia, unspecified hyperlipidemia type E78.5 Hyperlipidemia type: unspecified Essential hypertension I10 Hypertension type: essential hypertension GERD (gastroesophageal reflux disease) K21.9 Acute bronchitis J20.9 (7) Hypothyroidism Hypothyroidism type: acquired Qualified Code(s): E03.9 - Hypothyroidism, unspecified (9) Hyperlipidemia Hyperlipidemia type: unspecified Qualified Code(s): E78.5 - Hyperlipidemia, unspecified (10) Hypertension Hypertension type: essential hypertension Qualified Code(s): I10 - Essential (primary) hypertension
[2025-10-19] MEDS: BISMUTH SUBSALICYLATE SUSP PO PRN (00:54)
[2025-10-19 06:23] LABS: Anion Gap 8.0 (3-11); Blood Urea Nitrogen 57.0 mg/dl (6-23); Calcium 9.2 mg/dl (8.6-10.3); Carbon Dioxide 28.0 mmol/L (21-32); Chloride 95.0 mmol/L (98-107); Creatinine Clr Calc Pharmacy 28.6 ml/min; Glucose 90.0 mg/dl (70-99(Fasting)); Potassium 4.4 mmol/L (3.5-5.1); Sodium 131.0 mmol/L (136-145)
[2025-10-19] MEDS ORDERED: LOSARTAN POTASSIUM 25 MG TAB PO SCH (09:00)
[2025-10-19] MEDS: SODIUM CHLORIDE 0.9% 500 ML IV SCH (09:13)
[2025-10-19] MEDS: predniSONE 20 MG TAB PO SCH (09:13)
--- NOTE | 2025-10-19 11:01 | Pulmonology Progress Note ---
Date of Service October 19, 2025 Assessment & Plan (1) Acute bronchitis: Plan: Patient presenting essentially with acute bronchitis. Possible component of diastolic heart failure exacerbation as well. Sputum cultures contaminated. Urine Legionella antigen is pending. Patient currently on nebulized budesonide and formoterol. Mucinex twice daily for mucociliary clearance. Changed lisinopril to losartan. Continue prednisone 40 mg daily for an additional 2 to 3 days. Continue azithromycin for 5 days total and consider extending to 10 days if Legionella antigen comes back positive. (2) (HFpEF) heart failure with preserved ejection fraction: Plan: Agree with low-dose diuretics and checking daily weights. (3) Dyspnea: Plan: Dyspnea is multifactorial and acutely worse due to acute bronchitis. Obesity and chronic restrictive lung disease playing a role as well. VBG obtained 10/14/2025 without evidence of hypercapnia. Patient would benefit from pulmonary rehab. (4) Abnormal chest CT: Plan: I do not see any clinically relevant interstitial lung disease nor do I see any progressive disease. She has some mild reticulonodular opacities likely related to prior radiation therapy and scarring from persistent atelectasis. There does not appear to be any significant UIP/IPF or NSIP pattern. The role of steroids at this juncture would be simply to treat her acute bronchitis and not to treat any form of interstitial lung disease. Plan Pulmonary to sign off. Please call with questions. Thank you for the consult. I personally spent 30 minutes on the date of service in activities related to this patient's encounter, including 20 minutes of counseling with patient regarding treatment plan and 10 minutes of clinical review of lab results and documentation. I did corporate travel counselor the patient regarding their diagnosis and treatment plan and they expressed understanding. This note was dictated using voice recognition software and may include grammatical errors, extra words, word substitutions and other inaccuracies due to errors in the voice recognition software and differences in speech patterns. Admission and Anticipated Discharge Date Admission Date: October 14, 2025 Subjective Dyspnea and cough improved. Patient is eager to go home. She had a mild AARON and is getting IV fluids. Review of Systems Review of Systems: All systems reviewed & are unremarkable except as noted in HPI & below Physical Exam Physical Exam: Constitutional: No acute distress HEENT: EOMI, PERRLA Respiratory system: Decreased air entry bilaterally, no wheeze, no rhonchi, mild crackles bilateral lower lobe CVS: S1-S2 positive, no murmurs or gallops Abdomen: Soft, nontender, nondistended, positive bowel sounds x4, obese Extremities: +2 pulses bilaterally radialis, no cyanosis, minimal pitting edema bilateral lower extremity Neuro: Awake alert oriented x3 Psych: Normal mood and affect Skin: no rashes, warm and dry Lymphatic: no cervical or axillary lymphadenopathy Results & Data Results & Data Vital Signs (Past 12 Hours) Vital Signs Temp Pulse Pulse Pulse Pulse Resp Resp 10/19/25 08:45 95 H 90 79 20 10/19/25 08:13 36.4 C L 83 18 10/19/25 07:53 10/19/25 07:24 67 18 Resp Resp BP Pulse Ox Pulse Ox Pulse Ox Pulse Ox 10/19/25 08:45 24 16 94 87 L 90 10/19/25 08:13 145/74 H 94 10/19/25 07:53 10/19/25 07:24 97 O2 Del Method O2 Flow Rate O2 Flow Rate 10/19/25 08:45 2 10/19/25 08:13 Nasal Cannula 2 10/19/25 07:53 Nasal Cannula 2 10/19/25 07:24 Nasal Cannula 2 PG Care Time/CCT Total # of Minutes Spent Total Time Spent with Patient: Total time spent is greater than 50% in coordination of care (as documented) at patient's floor/unit and/or counseling patient: Coding Level of Care Code 83487 SUB INP/OBS CARE 12/04MIN Diagnoses Acute bronchitis J20.9 (HFpEF) heart failure with preserved ejection fraction I50.30 Dyspnea R06.[address] R93.89
--- NOTE | 2025-10-19 11:35 | Discharge Summary ---
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 Both she & her are poor historians but it sounds like her dyspnea has gotten worse in the last 2-3 weeks. She typically does not use NC O2 during the daytime but at some point in the last week she began to use it during the daytime due to the dyspnea. #acute hypoxic respiratory failure - -differential thought to be either acute HFpEF vs pulmonary fibrosis exacerbation vs both at time of admission -s/p IV lasix since admission with good diuresis -s/p IV solumedrol 60mg IV x 1 in ER then solumedrol 30mg IV BID since then -despite the above continued with wheezing/cough -CT chest obtained due to persistent symptoms - -no pulm edema -some PF right lung -hemidiaphragm elevation -diffuse atelectasis b/l -asked [facility] pulmonary to see in consult; Dr Shea provided consultation -he felt she has combination of acute bronchitis & acute HFpEF; after reviewing her chest CT he does not think this is fibrosis contributing to symptoms -Dr Shea added azithromycin x 5 days in addition to steroids and bronchodilators; day #2 of azithromycin today -biofire x 2 this admission negative -legionella urine ag sent/pending -at d/c will need formal 2-step ambulatory O2 test; ordered for tomorrow, 10/19 -Dr Shea stopped IV steroids later today and transition to PO prednisone on 10/19 #acute HFpEF - -had received IV/PO lasix since admission with good diuresis -echo with preserved EF -appears euvolemic today -lasix is on hold -CT chest findings noted -BNP was normal at 50 #acute on chronic hyponatremia 2nd to chronic SIADH - -lowest Na level this admission 125 -today again level is 129 -fluid restrict to 1500ml/day -cont salt tablets 1gm BID -TSH was 2.3 in May 2025 -baseline Na level about 130-132 #severe restrictive lung disease - -as seen on PFTs 05/06/25 -sees Dr Laws in pulmonary clinic -his notes also state she has element of pulmonary fibrosis - possibly due to prior radiation therapy for her right-sided breast cancer -does have mild kyphosis which can contribute to restriction -right-sided hemidiaphragm elevation will contribute to restriction -no significant obstruction on PFTs but she reports improvement in breathing with long-acting albuterol and pulmicort; remains on both -appreciate consultation by Dr Shea from pulmonary -he feels she likely has acute bronchitis -CT chest findings noted #uncontrolled HTN - -a review of her record shows 75% or more of her BPs over the years as high, 150-170 is typical -2nd to noncompliance with meds? -white coat component? -simply under-treated? -cont atenolol but increased to 75mg daily -Dr Shea changed lisinopril 10mg daily to losartan 25mg daily in the event some of her cough is 2nd to CORAL inhibitor #hypothyroidism - -TSH 2.2 this admission -cont synthroid #hypomagnesemia - mild - -s/p IV mag sulfate with normal level #recent aerococcus UTI - -cont macrobid -plan 5 days then stop; today is day #5 #hyperlipidemia - -cont statin #mental health, sleep, etc - -cont effexor -cont trazodone -melatonin prn #DVT proph - -heparin 5000 TID PT/OT - cleared to return home at d/c updated pt's at bedside today hopefully home tomorrow, 10/19 2-step tomorrow (had been using NC O2 at HS, and prn during the day prior to this admission) Admission HPI Per Admitting Provider 84yo female with severe restrictive lung disease, right sided hemidiaphragm elevation, night-time NC O2 use, 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 Both she & her are poor historians but it sounds like her dyspnea has gotten worse in the last 2-3 weeks. She typically does not use NC O2 during the daytime but at some point in the last week she began to use it during the daytime due to the dyspnea. Denies orthopnea or PND. Denies abdominal swelling. Denies edema of legs. She does not think her weight has changed but she isn't sure. Does have cough with thick white sputum ("it's in my throat"). No fevers. Appetite has been poor "for a while." During my ER assessment she had visible tachypnea with labored breathing (mild retractions). She admitted that when she ambulated to the bathroom while in the ER she got very short of breath. With respect to lasix use she reported that she has not been taking such at [facility]. Discharge Plan Discharge Items Patient Disposition: Home - Home Health Services Reason For Visit: ACUTE HYPOXIC RESPIRATORY FAILURE Discharge Diagnosis: acute hypoxic respiratory failure Condition on Discharge: Good Activity: Resume your previous activity Non-emergency contact: Primary Care Provider Call non-emergency contact if: you have any medication questions and your symptoms worsen Follow-up/Referrals: Mirian Melgoza CRNP [Primary Care Provider] - Diet: Regular Addtl Attending Provider Instructions: You were treated for difficulty breathing and low oxygen levels Your oxygen levels are chronically low and this is related to not breathing deeply, some lung scarring (pulmonary fibrosis), and COPD On top of that you had some bronchitis that caused a flare-up of coughing/wheezing/low oxygen -continue azithromycin (antibiotic for bronchitis) three more doses -continue prednisone (steroid) for five days -continue your usual nebulizers -schedule follow up with your retirement consultant Your labs showed you are a little "dried out" today and your kidney function was worse than usual - to address this I gave a little IV fluid today and hold off on some meds (see below). I have asked home health to draw your blood as soon as possible. See Dr. Melgoza about results - ideally next week We changed your blood pressure medicine: atenolol dose increased stopped lisinopril - which might be causing coughing replaced with losartan - I gave a prescription for this but don't start taking it until after your blood draw. Dr. Melgoza will tell you if its ok to start it based on your lab test also don't take furosemide (lasix) until after your lab tests are resulted We increased your oxygen prescription - you should use 2 liters continuously both day and night. Because of your lung problems, you have a chronically low blood sodium level. Eat a normal salt diet - you don't have to restrict table salt. Take a protein supplement twice a day - this will help keep your blood sodium higher. This could be a protein shake, boost or ensure, or a protein bar It was a pleasure taking care of you in the hospital, Jeanne Perez MD Pending Studies at Discharge: No Stand-Alone Forms: My [facility], Smoking Cessation Medications and DC Order Prescriptions: New azithromycin 250 mg Tablet 250 mg PO QAM Qty: 3 0RF atenolol 25 mg Tablet 75 mg PO DAILY Qty: 90 0RF losartan 25 mg Tablet 25 mg PO QAM Qty: 30 0RF Rx Instructions: start after ok'd by Dr. Melgoza based on labs prednisone 20 mg Tablet 40 mg PO DAILY Qty: 10 0RF Continued fluticasone propionate 50 mcg/actuation spray,suspension 2 spray intranasal DAILY Qty: 16 6RF potassium chloride 20 mEq tablet extended release 20 meq PO DAILY Qty: 90 3RF venlafaxine 75 mg capsule,extended release 24hr 75 mg PO DAILY Qty: 90 3RF arformoterol 15 mcg/2 mL solution for nebulization 15 mcg inhalation BID Qty: 120 9RF Rx Instructions: USE 1 VIAL IN NEBULIZER TWICE DAILY FOR COPD -J44.9, RESTRICTIVE LUNG DISEASE J96.4 New in 2023-No PA required simvastatin 20 mg tablet 20 mg PO HS Qty: 90 3RF trazodone 50 mg tablet 75 mg PO HS Qty: 90 3RF methenamine hippurate 1 gram tablet 1 g PO BID Qty: 180 1RF Centrum Silver 0.4-300-250 mg-mcg-mcg tablet 1 tab PO DAILY Patient Comments: 10/14- otc unable to verify acetaminophen 500 mg tablet 500 mg PO DIRECTED PRN (Reason: fever or pain) Patient Comments: 10/14- otc unable to verify budesonide 1 mg/2 mL suspension for nebulization 1 mg inhalation BID Qty: 120 9RF Azo Cranberry 250 mg tablet,chewable 250 mg PO TID Patient Comments: 10/14- otc unable to verify aspirin 81 mg Tablet,Chewable 81 mg PO QPM Patient Comments: 10/14- otc unable to verify calcium carbonate [Calcium 600] 600 mg calcium (1,500 mg) tablet 600 mg PO DAILY Patient Comments: 10/14- otc unable to verify cyanocobalamin (vitamin B-12) 1,000 mcg tablet 1,000 mcg PO DAILY Qty: 90 0RF Patient Comments: 10/14- otc unable to verify Rx Instructions: purchase [id number] furosemide [Lasix] 20 mg tablet 20 mg PO DAILY PRN (Reason: edema of legs) Qty: 20 0RF Patient Comments: 10/14- last filled 05/30 20 day supply #20 levothyroxine 25 mcg tablet 37.5 mcg PO HS Qty: 135 3RF ketoconazole 2 % cream 0 applic topical BID Patient Comments: 10/14- filled 09/02 15 day supply Discontinued atenolol 50 mg tablet 50 mg PO DAILY Qty: 90 3RF lisinopril 10 mg tablet 10 mg PO DAILY Qty: 90 3RF nitrofurantoin monohyd/m-cryst [Macrobid] 100 mg capsule 100 mg PO Q12H 5 Days Qty: 10 0RF Rx Instructions: must administer with a meal/food No Action (DME) Oxygen Home Liters Per Minute See Rx Instructions .ROUTE .MEDSUPPLY Qty: 1 0RF Rx Instructions: 2 liters oxygen at night-time with sleep and with ambulation/activity Discharge Orders: Discharge Order (Routine); Ordered 10/19/25 Ordered By: Jeanne Perez Admission Data Admit Date/Time: 10/14/25 12:42 Attending Provider: Jeanne Perez Admit Provider: Hubert Cardona Primary Care Provider: Mirian Melgoza Other Providers: Hubert Cardona; Mukund Shea; [facility] Stay Data Consultations 10/14/25 11:33 ED Decision to Admit Stat 10/17/25 08:04 Consult Pulmonology Routine Diagnostic Imagining Performed 10/14/25 12:37 US venous doppler LE BI Stat 10/16/25 15:05 CT chest diagnostic wo con Routine Pending Results Patient Have Any Pending Studies at Discharge: No Discharge Instructions Given to Patient (Per Discharging Provider) You were treated for difficulty breathing and low oxygen levels Your oxygen levels are chronically low and this is related to not breathing deeply, some lung scarring (pulmonary fibrosis), and COPD On top of that you had some bronchitis that caused a flare-up of coughing/wheezing/low oxygen -continue azithromycin (antibiotic for bronchitis) three more doses -continue prednisone (steroid) for five days -continue your usual nebulizers -schedule follow up with your retirement consultant Your labs showed you are a little "dried out" today and your kidney function was worse than usual - to address this I gave a little IV fluid today and hold off on some meds (see below). I have asked home health to draw your blood as soon as possible. See Dr. Melgoza about results - ideally next week We changed your blood pressure medicine: atenolol dose increased stopped lisinopril - which might be causing coughing replaced with losartan - I gave a prescription for this but don't start taking it until after your blood draw. Dr. Melgoza will tell you if its ok to start it based on your lab test also don't take furosemide (lasix) until after your lab tests are resulted We increased your oxygen prescription - you should use 2 liters continuously both day and night. Because of your lung problems, you have a chronically low blood sodium level. Eat a normal salt diet - you don't have to restrict table salt. Take a protein supplement twice a day - this will help keep your blood sodium higher. This could be a protein shake, boost or ensure, or a protein bar It was a pleasure taking care of you in the hospital, Jeanne Perez MD Coding Diagnoses Acute hypoxic respiratory failure J96.01 Elevated hemidiaphragm J98.6 Pulmonary fibrosis J84.10 Restrictive lung disease J98.4 Morbid obesity with BMI of 40.0-44.9, adult E66.01; Z68.41 SIADH (syndrome of inappropriate ADH production) E22.2 Acquired hypothyroidism E03.9 Hypothyroidism type: acquired Hyponatremia E87.1 Hyperlipidemia, unspecified hyperlipidemia type E78.5 Hyperlipidemia type: unspecified Essential hypertension I10 Hypertension type: essential hypertension GERD (gastroesophageal reflux disease) K21.9 Acute bronchitis J20.9
--- NOTE | 2025-10-19 15:20 | Hospitalist Progress Note ---
Date of Service October 19, 2025 Assessment & Plan (1) Acute hypoxic respiratory failure: (2) Elevated hemidiaphragm: (3) Pulmonary fibrosis: (4) Restrictive lung disease: (5) Hyponatremia: (6) Acute bronchitis: Plan Acute on chronic hypoxic respiratory failure - multifactorial but acute provoking event seems to be acute bronchitis with possible component of acute on chronic diastolic heart failure.More hypoxic than baseline, usually does not use continuous oxygen at home. (uses at night and as needed). Severe restrictive lung disease, followed in pulmonary clinic. Limited amount of pulmonary fibrosis possibly related to history of radiation therapy for right-sided breast cancer. - caused by acute bronchitis, possible component of acute on chronic diastolic heart failure - Pulmonary consult on 10/18/2025. - Continue azithromycin, day 3, and prednisone 40 mg daily with bronchodilators - anticipating discharge home tomorrow with home health if renal function stable/improved Acute kidney injury - prerenal, appears to be caused by diuretics and/or fluid restriction. Diuresed this admission, weights and ins and outs inaccurate. yeah - Continue holding Lasix and ARB. - Ordered 500 mL normal saline. lifted fluid restriction - Recheck chemistry panel in the morning. Hyponatremia, acute on chronic Sodium improved to 131. - On b.i.d. salt tablets, new this admission, was not used at home. - Continue for now. - Check chemistry panel in the morning. HFpEF possible acute on chronic HFpEF contributing to hypoxia at admission, was diuresed and now dry. - Echo showed normal LVEF. - Diuretics and ARB held. - uses Lasix as needed at home Hypertension Resume ARB when when AARON improves. - Continue atenolol, increased to 75 mg this admission. Aerococcus UTI completed treatment with 5 days of Macrobid. DVT Prophylaxis: On heparin subcutaneously 5000 units t.i.d. Medical Complexity: Medical decision making was complex, high risk for clinical deterioration morbidity, or mortality for this encounter, unstable conditions: Acute kidney injury. Admission and Anticipated Discharge Date Admission Date: October 14, 2025 Subjective Chacha reports that her shortness of breath is much improved and she feels like she is back to close to her baseline with respect to her breathing. No wheezing and coughing improved a lot no chest pain she did have a good urination when she woke up and again midmorning just before I rounded at 1045 Physical Exam Physical Exam: Last 24h vitals reviewed GEN: no acute distress, awake and alert sitting up in the chair HEENT: pupils equal, sclerae anicteric, moist MM RESP: normal WOB, diminished throughout, CTAB no rhonchi rales or wheezing, no coughing observed CV: reg no mrg ABD: soft/nt/nd +BT : no solares SKIN: warm and dry, no generalized rashes no lower extremity edema, lower extremities warm and well-perfused NEURO: AOx person, place, and situation. Face symmetric, speech normal, moves 4 ext spontaneously and equally Results & Data Results & Data Vital Signs (Past 12 Hours) Vital Signs Temp Pulse Pulse Pulse Pulse Pulse Resp 10/19/25 12:00 37.0 C 76 18 10/19/25 11:21 77 10/19/25 08:45 95 H 90 79 10/19/25 08:13 36.4 C L 83 18 10/19/25 07:53 10/19/25 07:24 67 18 Resp Resp Resp BP Pulse Ox Pulse Ox Pulse Ox 10/19/25 12:00 173/74 H 96 10/19/25 11:21 10/19/25 08:45 20 24 16 94 87 L 10/19/25 08:13 145/74 H 94 10/19/25 07:53 10/19/25 07:24 97 Pulse Ox O2 Del Method O2 Flow Rate O2 Flow Rate 10/19/25 12:00 Nasal Cannula 10/19/25 11:21 10/19/25 08:45 90 2 10/19/25 08:13 Nasal Cannula 2 10/19/25 07:53 Nasal Cannula 2 10/19/25 07:24 Nasal Cannula 2 Laboratory Results - Laboratory Studies: - Sodium: 131 - BUN: 57 - Creatinine: 1.48 (increased from 0.74) PG Care Time/CCT Total # of Minutes Spent Total Time Spent with Patient: Total time spent is greater than 50% in coordination of care (as documented) at patient's floor/unit and/or counseling patient: Coding Level of Care Code 64825 SUB INP/OBS CARE 2/35MIN Diagnoses Acute hypoxic respiratory failure J96.01 Elevated hemidiaphragm J98.6 Pulmonary fibrosis J84.10 Restrictive lung disease J98.4 Hyponatremia E87.1 Acute bronchitis J20.9
[2025-10-20 05:22] VITALS: TEMP 98.1
[2025-10-20 06:23] LABS: Hematocrit (blood only) 36.1 % (37.0-47.0); Hemoglobin 12.3 g/dL (12.0-16.0); Mean Corpuscular Hemoglobin 33.1 pg (25.0-34.0); Mean Corpuscular Volume 97.0 fL (80.0-100.0); Platelet Count 298 K/uL (130-400); RDW Standard Deviation 46.0 fL (36.4-46.3); Red Blood Count 3.72 M/uL (4.20-5.40); White Blood Count 7.15 K/ul (4.8-10.8)
[2025-10-20 06:45] LABS: Anion Gap 7.0 (3-11); Blood Urea Nitrogen 37.0 mg/dl (6-23); Calcium 8.7 mg/dl (8.6-10.3); Carbon Dioxide 29.0 mmol/L (21-32); Chloride 97.0 mmol/L (98-107); Creatinine Clr Calc Pharmacy 62.4 ml/min; Glucose 89.0 mg/dl (70-99(Fasting)); Potassium 4.2 mmol/L (3.5-5.1); Sodium 133.0 mmol/L (136-145)
[2025-10-20 07:23] VITALS: PULSE 74; RESP 16; O2SAT 96
[2025-10-20 08:11] VITALS: BP 155/66
--- NOTE | 2025-10-20 09:37 | Discharge Summary ---
Discharge Summary Date of Service October 20, 2025 Principal Dx & Hospital Course #1 = Principal Diagnosis (1) Acute hypoxic respiratory failure: (2) Elevated hemidiaphragm: (3) Pulmonary fibrosis: (4) Restrictive lung disease: (5) Hyponatremia: (6) Acute bronchitis: Plan Acute on chronic hypoxic respiratory failure - multifactorial but acute provoking event seems to be acute bronchitis with possible component of acute on chronic diastolic heart failure.More hypoxic than baseline, usually does not use continuous oxygen at home. (uses at night and as needed). Severe restrictive lung disease, followed in pulmonary clinic. related to elevated right hemidiaphragm and obesity. Limited amount of pulmonary fibrosis possibly related to history of radiation therapy for right-sided breast cancer. - caused by acute bronchitis, possible component of acute on chronic diastolic heart failure - Pulmonary consult on 10/18/2025. - Continue azithromycin To complete 5 days, and prednisone 40 mg for 5 additional days with bronchodilators. she reports that she does not use as needed albuterol because she does not tolerate it very well she will continue her a formoterol and budesonide nebs - breathing is much improved and is at her neurobaseline Acute kidney injury - prerenal, was caused by diuretics and/or fluid restriction. Lasix and ARB were held she was treated with 500 mL IV NS on 10/19. today creatinine has returned to her baseline of 0.6. okay to start ARB tomorrow and resume as needed Lasix Hyponatremia, acute on chronic Sodium improved from 125 to-133 - significant improvement after normal saline yesterday indicating there was some hypovolemic component - urine sodium was quite elevated the day of admission suggestive of SIADH, however, I cannot be sure that she had not had a loop diuretic within 48 hours of that check - continue normal salt diet, started twice daily protein replacement, recommend repeat BMP upon follow-up - requested from home health for next week HFpEF possible acute on chronic HFpEF contributing to hypoxia at admission, was diuresed and was dry with AARON on 10/19 - Echo showed normal LVEF. - continue ARB and as needed Lasix Hypertension lisinopril was stopped and changed to losartan over concerned that the lisinopril was contributing to her chronic coughing - Continue atenolol, increased to 75 mg this admission. Aerococcus UTI completed treatment with 5 days of Macrobid. Home with [facility] home health PT and OT Notes For Next Care Provider treated for acute bronchitis/COPD exacerbation with azithromycin prednisone and bronchodilators changed lisinopril to losartan because of cough. atenolol increased because of uncontrolled hypertension and home oxygen increased to 2 L continuously significantly hyponatremic on admission sodium 133-day of discharge, please check BMP upon follow-up Discharge Exam Last 24h vitals reviewed GEN: no acute distress, awake and alert sitting up in the chair HEENT: pupils equal, sclerae anicteric, moist MM RESP: normal WOB, clear to auscultation bilaterally throughout no rhonchi rale s or wheezing CV: reg no mrg ABD: soft/nt/nd +BT : no solares SKIN: warm and dry, no generalized rashes no lower extremity edema, lower extremities warm and well-perfused NEURO: AOx person, place, and situation. Face symmetric, speech normal, moves 4 ext spontaneously and equally Discharge Plan Discharge Items Patient Disposition: Home - Home Health Services Reason For Visit: ACUTE HYPOXIC RESPIRATORY FAILURE Discharge Diagnosis: acute hypoxic respiratory failure Condition on Discharge: Good Activity: Resume your previous activity Non-emergency contact: Primary Care Provider Call non-emergency contact if: you have any medication questions and your symptoms worsen Follow-up/Referrals: Mirian Melgoza CRNP [Primary Care Provider] - 10/24/25 9:30 am (Hospital follow up appointment on October 24 at 9:30 am.) Esequiel Laws MD, FCCP [Physician] - 11/17/25 11:00 am (Hospital follow up appointment on November 17 at 11 am.) Diet: Regular Addtl Attending Provider Instructions: You were treated for difficulty breathing and low oxygen levels Your oxygen levels are chronically low and this is related to not breathing deeply, some lung scarring (pulmonary fibrosis), and COPD On top of that you had some bronchitis that caused a flare-up of coughing/wheezing/low oxygen -continue azithromycin (antibiotic for bronchitis) three more doses -continue prednisone (steroid) for five days -continue your usual nebulizers -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 It's ok to start the losartan (the bottle might say to wait because I wrote the Rx yesterday, but its ok to start as soon as tomorrow morning based on today's labs) We increased your oxygen prescription - you should use 2 liters continuously both day and night. Its possibly you might be go back to as needed and nocturnal oxygen once you get over this flareup Because of your lung problems, you have a chronically low blood sodium level. Eat a normal salt diet - you don't have to restrict table salt. Take a protein supplement twice a day - this will help keep your blood sodium higher. This could be a protein shake, boost or ensure, or a protein bar Home health PT and OT, blood draw for BMP ideally next week, follow up with primary care within 1-2 weeks It was a pleasure taking care of you in the hospital, Jeanne Perez MD Pending Studies at Discharge: No Stand-Alone Forms: My [facility], Smoking Cessation Medications and DC Order Prescriptions: New azithromycin 250 mg Tablet 250 mg PO QAM Qty: 3 0RF atenolol 25 mg Tablet 75 mg PO DAILY Qty: 90 0RF losartan 25 mg Tablet 25 mg PO QAM Qty: 30 0RF Rx Instructions: start after ok'd by Dr. Melgoza based on labs prednisone 20 mg Tablet 40 mg PO DAILY Qty: 10 0RF Continued fluticasone propionate 50 mcg/actuation spray,suspension 2 spray intranasal DAILY Qty: 16 6RF potassium chloride 20 mEq tablet extended release 20 meq PO DAILY Qty: 90 3RF venlafaxine 75 mg capsule,extended release 24hr 75 mg PO DAILY Qty: 90 3RF arformoterol 15 mcg/2 mL solution for nebulization 15 mcg inhalation BID Qty: 120 9RF Rx Instructions: USE 1 VIAL IN NEBULIZER TWICE DAILY FOR COPD -J44.9, RESTRICTIVE LUNG DISEASE J96.4 New in 2023-No PA required simvastatin 20 mg tablet 20 mg PO HS Qty: 90 3RF trazodone 50 mg tablet 75 mg PO HS Qty: 90 3RF methenamine hippurate 1 gram tablet 1 g PO BID Qty: 180 1RF Centrum Silver 0.4-300-250 mg-mcg-mcg tablet 1 tab PO DAILY Patient Comments: 10/14- otc unable to verify acetaminophen 500 mg tablet 500 mg PO DIRECTED PRN (Reason: fever or pain) Patient Comments: 10/14- otc unable to verify budesonide 1 mg/2 mL suspension for nebulization 1 mg inhalation BID Qty: 120 9RF Azo Cranberry 250 mg tablet,chewable 250 mg PO TID Patient Comments: 10/14- otc unable to verify aspirin 81 mg Tablet,Chewable 81 mg PO QPM Patient Comments: 10/14- otc unable to verify calcium carbonate [Calcium 600] 600 mg calcium (1,500 mg) tablet 600 mg PO DAILY Patient Comments: 10/14- otc unable to verify cyanocobalamin (vitamin B-12) 1,000 mcg tablet 1,000 mcg PO DAILY Qty: 90 0RF Patient Comments: 10/14- otc unable to verify Rx Instructions: purchase adax-dkq-mufkmgi furosemide [Lasix] 20 mg tablet 20 mg PO DAILY PRN (Reason: edema of legs) Qty: 20 0RF Patient Comments: 10/14- last filled 05/30 20 day supply #20 levothyroxine 25 mcg tablet 37.5 mcg PO HS Qty: 135 3RF ketoconazole 2 % cream 0 applic topical BID Patient Comments: 10/14- filled 09/02 15 day supply Discontinued atenolol 50 mg tablet 50 mg PO DAILY Qty: 90 3RF lisinopril 10 mg tablet 10 mg PO DAILY Qty: 90 3RF nitrofurantoin monohyd/m-cryst [Macrobid] 100 mg capsule 100 mg PO Q12H 5 Days Qty: 10 0RF Rx Instructions: must administer with a meal/food No Action (DME) Oxygen Home Liters Per Minute See Rx Instructions .ROUTE .MEDSUPPLY Qty: 1 0RF Rx Instructions: 2 liters oxygen at night-time with sleep and with ambulation/activity Discharge Orders: Discharge Order (Routine); Ordered 10/20/25 Ordered By: Jeanne Wolf/Other Patient Handouts: Losartan Oral Tablet, Azithromycin Oral Tablet Admission Data Admit Date/Time: 10/14/25 12:42 Attending Provider: Jeanne Perez Admit Provider: Hubert Cardona Primary Care Provider: Mirian Melgoza Other Providers: Hubert Cardona; Mukund Shea; [facility],Home Healthcare Other Interventions: Discharge Summary Assessment (RN) Last Done: 10/20/25 10:35 Hospital Stay Data Consultations 10/14/25 11:33 ED Decision to Admit Stat 10/17/25 08:04 Consult Pulmonology Routine Diagnostic Imagining Performed 10/14/25 12:37 US venous doppler LE BI Stat 10/16/25 15:05 CT chest diagnostic wo con Routine Pending Results Patient Have Any Pending Studies at Discharge: No Discharge Instructions Given to Patient (Per Discharging Provider) You were treated for difficulty breathing and low oxygen levels Your oxygen levels are chronically low and this is related to not breathing deeply, some lung scarring (pulmonary fibrosis), and COPD On top of that you had some bronchitis that caused a flare-up of coughing/wheezing/low oxygen -continue azithromycin (antibiotic for bronchitis) three more doses -continue prednisone (steroid) for five days -continue your usual nebulizers -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 It's ok to start the losartan (the bottle might say to wait because I wrote the Rx yesterday, but its ok to start as soon as tomorrow morning based on today's labs) We increased your oxygen prescription - you should use 2 liters continuously both day and night. Its possibly you might be go back to as needed and nocturnal oxygen once you get over this flareup Because of your lung problems, you have a chronically low blood sodium level. Eat a normal salt diet - you don't have to restrict table salt. Take a protein supplement twice a day - this will help keep your blood sodium higher. This could be a protein shake, boost or ensure, or a protein bar Home health PT and OT, blood draw for BMP ideally next week, follow up with primary care within 1-2 weeks It was a pleasure taking care of you in the hospital, Jeanne Perez MD Total Time Total Time Spent Total Time Spent (In Minutes): I personally spent: 35 minutes today on clinical care activities including: reviewing chart notes and vital signs reviewing labs examining and counseling the patient writing orders writing prescriptions, discharge instructions documentation Coding Level of Care Code 61830 INP/OBS DISCH >30 MIN Diagnoses Acute hypoxic respiratory failure J96.01 Elevated hemidiaphragm J98.6 Pulmonary fibrosis J84.10 Restrictive lung disease J98.4 Hyponatremia E87.1 Acute bronchitis J20.9
--- NOTE | 2025-10-24 09:17 | Coding Query ---
CODING QUERY To promote full compliance with coding requirements relating to patient care, provider participation is requested in all cases of career transition specialist uncertainty. Please assist us with the question(s) below: Coding Question(s): COPD was documented as treated on the discharge summary under provider instructions, please confirm weather COPD was treated during admission Physician's Response(s): COPD treated and POA Patient diagnosed with COPD but not treated __x___ Pt does not have COPD Other, Please specify: Thank you Sindi Calabrese Principal Diagnosis: "that condition established after study, to be chiefly responsible for occasioning the admission of the patient to the hospital for care." Co-Existing Principal Diagnosis: "when two or more diagnoses equally meet the criteria for principal diagnosis as determined by the circumstances of admission, diagnostic work up, and/or therapy provided, and the Alphabetic Index, Tabular List, or another coding guideline does not provide sequencing direction, any one of the diagnoses may be sequenced first." "When the physician has documented what appears to be a current diagnosis in the body of the record, but has not included the diagnosis in the final diagnostic statement, the physician should be asked whether the diagnosis should be added." (Source Coding Clinic 2 QTR90. p3-4) BHAVYA
== END 2025-10-20 11:00 | disposition home or self-care (01) | DRG 189 ==
LOC: ED 08:56 → SUATTDRO 12:42 → 2E 12:42

== ENCOUNTER 2025-10-31 14:37 | Observation (INO) ==
--- NOTE | 2025-10-31 15:14 | Emergency Department Note ---
Impression & Plan Acute exacerbation of CHF (congestive heart failure), Pulmonary fibrosis, Elevated brain natriuretic peptide (BNP) level, Acute on chronic hypoxic respiratory failure ED Provider Note NAME: BRANDEN SOTELO AGE: 84 SEX: F : 1940 ARRIVES VIA: Walk-In INFORMANT: Patient, ED PROVIDER(S): Van Saxena DO CHIEF COMPLAINT: dyspnea HPI: This is an 84-year-old female with the PMHx of HTN, HLD, SIADH, obesity, GERD, SAAD, CHF and pulmonary fibrosis / RLD presenting to [facility] for further evaluation of dyspnea. Patient is accompanied by her who provide additional history. She notes worsening dyspnea since returning home from hospital. She notes chest tightness and centralized pain. Her dyspnea is severe with any type of exertional activity. She notes a few steps leads to severe dyspnea. She notes congestion. Feels that she has mucus that she is unable to mobilize. She has had to increase her oxygen at home. They deny fever or chills. She is unsure of weight gain. She has not taken diuretics since discharge. They deny abdominal pain, nausea and vomiting. No urinary complaints. No recent changes in bowel movements. Patient denies recent changes in medications or OTC supplements. Patient offers no other complaints, today. ADDITIONAL HISTORY OBTAINED: Per HPI Chronic Medical/Social Conditions Affecting Care: Per HPI PAST MEDICAL HISTORY: See Below PAST SURGICAL HISTORY: See Below FAMILY HISTORY: See Below SOCIAL HISTORY: See Below HOME MEDICATIONS: See Below ALLERGIES: See Below VITALS: See Below PHYSICAL EXAMINATION: GENERAL: Sitting up in bed, alert, well appearing, well nourished, no distress, non-toxic EYE EXAM: normal conjunctiva. OROPHARYNX: no exudate, no erythema, lips, buccal mucosa, and tongue normal and mucous membranes are moist NECK: supple, no nuchal rigidity, no adenopathy, non-tender LUNGS: Inspiratory crackles / rales at the bases. Mild tachypnea. Normal chest wall mechanics HEART: no murmurs, regular rate, regular rhythm ABDOMEN: abdomen soft, non-tender, no masses, no rebound or guarding. BACK: Back is symmetrical on inspection and there is no deformity, no midline tenderness, no CVA tenderness. SKIN: no rashes and no bruising UPPER EXTREMITIES: upper extremities are grossly normal. LOWER EXTREMITIES: 3+ pitting edema bilaterally. No evidence of DVT. NEURO EXAM: Normal sensorium, GCS 15, normal speech, no gross weakness of arms, no gross weakness of legs. MEDICAL DECISION MAKING: Differential diagnoses includes but not limited to ACS, unstable angina, dysrhythmia, PNA, hypervolemia/pulmonary edema, CHF exacerbation, COPD exacerbation, PE, pneumothorax, pericardial effusion, cardiac tamponade, anxiety/psychogenic, viral URI In summary, this is an 84 year old female who presented with dyspnea. Differential as above. Nursing notes and pertinent past medical records reviewed. Vital signs reviewed and the patient is tachypneic and hypertensive but otherwise afebrile and HDS. She is on 3-4L LFNC that has improved her oxygenation. This is increased from baseline. History and presentation revealed recent admission for CHF. Reviewed recent admission for similar. Her presentation was thought to be multifactorial. Etiologies likely related to her pulmonary fibrosis as well as CHF. Reviewed TTE from prior admission showing HFpEF. Physical examination revealed as above. As a result of my initial evaluation, her presentation is most consistent with CHF. Plan for labs and CXR. Her oxygen requirement is increased from prior. She seems to be confused on furosemide use. I wonder if presentation could be prevented by daily diuresis. Diagnostics interpreted by me include EKG and cardiac monitoring as listed below: -Cardiac Monitoring: An order was placed for continuous cardiac monitoring. The monitor shows a rate of 60-80s with regular rhythm. -ECG: Normal sinus rhythm at a ventricular rate of [address] segment changes to suggest STEMI. There is 1 PVC present on this rhythm strip. Intervals are within normal limits. Patient completed laboratory studies and imaging. CXR independently interpreted by me shows cardiomegaly as well as interstitial edema. Results independently interpreted by me are no leukocytosis or anemia. There is no significant electrolyte derangements or significant kidney dysfunction from baseline. No changes in LFTs. Chronic hyponatremia in the setting of SIADH noted. BNP elevated. Troponin is normal with reassuring EKG. Symptoms are not consistent with ACS. The patient was managed with IV Magnesium replacement and duoneb. Presentation is more consistent with CHF exacerbation and IV diuresis started. Appears on relatively low dose furosemide. IVP 40 mg Furosemide given. Discussed with [facility] Hospitalist group and recommend viral swab and CRP. Ultimately, the decision was made to admit the patient for severe dyspnea with acute on chronic hypoxemic respiratory failure 2/2 CHF exacerbation and pulmonary fibrosis. I discussed the case with the hospitalist service via telephone/TigerText and they are agreeable to admit the patient to their services. Based on the above, including the patient's age, coexisting illnesses, labs, imaging, and exam findings the decision to treat as an inpatient. I discussed the patient with the hospitalist team who recommended admission to their services. They received the medications, treatments, interventions indicated above and their condition remained guarded. I discussed my findings with the patient and their family and they understand and agree with the treatment plan. All patient / family questions were answered to their satisfaction. Consults/Care Managements Discussions: Per MDM ER treatment provided: See above Procedures: None Critical Care: None The chart was completed utilizing [employer] Speech voice recognition software. Grammatical errors, random word insertions, pronoun errors, and incomplete sentences are an occasional consequence of this system due to software limitations, ambient noise, and hardware issues. Any formal questions or concerns about the content, text, or information contained within the body of this dictation should be directly addressed to the physician for clarification. Past Med/Surg History Problem List (Updated 11/01/25 @ 21:25 by Van Saxena DO) Acute on chronic hypoxic respiratory failure (Acute) Elevated brain natriuretic peptide (BNP) level (Acute) Pulmonary fibrosis (Acute) Acute exacerbation of CHF (congestive heart failure) (Acute) Dyspnea (HFpEF) heart failure with preserved ejection fraction Acute bronchitis GERD (gastroesophageal reflux disease) Acute hypoxic respiratory failure (Acute) Hypersomnia Short of breath on exertion Hiatal hernia Pulmonary fibrosis Abnormal chest CT Elevated hemidiaphragm Perineal irritation in female Recurrent UTI Morbid obesity with BMI of 40.0-44.9, adult Chronic hypoxic respiratory failure Anemia (Acute) SIADH (syndrome of inappropriate ADH production) History of ESBL E. coli infection Leg weakness, bilateral Hypothyroidism (Chronic) Hyponatremia (Chronic) Insomnia (Chronic) Hyperlipidemia (Chronic) Hypertension (Chronic) Restrictive lung disease (Chronic) Osteoporosis (Chronic) Hypoxia (Chronic) Dyspnea on exertion (Chronic) Depression with anxiety (Chronic) Constipation (Chronic) Medical History Chronic reflux esophagitis Anxiety disorder Osteoarthritis Cancer RT BREAST CANCER (RADIATION) Hearing deficit Lumbar compression fracture Hypernatremia Surgical History History of dilatation and curettage History of back surgery LUMBAR SURGERY (NO HARDWARE) History of total knee replacement RT History of esophagogastroduodenoscopy (EGD) History of colonoscopy (~2018) History of herniorrhaphy X2 History of cholecystectomy Hx of lumpectomy RT BREAST History of tooth extraction History of cataract surgery RT/LEFT History of appendectomy Family History Brother Family history of diabetes mellitus Sister Family hx of colon cancer Breast cancer Colorectal cancer Mother Myocardial infarction Denies family history of Ovarian cancer Prostate cancer Social History Smoking Status: Former smoker Tobacco Type: Cigarettes Age Started Using Tobacco: 17; Age Quit Using Tobacco: 48; packs per day: 0.5; Cigarettes Per Day: QUIT 1988; Second Hand Exposure: No; Do You Dip or Chew Tobacco: No; Hx Alcohol Use: No Hx Substance Use: No Preferred Language: Ivorian Communication Ability: Effective Visual Impairment: Limited Hearing Ability: Normal Plate Filler Required: No Beliefs That Will Affect Care: None marital status: Current Living Situation: Spouse current occupational status: retired How many Children do You have: 3 Feels Safe at Home: Yes Safety Concerns: Feels Safe At This Time Childhood Exposure to Second-Hand Smoke: Yes Diet: regular caffeine: No during the past year weight has: remained stable Dental Care, Regularly: No Physical Activity Frequency: Does not Exercise Seatbelt Use: always Sunscreen Use: No (Sometimes. ) Do you think of yourself as: straight/heterosexual Sexual Activity: has been sexually active, but not for at least 12 months Gender Identity: Female Assistive Devices: Cane and Walker Allergies Allergies Allergy/AdvReac Type Severity Reaction Status Date / Time Sulfa (Sulfonamide Allergy Severe Anaphylaxis Verified 10/24/25 09:44 Antibiotics) Penicillins Allergy Intermediate RASH Verified 10/24/25 09:44 fosfomycin AdvReac Mild Nausea Verified 10/24/25 09:44 Home Meds Home Medications Medication Instructions Recorded Confirmed aspirin 81 mg chewable tablet 81 mg PO QPM 09/28/18 10/31/25 eiijaxlb-wah-onatc acid 0.4 1 tab PO DAILY 07/29/19 12/22/25 mg-lycopene 300 mcg-lutein 250 mcg tablet (Centrum Silver) acetaminophen 500 mg tablet 500 mg PO DIRECTED PRN fever or 10/17/19 10/31/25 pain calcium carbonate (Calcium 600) 600 mg PO DAILY 04/25/23 10/31/25 cranberry fruit concentrate 250 mg 250 mg PO TID 10/21/24 10/31/25 chewable tablet (Azo Cranberry) ketoconazole 2 % topical cream 0 applic topical BID 10/14/25 10/31/25 atenolol 25 mg tablet 0 mg PO DAILY 10/24/25 10/31/25 Previous Rx's Medication Instructions Recorded Oxygen Home #1 ea 05/29/25 cyanocobalamin (vitamin B-12) 1,000 mcg PO DAILY #90 tabs 05/29/25 1,000 mcg tablet furosemide 20 mg tablet (Lasix) 20 mg PO DAILY PRN edema of legs 05/29/25 #20 tabs levothyroxine 25 mcg tablet 37.5 mcg (1.5 x 25 mcg) PO HS #135 05/29/25 tabs potassium chloride 20 mEq 20 meq PO DAILY #90 tabs 06/24/25 tablet,extended release venlafaxine 75 mg capsule,extended 75 mg PO DAILY #90 caps 06/24/25 release 24 hr budesonide 1 mg/2 mL suspension 1 mg (2 mL) inhalation BID #120 mL 07/14/25 for nebulization arformoterol 15 mcg/2 mL solution 15 mcg (2 mL) inhalation BID #120 07/26/25 for nebulization mL simvastatin 20 mg tablet 20 mg PO HS #90 tabs 08/09/25 trazodone 50 mg tablet 75 mg (1.5 x 50 mg) PO HS #90 tabs 08/23/25 methenamine hippurate 1 gram tablet 1 g PO BID #180 tabs 10/12/25 losartan 25 mg tablet 25 mg PO QAM #30 tabs 10/19/25 prednisone 20 mg tablet 40 mg (2 x 20 mg) PO DAILY #10 tabs 10/19/25 fluticasone propionate 50 2 spray intranasal DAILY #16 grams 10/21/25 mcg/actuation nasal spray,suspension Results & Data (ED) Vital Signs Vital Signs - 24 hr 10/31/25 14:39 10/31/25 15:17 Temperature 37 C Temperature Source Temporal Artery Scan Pulse Rate 80 75 Respiratory Rate 34 H Respiratory Effort / Characteristics Spontaneous Respiratory Depth Normal Respiratory Pattern Regular Blood Pressure 202/100 H Blood Pressure Mean 134 Blood Pressure Position Sitting Pulse Oximetry 95 Oxygen Delivery Method Room Air Sepsis Recent Fever Within 48 Hours No Sepsis New/Unexplained Change in Mental Status No Sepsis Action Taken by Nursing No Action Required Laboratory Data 11/01/25 12:47 11/01/25 12:47 Lab Results 10/31/25 10/31/25 10/31/25 Range/Units 15:01 15:07 15:17 WBC 6.68 (4.8-10.8) K/ul RBC 3.80 L (4.20-5.40) M/uL Hgb 12.3 (12.0-16.0) g/dL Hct 37.3 (37.0-47.0) % MCV 98.2 (80.0-100.0) fL MCH 32.4 (25.0-34.0) pg MCHC 33.0 (32.0-36.0) g/dL RDW Std Deviation 48.3 H (36.4-46.3) fL RDW Coeff of Jannie 13.4 (11.5-14.5) % Plt Count 255 (130-400) K/uL MPV 9.4 (9.4-12.4) fL Immature Gran % (Auto) 0.1 % Neut % (Auto) 63.9 % Lymph % (Auto) 22.3 % Moore % (Auto) 10.3 % Eos % (Auto) 2.4 % Baso % (Auto) 1.0 % Neut # (Auto) 4.26 (1.40-6.50) K/uL Lymph # (Auto) 1.49 (1.20-3.40) K/uL Moore # (Auto) 0.69 H (0.11-0.59) K/uL Eos # (Auto) 0.16 (0.00-0.50) K/uL Baso # (Auto) 0.07 (0.00-0.20) K/uL Immature Gran # (Auto) 0.01 (0.01-0.20) K/uL PT 10.1 (9.0-12.0) Seconds INR 1.0 (0.9-1.1) APTT 24 (21-31) Seconds PTT Ratio 0.9 VBG pH 7.39 (7.36-7.41) VBG pCO2 46 (38-50) mmHg VBG pO2 67 mmHg VBG HCO3 28 mmol/L VBG O2 Saturation 96.5 % VBG Base Excess 2.2 mEq/L Sodium 133 L (136-145) mmol/L Potassium 4.4 (3.5-5.1) mmol/L Chloride 99 (98-107) mmol/L Carbon Dioxide 29 (21-32) mmol/L Anion Gap 5 (3-11) BUN 16 (6-23) mg/dl Creatinine 0.55 L (0.6-1.2) mg/dl Est Cr Clr Drug Dosing Not Reportable eGFR 89.77 BUN/Creatinine Ratio 29.1 H (10-20) Glucose 92 (70-99(Fasting)) mg/dl Calcium 9.0 (8.6-10.3) mg/dl Magnesium 1.7 (1.7-2.4) mg/dl Total Bilirubin 0.5 (0.2-1.0) mg/dl AST 19 (13-39) U/L ALT 20 (7-52) U/L Alkaline Phosphatase 34 (34-104) U/L Troponin I High Sens 6.8 (0-14) pg/ml C-Reactive Protein < 0.50 (0-0.5) mg/dl B-Natriuretic Peptide 169 H (0-100) pg/ml Total Protein 6.8 (6.0-8.3) gm/dl Albumin 3.6 (3.4-5.0) gm/dl Globulin 3.2 (2.5-4.0) gm/dl Albumin/Globulin Ratio 1.1 (0.9-2) Procalcitonin < 0.02 (0-0.5) ng/ml Urine Color Urine Appearance (Clear) Urine pH (4.5-7.5) Ur Specific Combes (1.000-1.030) Urine Protein (Negative) Urine Glucose (UA) (Negative) Urine Ketones (Negative) Urine Blood (Negative) Urine Nitrite (Negative) Urine Bilirubin (Negative) Urine Urobilinogen (Negative) Ur Leukocyte Esterase (Negative) Urine WBC (Auto) (0-5) /hpf Urine RBC (Auto) (0-2) /hpf U Hyaline Cast (Auto) (0-2) /lpf U Epithel Cells (Auto) (0-2) /hpf Urine Bacteria (Auto) (None Seen) Urine Comment 10/31/25 Range/Units 16:06 WBC (4.8-10.8) K/ul RBC (4.20-5.40) M/uL Hgb (12.0-16.0) g/dL Hct (37.0-47.0) % MCV (80.0-100.0) fL MCH (25.0-34.0) pg MCHC (32.0-36.0) g/dL RDW Std Deviation (36.4-46.3) fL RDW Coeff of Jannie (11.5-14.5) % Plt Count (130-400) K/uL MPV (9.4-12.4) fL Immature Gran % (Auto) % Neut % (Auto) % Lymph % (Auto) % Moore % (Auto) % Eos % (Auto) % Baso % (Auto) % Neut # (Auto) (1.40-6.50) K/uL Lymph # (Auto) (1.20-3.40) K/uL Moore # (Auto) (0.11-0.59) K/uL Eos # (Auto) (0.00-0.50) K/uL Baso # (Auto) (0.00-0.20) K/uL Immature Gran # (Auto) (0.01-0.20) K/uL PT (9.0-12.0) Seconds INR (0.9-1.1) APTT (21-31) Seconds PTT Ratio VBG pH (7.36-7.41) VBG pCO2 (38-50) mmHg VBG pO2 mmHg VBG HCO3 mmol/L VBG O2 Saturation % VBG Base Excess mEq/L Sodium (136-145) mmol/L Potassium (3.5-5.1) mmol/L Chloride (98-107) mmol/L Carbon Dioxide (21-32) mmol/L Anion Gap (3-11) BUN (6-23) mg/dl Creatinine (0.6-1.2) mg/dl Est Cr Clr Drug Dosing eGFR BUN/Creatinine Ratio (10-20) Glucose (70-99(Fasting)) mg/dl Calcium (8.6-10.3) mg/dl Magnesium (1.7-2.4) mg/dl Total Bilirubin (0.2-1.0) mg/dl AST (13-39) U/L ALT (7-52) U/L Alkaline Phosphatase (34-104) U/L Troponin I High Sens (0-14) pg/ml C-Reactive Protein (0-0.5) mg/dl B-Natriuretic Peptide (0-100) pg/ml Total Protein (6.0-8.3) gm/dl Albumin (3.4-5.0) gm/dl Globulin (2.5-4.0) gm/dl Albumin/Globulin Ratio (0.9-2) Procalcitonin (0-0.5) ng/ml Urine Color Yellow Urine Appearance Turbid A (Clear) Urine pH 8.0 H (4.5-7.5) Ur Specific Combes 1.025 (1.000-1.030) Urine Protein Trace H (Negative) Urine Glucose (UA) Negative (Negative) Urine Ketones Negative (Negative) Urine Blood Negative (Negative) Urine Nitrite Negative (Negative) Urine Bilirubin Negative (Negative) Urine Urobilinogen Negative (Negative) Ur Leukocyte Esterase Trace H (Negative) Urine WBC (Auto) 11-20 H (0-5) /hpf Urine RBC (Auto) 0-2 (0-2) /hpf U Hyaline Cast (Auto) 0-2 (0-2) /lpf U Epithel Cells (Auto) 0-2 (0-2) /hpf Urine Bacteria (Auto) None Seen (None Seen) Urine Comment Administered Medications Acetaminophen (Acetaminophen 325 Mg Tab) 650 mg PO Q4H PRN PRN Reason: Pain or Fever Stop: 11/30/25 17:45 Last Admin: 11/01/25 20:48 Dose: 650 mg Documented By: Admin: 11/01/25 12:45 Dose: 650 mg Documented By: Admin: 11/01/25 09:03 Dose: 650 mg Documented By: Admin: 11/01/25 03:28 Dose: 650 mg Documented By: Admin: 10/31/25 23:10 Dose: 650 mg Documented By: ARMANDO Aspirin (Aspirin 81 Mg Chew) 81 mg PO QPM MARLEY Stop: 11/30/25 20:59 Last Admin: 11/01/25 20:48 Dose: 81 mg Documented By: Admin: 10/31/25 21:57 Dose: 81 mg Documented By: ARMANDO Atenolol (Atenolol 25 Mg Tablet) 75 mg PO DAILY MARLEY Stop: 12/01/25 08:59 Last Admin: 11/01/25 08:07 Dose: 75 mg Documented By: YONI Budesonide (Budesonide 0.5 Mg/2 Ml Vial (Pulmicort)) 1 mg INH BIDR MARLEY Stop: 11/30/25 21:29 Last Admin: 11/01/25 19:38 Dose: 1 mg Documented By: yaakov Admin: 11/01/25 07:11 Dose: 1 mg Documented By: Admin: 10/31/25 22: Dose: 1 mg Documented By: ELZA Cyanocobalamin (Cyanocobalamin (B-12) 500 Mcg Tablet) 1,000 mcg PO DAILY MARLEY Stop: 12/01/25 08:59 Last Admin: 11/01/25 08:07 Dose: 1,000 mcg Documented By: YONI Fluticasone Propionate (Fluticasone Propionate Na Spr 16 Gm Btl) 2 sprays MANUELA DAILY MARLEY Stop: 12/01/25 08:59 Last Admin: 11/01/25 08:07 Dose: 2 sprays Documented By: YONI Formoterol Fumarate (Formoterol 20 Mcg/2 Ml Vial) 20 mcg INH BID MARLEY Stop: 11/30/25 20:59 Last Admin: 11/01/25 19:38 Dose: 20 mcg Documented By: yaakov Admin: 11/01/25 07:11 Dose: 20 mcg Documented By: Admin: 10/31/25 20:19 Dose: 20 mcg Documented By: CROW Levalbuterol HCl (Levalbuterol Hcl 0.63 Mg/3 Ml Neb) 0.63 mg NEB Q8R MARLEY; Protocol Stop: 12/01/25 15:19 Last Admin: 11/01/25 15:29 Dose: 0.63 mg Documented By: STELLA Levothyroxine Sodium (Levothyroxine Sodium 25 Mcg Tablet) 37.5 mcg PO HS MARLEY Stop: 11/30/25 20:59 Last Admin: 11/01/25 20:40 Dose: 37.5 mcg Documented By: Admin: 10/31/25 21:56 Dose: 37.5 mcg Documented By: ARMANDO Simvastatin (Simvastatin 20 Mg Tab) 20 mg PO HS MARLEY Stop: 11/30/25 20:59 Last Admin: 11/01/25 20:40 Dose: 20 mg Documented By: Admin: 10/31/25 21:57 Dose: 20 mg Documented By: ARMANDO Sodium Chloride (Sodium Chloride 1 Gm Tablet) 1 gm PO BID MARLEY Stop: 12/01/25 20:59 Last Admin: 11/01/25 20:41 Dose: 1 gm Documented By: ARMANDO Trazodone HCl (Trazodone Hcl 50 Mg Tab) 75 mg PO HS MARLEY Stop: 11/30/25 20:59 Last Admin: 10/31/25 21:57 Dose: 75 mg Documented By: ARMANDO Venlafaxine HCl (Venlafaxine Hcl Xr 75 Mg Capxr) 75 mg PO DAILY MARLEY Stop: 12/01/25 08:59 Last Admin: 11/01/25 08:07 Dose: 75 mg Documented By: YONI Discontinued Medications Albuterol (Albut/Ipratrop 3mg/0.5mg Neb 3 Ml Vial) 3 ml NEB NOW STA; Protocol Stop: 10/31/25 15:02 Last Admin: 10/31/25 15:34 Dose: 3 ml Documented By: michelle Furosemide (Furosemide 40 Mg/4 Ml Vial) 40 mg IV ONE ONE Stop: 10/31/25 16:17 Last Admin: 10/31/25 17:15 Dose: 40 mg Documented By: michelle Magnesium Sulfate/Dextrose (Magnesium Sulfate / D5w) 1 gm in 100 mls @ 100 mls/hr IV NOW STA Stop: 10/31/25 17:14 Last Infusion: 10/31/25 18:14 Dose: Infused Documented By: Admin: 10/31/25 17:14 Dose: 100 mls/hr Documented By: michelle Nitroglycerin (Nitroglycerin 2% Ointment 30gm Tube) 0.5 inch EXT NOW ONE Stop: 10/31/25 16:16 Last Admin: 10/31/25 17:15 Dose: 0.5 inch Documented By: michelle Imaging Data Radiologist's Impression: Chest X-Ray 10/31/25 15:01 SINGLE VIEW CHEST CLINICAL HISTORY: Dyspnea FINDINGS: 2 AP, portable, upright chest radiographs are compared to study dated 10/15/2025 and correlated with chest CT dated 10/16/2025. The heart is enlarged noting atherosclerotic calcification of the thoracic aorta. There is prominence of the pulmonary vasculature. 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 No pneumothorax is seen. The skeletal structures are osteopenic. The bony thorax is grossly intact. Degenerative change is noted in the shoulders and spine. IMPRESSION: 1. Cardiomegaly with prominence of the pulmonary vasculature. Correlate clinically for evidence of fluid overload/mild congestive change. 2. 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 Correlate clinically ACT 112: Negative or not required by law. Electronically signed by: Ifeanyi Carnes M.D. 10/31/2025 3:37 PM Discharge Plan Visit Data Chief Complaint: Shortness of Breath/Dyspnea Stated Complaint: SOB, TROUBLE BREATHING ED Provider: Van Saxena Discharge Problem: Acute exacerbation of CHF (congestive heart failure), Pulmonary fibrosis, Elevated brain natriuretic peptide (BNP) level, Acute on chronic hypoxic respiratory failure Patient Disposition: Admitted As Inpatient Condition: Serious Discharge Instructions Interventions: ED Discharge Assessment Last Done: 10/31/25 20:42
[2025-10-31 15:23] LABS: Hematocrit (blood only) 37.3 % (37.0-47.0); Hemoglobin 12.3 g/dL (12.0-16.0); Immature Granulocytes # (auto) 0.01 K/uL (0.01-0.20); Immature Granulocytes % (auto) 0.1 %; Mean Corpuscular Hemoglobin 32.4 pg (25.0-34.0); Mean Corpuscular Volume 98.2 fL (80.0-100.0); Platelet Count 255 K/uL (130-400); RDW Standard Deviation 48.3 fL (36.4-46.3); Red Blood Count 3.80 M/uL (4.20-5.40); White Blood Count 6.68 K/ul (4.8-10.8)
[2025-10-31] MEDS: ALBUT/IPRATROP 3MG/0.5MG NEB 3 ML VIAL NEB STA (15:34)
--- NOTE | 2025-10-31 15:38 | XRay Report ---
SINGLE VIEW CHEST CLINICAL HISTORY: Dyspnea FINDINGS: 2 AP, portable, upright chest radiographs are compared to study dated 10/15/2025 and correla juan david with chest CT dated 10/16/2025. The heart is enlarged noting atherosclerotic calcification of the thoracic aorta. There is prominence of the pulmonary vasculature. 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 No pneumothorax is seen. The skeletal structures are osteopenic. The bony thorax is grossly intact. Degenerative change is noted in the shoulders and spine. IMPRESSION: 1. Cardiomegaly with prominence of the pulmonary vasculature. Correlate clinically for evidence of fl uid overload/mild congestive change. 2. 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 Correlate clinically ACT 112: Negative or not required by law. Electronically signed by: Ifeanyi Carnes M.D. 10/31/2025 3:37 PM
[2025-10-31 15:39] LABS: Base Excess VBG 2.2 mEq/L; HCO3 VBG 28 mmol/L; Oxygen Saturation VBG 96.5 %; PCO2 VBG 46 mmHg (38-50); PO2 VBG 67 mmHg; pH VBG 7.39 (7.36-7.41)
[2025-10-31 15:44] LABS: Alanine Aminotransferase 20 U/L (7-52); Albumin Globulin Ratio 1.1 (0.9-2); Albumin Level 3.6 gm/dl (3.4-5.0); Alkaline Phosphatase 34 U/L (34-104); Anion Gap 5 (3-11); Bilirubin,Total 0.5 mg/dl (0.2-1.0); Blood Urea Nitrogen 16 mg/dl (6-23); Calcium 9.0 mg/dl (8.6-10.3); Carbon Dioxide 29 mmol/L (21-32); Chloride 99 mmol/L (98-107); Globulin 3.2 gm/dl (2.5-4.0); Glucose 92 mg/dl (70-99(Fasting)); Magnesium 1.7 mg/dl (1.7-2.4); Potassium 4.4 mmol/L (3.5-5.1); Sodium 133 mmol/L (136-145); Total Protein 6.8 gm/dl (6.0-8.3)
[2025-10-31 15:54] LABS: INR 1.0 (0.9-1.1); Partial Thromboplastin Time 24 Seconds (21-31); Prothrombin Time 10.1 Seconds (9.0-12.0)
[2025-10-31] MEDS: MAGNESIUM SULFATE / D5W 1 GM/100 ML BAG IV STA (17:14)
[2025-10-31] MEDS: NITROGLYCERIN 2% OINTMENT 30GM TUBE EXT ONE (17:15)
[2025-10-31] MEDS: FUROSEMIDE 40 MG/4 ML VIAL IV ONE (17:15)
[2025-10-31] MEDS ORDERED: FUROSEMIDE 20 MG TAB PO PRN (17:52)
--- NOTE | 2025-10-31 17:55 | Electrocardiogram Report ---
Test Reason : Blood Pressure : */* mmHG Vent. Rate : 76 BPM Atrial Rate : 76 BPM P-R Int : 174 ms QRS Dur : 90 ms QT Int : 370 ms P-R-T Axes : 75 67 70 degrees QTcB Int : 416 ms Sinus rhythm with occasional Premature ventricular complexes Abnormal ECG When compared with ECG of 14-Oct-2025 09:13, Premature ventricular complexes are now Present Confirmed by Valentin Mills ([id number]) on 10/31/2025 5:55:19 PM Referred By: Confirmed By: Valentin Mills
[2025-10-31] MEDS ORDERED: NON-FORMULARY MEDICATION (Oxygen Home Liters per Minute) SCH (18:00)
[2025-10-31 18:35] LABS: Appearance Urine Turbid (Clear); Bacteria Urine Automated None Seen (None Seen); Cast Urine Automated 0-2 /lpf (0-2); Epithelial Cell Urine Auto 0-2 /hpf (0-2); Glucose Urine UA Negative (Negative); RBC Urine Automated 0-2 /hpf (0-2)
[2025-10-31 19:08] LABS: Influenza A virus by PCR Negative (Neg); Influenza B virus by PCR Negative (Neg); SARS CoV2 RNA(COVID-19) Ceph NEGATIVE (Negative)
[2025-10-31] MEDS: FORMOTEROL 20 MCG/2 ML VIAL INH SCH (20:19)
[2025-10-31] MEDS: LEVOTHYROXINE SODIUM 25 MCG TABLET PO SCH (21:56)
[2025-10-31] MEDS: ASPIRIN 81 MG CHEW PO SCH (21:57)
[2025-10-31] MEDS: SIMVASTATIN 20 MG TAB PO SCH (21:57)
[2025-10-31] MEDS: BUDESONIDE 0.5 MG/2 ML VIAL (PULMICORT) INH SCH (22:25)
[2025-10-31] MEDS: ACETAMINOPHEN 325 MG TAB PO PRN (23:10)
--- NOTE | 2025-11-01 00:38 | History & Physical Report ---
Date of Service October 31, 2025 Assessment & Plan (1) Dyspnea: Plan: Admit to PCU Received IV lasix. 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 Both she & her are poor historians but it sounds like her dyspnea has gotten worse in the last 2-3 weeks. She typically does not use NC O2 during the daytime but at some point in the last week she began to use it during the daytime due to the dyspnea. #acute hypoxic respiratory failure - -differential - acute HFpEF vs pulmonary fibrosis exacerbation; can't exclude acute PE, can't exclude an infectious process but less likely-Concern that patient may not be compliant. -s/p IV lasix in ER -will reassess pt's response to the lasix tomorrow. will repeat chest x ray in AM. #suspected acute HFpEF - -does have significant edema of LEs with slightly elevated BNP -s/p lasix IV in ER; -needs better BP control which could be contributing to the acute HF #chronic hyponatremia 2nd to chronic SIADH - -fluid restrict to 1500ml/day tomorrow -may need salt tablets or urea -then BMP am tomorrow #severe restrictive lung disease - -as seen on PFTs 05/06/25 -sees Dr Laws in pulmonary clinic -his notes also state she has element of pulmonary fibrosis - possibly due to p rior radiation therapy for her right-sided breast cancer -does have mild kyphosis which can contribute to restriction -right-sided hemidiaphragm elevation will contribute to restriction -no significant obstruction on PFTs -resume home meds. # HTN - -B/Pappears at goal. 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 Patient reports she just feels off for the past day. She reports SOB followed by generalized malaise and fatigue. She is a poor historian and has difficulty explaining her symptoms further. She denies any fever, chills, sick contacts. She continues to complain of a poor appetite. Patient with a one day history of SOB followed by generalized malaise and fatigue Allergies Allergy/AdvReac Type Severity Reaction Status Date / Time Sulfa (Sulfonamide Allergy Severe Anaphylaxis Verified 10/24/25 09:44 Antibiotics) Penicillins Allergy Intermediate RASH Verified 10/24/25 09:44 fosfomycin AdvReac Mild Nausea Verified 10/24/25 09:44 Home Medications Medication Instructions Recorded Confirmed Type aspirin 81 mg chewable tablet 81 mg PO QPM 09/28/18 10/31/25 History tavxvsac-bja-bkhpl acid 0.4 1 tab PO DAILY 06/07/19 10/31/25 History mg-lycopene 300 mcg-lutein 250 mcg tablet (Centrum Silver) acetaminophen 500 mg tablet 500 mg PO DIRECTED PRN fever or 10/17/19 10/31/25 History pain calcium carbonate (Calcium 600) 600 mg PO DAILY 04/25/23 10/31/25 History cranberry fruit concentrate 250 mg 250 mg PO TID 10/21/24 10/31/25 History chewable tablet (Azo Cranberry) Oxygen Home #1 ea 05/29/25 10/24/25 Rx cyanocobalamin (vitamin B-12) 1,000 mcg PO DAILY #90 tabs 05/29/25 10/31/25 Rx 1,000 mcg tablet furosemide 20 mg tablet (Lasix) 20 mg PO DAILY PRN edema of legs 05/29/25 10/31/25 Rx #20 tabs levothyroxine 25 mcg tablet 37.5 mcg (1.5 x 25 mcg) PO HS #135 05/29/25 10/31/25 Rx tabs potassium chloride 20 mEq 20 meq PO DAILY #90 tabs 06/24/25 10/31/25 Rx tablet,extended release venlafaxine 75 mg capsule,extended 75 mg PO DAILY #90 caps 06/24/25 10/31/25 Rx release 24 hr budesonide 1 mg/2 mL suspension 1 mg (2 mL) inhalation BID #120 mL 07/14/25 10/31/25 Rx for nebulization arformoterol 15 mcg/2 mL solution 15 mcg (2 mL) inhalation BID #120 07/26/25 10/31/25 Rx for nebulization mL simvastatin 20 mg tablet 20 mg PO HS #90 tabs 08/09/25 10/31/25 Rx trazodone 50 mg tablet 75 mg (1.5 x 50 mg) PO HS #90 tabs 08/23/25 10/31/25 Rx methenamine hippurate 1 gram tablet 1 g PO BID #180 tabs 10/12/25 10/31/25 Rx ketoconazole 2 % topical cream 0 applic topical BID 10/14/25 10/31/25 History losartan 25 mg tablet 25 mg PO QAM #30 tabs 10/19/25 10/31/25 Rx prednisone 20 mg tablet 40 mg (2 x 20 mg) PO DAILY #10 tabs 10/19/25 10/31/25 Rx fluticasone propionate 50 2 spray intranasal DAILY #16 grams 10/21/25 10/31/25 Rx mcg/actuation nasal spray,suspension atenolol 25 mg tablet 0 mg PO DAILY 10/24/25 10/31/25 History Past Med/Surg History Problem List Dyspnea (HFpEF) heart failure with preserved ejection fraction Acute bronchitis GERD (gastroesophageal reflux disease) Acute hypoxic respiratory failure (Acute) Hypersomnia Short of breath on exertion Hiatal hernia Pulmonary fibrosis Abnormal chest CT Elevated hemidiaphragm Perineal irritation in female Recurrent UTI Morbid obesity with BMI of 40.0-44.9, adult Chronic hypoxic respiratory failure Anemia (Acute) SIADH (syndrome of inappropriate ADH production) History of ESBL E. coli infection Leg weakness, bilateral Hypothyroidism (Chronic) Hyponatremia (Chronic) Insomnia (Chronic) Hyperlipidemia (Chronic) Hypertension (Chronic) Restrictive lung disease (Chronic) Osteoporosis (Chronic) Hypoxia (Chronic) Dyspnea on exertion (Chronic) Depression with anxiety (Chronic) Constipation (Chronic) Medical History Chronic reflux esophagitis Anxiety disorder Osteoarthritis Cancer RT BREAST CANCER (RADIATION) Hearing deficit Lumbar compression fracture Hypernatremia Surgical History History of dilatation and curettage History of back surgery LUMBAR SURGERY (NO HARDWARE) History of total knee replacement RT History of esophagogastroduodenoscopy (EGD) History of colonoscopy (~2018) History of herniorrhaphy X2 History of cholecystectomy Hx of lumpectomy RT BREAST History of tooth extraction History of cataract surgery RT/LEFT History of appendectomy Family History Brother Family history of diabetes mellitus Sister Family hx of colon cancer Breast cancer Colorectal cancer Mother Myocardial infarction Denies family history of Ovarian cancer Prostate cancer Social History Smoking Status: Former smoker Tobacco Type: Cigarettes Age Started Using Tobacco: 17; Age Quit Using Tobacco: 48; packs per day: 0.5; Cigarettes Per Day: QUIT 1988; Second Hand Exposure: No; Do You Dip or Chew Tobacco: No; Hx Alcohol Use: No Hx Substance Use: No Preferred Language: Monegasque Communication Ability: Effective Visual Impairment: Limited Hearing Ability: Normal Folded Cloth Taper Required: No Beliefs That Will Affect Care: None marital status: Current Living Situation: Spouse current occupational status: retired How many Children do You have: 3 Feels Safe at Home: Yes Safety Concerns: Feels Safe At This Time Childhood Exposure to Second-Hand Smoke: Yes Diet: regular caffeine: No during the past year weight has: remained stable Dental Care, Regularly: No Physical Activity Frequency: Does not Exercise Seatbelt Use: always Sunscreen Use: No (Sometimes. ) Do you think of yourself as: straight/heterosexual Sexual Activity: has been sexually active, but not for at least 12 months Gender Identity: Female Assistive Devices: Cane and Walker Review of Systems Review of Systems: gen - no fevers or chills eyes - no ocular complaints HENT - no sore throat, no ear pain, no runny nose CV - no chest pain or chest tightness; LE edema+; no PND or orthopnea pulm - dyspnea at rest, dyspnea with exertion GI - no abd pain or nausea/emesis; no blood in stool - no hematuria, no dysuria (despite recent UTI) musculo - denies any myalgias neuro - no headache, no focal motor weakness skin - no rash endo - no diabetes Physical Exam Physical Exam: gen - In mild distress, eyes - PERRL HENT - MMM, no lesions, no thrush neck - suspected JVD; no lymph nodes heart - tachy, s1 s2, no murmur, regular rhythm lungs -decreased breath sounds with rales at bases. abd - soft NT ND BS+; ext - 2+ edema feet to knees b/l; pulses b/l feet 2+ psych - awake/alert skin - no rash neuro - strength 5/5 x 4 exts Results & Data Results & Data Vital Signs (Past 12 Hours) Vital Signs Temp Pulse Pulse Resp BP BP Pulse Ox 10/31/25 23:09 36.6 C 83 20 108/65 93 10/31/25 22:26 87 16 98 10/31/25 21:40 36.3 C L 82 26 H 158/96 H 95 10/31/25 21:30 10/31/25 20:49 85 20 110/79 98 10/31/25 20:20 81 16 98 10/31/25 19:35 10/31/25 18:56 86 10/31/25 18:53 83 18 152/91 H 98 10/31/25 15:17 75 10/31/25 14:39 37 C 80 34 H 202/100 H 95 O2 Del Method O2 Flow Rate 10/31/25 23:09 Nasal Cannula 3 10/31/25 22:26 Nasal Cannula 2 10/31/25 21:40 Nasal Cannula 3 10/31/25 21:30 Nasal Cannula 2 10/31/25 20:49 Room Air 10/31/25 20:20 Nasal Cannula 2 10/31/25 19:35 Room Air 10/31/25 18:56 10/31/25 18:53 Nasal Cannula 2 10/31/25 15:17 10/31/25 14:39 Room Air PG Care Time/CCT Total # of Minutes Spent Total Time Spent with Patient: Total time spent is greater than 50% in coordination of care (as documented) at patient's floor/unit and/or counseling patient: Coding Level of Care Code 32720 INT INP/OBS CARE 3/75MIN Diagnoses Dyspnea R06.00
[2025-11-01] MEDS: VENLAFAXINE HCL XR 75 MG CAPXR PO SCH (08:07)
[2025-11-01] MEDS: CYANOCOBALAMIN (B-12) 500 MCG TABLET PO SCH (08:07)
[2025-11-01] MEDS: ATENOLOL 25 MG TABLET PO SCH (08:07)
[2025-11-01] MEDS: FLUTICASONE PROPIONATE NA SPR 16 GM BTL NAE SCH (08:07)
[2025-11-01] MEDS ORDERED: LOSARTAN POTASSIUM 25 MG TAB PO SCH (09:00)
[2025-11-01 13:01] LABS: Hematocrit (blood only) 33.7 % (37.0-47.0); Hemoglobin 11.3 g/dL (12.0-16.0); Mean Corpuscular Hemoglobin 32.8 pg (25.0-34.0); Mean Corpuscular Volume 98.0 fL (80.0-100.0); Platelet Count 234 K/uL (130-400); RDW Standard Deviation 48.7 fL (36.4-46.3); Red Blood Count 3.44 M/uL (4.20-5.40); White Blood Count 6.33 K/ul (4.8-10.8)
[2025-11-01 13:24] LABS: Anion Gap 8.0 (3-11); Blood Urea Nitrogen 21.0 mg/dl (6-23); Calcium 8.3 mg/dl (8.6-10.3); Carbon Dioxide 27.0 mmol/L (21-32); Chloride 95.0 mmol/L (98-107); Creatinine Clr Calc Pharmacy 44.4 ml/min; Glucose 144.0 mg/dl (70-99(Fasting)); Potassium 3.9 mmol/L (3.5-5.1); Sodium 130.0 mmol/L (136-145)
--- NOTE | 2025-11-01 13:55 | XRay Report ---
TWO VIEW CHEST CLINICAL HISTORY: Hypoxia FINDINGS: PA and lateral chest radiographs are compared to study dated 10/31/2025 and correlated with chest CT dated 10/16/2025. The heart is enlarged noting atherosclerotic calcification of the thoracic aorta. The pulmonary vasculature is not congested. Dependent airspace opacities are similar to previ ous and likely represent atelectasis and a fat-containing Bochdalek hernia on the left. No pleural ef fusion or pneumothorax is seen. The skeletal structures are osteopenic. The bony thorax is grossly in tact. Degenerative change is noted in the shoulders and spine. Cholecystectomy clips are noted in the right upper quadrant. IMPRESSION: 1. Cardiomegaly without radiographic evidence of congestive failure change. 2. Bilateral dependent airspace opacities are similar to previous and favor atelectasis. ACT 112: Negative or not required by law. Electronically signed by: Ifeanyi Carnes M.D. 11/01/2025 1:53 PM
[2025-11-01] MEDS: LEVALBUTEROL HCL 0.63 MG/3 ML NEB NEB SCH (15:29)
[2025-11-01] MEDS: SODIUM CHLORIDE 1 GM TABLET PO SCH (20:41)
[2025-11-01] MEDS: HEPARIN SOD 5,000 UNIT/0.5 ML VIAL SQ SCH (22:29)
--- NOTE | 2025-11-01 23:51 | Hospitalist Progress Note ---
Date of Service November 01, 2025 Assessment & Plan (1) Dyspnea: Plan: Admit to PCU Received IV lasix. 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 Both she & her are poor historians but it sounds like her dyspnea has gotten worse in the last 2-3 weeks. She typically does not use NC O2 during the daytime but at some point in the last week she began to use it during the daytime due to the dyspnea. #acute hypoxic respiratory failure - -differential - acute HFpEF vs pulmonary fibrosis exacerbation; Likely chronic issue with her restrictive lung disease with selvin mild component of heart failure. -She appears dry and given that during her last hospital stay she devloped AARON from lasix, will hold further lasix. -s/p IV lasix in ER -repeat x ray does not show much fluid either. Possible discharge tomorrow depending on how she feels. May need to initiate abx if no improvement, however, she appears to be improving. #suspected acute HFpEF - -does have significant edema of LEs with slightly elevated BNP -s/p lasix IV in ER; -needs better BP control which could be contributing to the acute HF #chronic hyponatremia 2nd to chronic SIADH - sodium 130 -fluid restrict to 1500ml/day -may need salt tablets or urea -then BMP am tomorrow #severe restrictive lung disease - -as seen on PFTs 05/06/25 -sees Dr Laws in pulmonary clinic -his notes also state she has element of pulmonary fibrosis - possibly due to prior radiation therapy for her right-sided breast cancer -does have mild kyphosis which can contribute to restriction -right-sided hemidiaphragm elevation will contribute to restriction -no significant obstruction on PFTs -resume home meds. # HTN - -B/Pappears at goal. #hypothyroidism - -TSH 05/2025 wnl -cont synthroid #hyperlipidemia - -cont statin #mental health, sleep, etc - -cont effexor -cont trazodone -melatonin prn #DVT proph - heparin 5000 TID Admission and Anticipated Discharge Date Admission Date: October 31, 2025 Subjective Patient reports feeling slighty better.Not quite back to baseline. Physical Exam Physical Exam: gen - comofrtable eyes - PERRL HENT - MMM, no lesions, no thrush neck - suspected JVD; no lymph nodes heart - tachy, s1 s2, no murmur, regular rhythm lungs -decreased breath sounds with rales at bases. abd - soft NT ND BS+; ext - 2+ edema feet to knees b/l; pulses b/l feet 2+ psych - awake/alert skin - no rash neuro - strength 5/5 x 4 exts Results & Data Results & Data Vital Signs (Past 12 Hours) Vital Signs Temp Pulse Pulse Pulse Resp BP Pulse Ox 11/01/25 23:23 36.6 C 81 17 118/55 L 95 11/01/25 22:43 85 16 96 11/01/25 20:45 11/01/25 19:38 80 18 95 11/01/25 19:05 36.6 C 76 18 127/72 95 11/01/25 16:34 36.7 C 77 16 158/78 H 96 11/01/25 15:32 86 16 98 11/01/25 14:49 78 O2 Del Method O2 Flow Rate 11/01/25 23:23 Nasal Cannula 2 11/01/25 22:43 Nasal Cannula 2 11/01/25 20:45 Nasal Cannula 2 11/01/25 19:38 2 11/01/25 19:05 Nasal Cannula 2 11/01/25 16:34 Nasal Cannula 2 11/01/25 15:32 Nasal Cannula 2 11/01/25 14:49 PG Care Time/CCT Total # of Minutes Spent Total Time Spent with Patient: Total time spent is greater than 50% in coordination of care (as documented) at patient's floor/unit and/or counseling patient: Coding Level of Care Code 36201 SUB INP/OBS CARE 3/50MIN Diagnoses Dyspnea R06.00
[2025-11-02 06:33] LABS: Hematocrit (blood only) 33.9 % (37.0-47.0); Hemoglobin 11.4 g/dL (12.0-16.0); Mean Corpuscular Hemoglobin 32.8 pg (25.0-34.0); Mean Corpuscular Volume 97.4 fL (80.0-100.0); Platelet Count 236 K/uL (130-400); RDW Standard Deviation 48.1 fL (36.4-46.3); Red Blood Count 3.48 M/uL (4.20-5.40); White Blood Count 6.22 K/ul (4.8-10.8)
[2025-11-02 07:07] VITALS: RESP 18
[2025-11-02 07:15] LABS: Anion Gap 6 (3-11); Blood Urea Nitrogen 21 mg/dl (6-23); Calcium 8.3 mg/dl (8.6-10.3); Carbon Dioxide 29 mmol/L (21-32); Chloride 97 mmol/L (98-107); Creatinine Clr Calc Pharmacy 56.5 ml/min; Glucose 95 mg/dl (70-99(Fasting)); Potassium 4.1 mmol/L (3.5-5.1); Sodium 132 mmol/L (136-145)
[2025-11-02 11:44] VITALS: BP 138/83; TEMP 98.4; O2SAT 97
[2025-11-02 12:35] VITALS: PULSE 76
--- NOTE | 2025-11-02 16:03 | Discharge Summary ---
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: (6) Chronic kidney disease, stage 3b: Plan In summary this is a 89-year-old female who presented due to recurrent episode of dyspnea found to have mild volume overload adequately treated with intravenous diuretic therapy most consistent with an acute exacerbation of chronic heart failure with preserved ejection fraction complicated by restrictive lung disease and pulmonary fibrosis Patient was recently admitted with a viral bronchitis which was adequately treated and was relatively asymptomatic at the time of discharge however Aleena presented with new dyspnea; TTE was obtained during this most recent hospitalization on 10/14 found to have ejection fraction of 60 to 65% without significant cardiac hemodynamic dysfunction however the patient does have restrictive lung disease consequential of their body habitus, significant kyphosis, in addition to pulmonary 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 The patient's diuresis is complicated, given their previous established diagnosis of SIADH for many years, the management of which they have been consistently nonadherent to primarily focused on fluid restriction. The patient's previous assessments by nephrology both in the inpatient and outpatient setting have been reviewed prior to discharge here. The patient has been prescribed an as needed loop diuretic in the outpatient setting with inconsistent use and the patient endorses uncertainty of when they are supposed to use this medication as it has been previously prescribed for "leg swelling" and the patient states they have trouble assessing this. Given the patient is relatively nonadherent with their recommended fluid restriction, in addition to a new established need for more consistent diuretic therapy, through shared decision making it was determined that the patient's best interest would be to establish on regular diuretic therapy with close reassessment of the renal function and electrolytes. For more consistent di uretic dosing, the patient will be transition from Lasix to bumetanide at discharge to avoid any variance that may occur with intestinal absorption with the former. At the time of discharge, the patient is feeling well, saturating well on their home measure of supplemental oxygen and able to perform her activities without precipitated dyspnea. Notes For Next Care Provider Medication Changes From Visit Stop Lasix Start bumetanide 1 mg p.o. every other day Admission HPI Per Admitting Provider 84yo female with severe restrictive lung disease, right sided hemidiaphragm elevation, night-time NC O2 use, 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 Patient reports she just feels off for the past day. She reports SOB followed by generalized malaise and fatigue. She is a poor historian and has difficulty explaining her symptoms further. She denies any fever, chills, sick contacts. She continues to complain of a poor appetite. Patient with a one day history of SOB followed by generalized malaise and fatigue Discharge Exam General: Elderly female in no acute distress Vital Signs: Reviewed; saturating well on 2 L by nasal cannula HEENT: Moist mucous membranes Pulmonary: Symmetrically reduced chest wall excursion secondary to body habitus; slightly diminished air movement in the posterior bibasilar segments without asymmetry or additional abnormal lung sounds Cardiovascular: Regular rate and rhythm without murmur, rub, or gallop; S1 and S2 normal; right radial pulse 2+; bilateral lower extremity lipedema without superimposed pitting edema no evidence of lymphedema Gastrointestinal: Soft, nontender Musculoskeletal: Reproducible sharp tenderness along the left costochondral border, not exacerbated with deep inhalation Neurologic: Cranial nerves II through XII grossly intact Discharge Plan Discharge Items Patient Disposition: Home - Self-Care Reason For Visit: SOB Discharge Diagnosis: Acute on chronic heart failure with preserved ejection fraction // Hypoxia // Atelectasis Condition on Discharge: Serious Activity: Per Instructions section Non-emergency contact: Primary Care Provider and 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 Call non-emergency contact if: you have any medication questions and your symptoms worsen Follow-up/Referrals: Mirian Melgoza CRNP [Primary Care Provider] - 11/07/25 10:30 am (Hospital follow up appointment on November 07 at 10:30 am.) Diet: Low Sodium (2gm) Fluids: 2000ml (8 cups) Ambulatory Orders: Magnesium (Routine) Timeframe: 20251104 Location: Determined by Patient Ordered By: Peter N Le Flore Renal Function Panel (Routine) Timeframe: 20251104 Location: Determined by Patient Ordered By: Parmjit Esparza Attending Provider Instructions: You were admitted to [facility] for shortness of breath found to be consequential of acute on chronic heart failure with preserved ejection fraction complicated by 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 With regard to your presenting complaint, it was found that you had slight volume overload, resulting in following accumulation in the lungs requiring intravenous diuretic therapy to assist with symptomatic improvement. This is rapidly resolved during her hospitalization. Your TTE obtained during your most recent hospitalization on 10/14 does not show any significant structural cardiac disease, and based on your current presentation with a normal EKG, there is no indication for repeating the study at this time. We recommend establishing a regular diuretic regimen transitioning to bumetanide 1 mg p.o. every other day with reassessment of your renal function on 11/04. After review of both your laboratory assessment during your most recent hospitalization in addition to laboratory measures during this current hospitalization, I suspect that your diminished sodium measures is consequential of your hypervolemic presentations in both circumstances. There has been discussion of the need for possible sodium tablets or volume restriction in order to resolve these issues however, I suspect that this over complicates your current situation as your serum sodium measures have been acceptable with diuresis alone during your current hospitalization. Your serum sodium will be reassessed on 11/04 along with your other lab work mentioned above. Thank you for choosing [facility] as your healthcare provider. Pending Studies at Discharge: No Stand-Alone Forms: [facility], Smoking Cessation Medications and DC Order Prescriptions: New bumetanide 1 mg tablet 1 mg PO Q OTHER DAY 30 Days Qty: 15 0RF Continued potassium chloride 20 mEq tablet extended release 20 meq PO DAILY Qty: 90 3RF venlafaxine 75 mg capsule,extended release 24hr 75 mg PO DAILY Qty: 90 3RF arformoterol 15 mcg/2 mL solution for nebulization 15 mcg inhalation BID Qty: 120 9RF Rx Instructions: USE 1 VIAL IN NEBULIZER TWICE DAILY FOR COPD -J44.9, RESTRICTIVE LUNG DISEASE J96.4 New in 2023-No PA required simvastatin 20 mg tablet 20 mg PO HS Qty: 90 3RF trazodone 50 mg tablet 75 mg PO HS Qty: 90 3RF methenamine hippurate 1 gram tablet 1 g PO BID Qty: 180 1RF fluticasone propionate 50 mcg/actuation spray,suspension 2 spray intranasal DAILY Qty: 16 6RF Centrum Silver 0.4-300-250 mg-mcg-mcg tablet 1 tab PO DAILY Patient Comments: 10/14- otc unable to verify acetaminophen 500 mg tablet 500 mg PO DIRECTED PRN (Reason: fever or pain) Patient Comments: 10/14- otc unable to verify budesonide 1 mg/2 mL suspension for nebulization 1 mg inhalation BID Qty: 120 9RF atenolol 25 mg tablet 0 mg PO DAILY Rx Instructions: RECENTLY FILLED 50MG DAILY FROM 75MG DAILY Azo Cranberry 250 mg tablet,chewable 250 mg PO TID Patient Comments: 10/14- otc unable to verify aspirin 81 mg Tablet,Chewable 81 mg PO QPM Patient Comments: 10/14- otc unable to verify calcium carbonate [Calcium 600] 600 mg calcium (1,500 mg) tablet 600 mg PO DAILY Patient Comments: 10/14- otc unable to verify cyanocobalamin (vitamin B-12) 1,000 mcg tablet 1,000 mcg PO DAILY Qty: 90 0RF Patient Comments: 10/14- otc unable to verify Rx Instructions: purchase [id number] levothyroxine 25 mcg tablet 37.5 mcg PO HS Qty: 135 3RF (DME) Oxygen Home Liters Per Minute See Rx Instructions .ROUTE .MEDSUPPLY Qty: 1 0RF Rx Instructions: 2 liters oxygen at night-time with sleep and with ambulation/activity ketoconazole 2 % cream 0 applic topical BID Patient Comments: 10/14- filled 09/02 15 day supply losartan 25 mg Tablet 25 mg PO QAM Qty: 30 0RF Rx Instructions: start after ok'd by Dr. Melgoza based on labs Discontinued furosemide [Lasix] 20 mg tablet 20 mg PO DAILY PRN (Reason: edema of legs) Qty: 20 0RF Patient Comments: 10/14- last filled 05/30 20 day supply #20 prednisone 20 mg Tablet 40 mg PO DAILY Qty: 10 0RF Discharge Orders: Discharge Order (Routine); Ordered 11/02/25 Ordered By: Parmjit Wolf/Other Patient Handouts: Low-Salt Choices, Low Salt Diet Dc, ED Heart Disease Education Admission Data Admit Date/Time: 10/31/25 17:51 Attending Provider: Parmjit Butts Admit Provider: Keith Cazares Primary Care Provider: Mirian Melgoza Other Providers: Keith Cazares; [facility] Other Interventions: Discharge Summary Assessment (RN) Last Done: 11/02/25 12:35 Hospital Stay Data Consultations 10/31/25 18:28 ED Decision to Admit Stat Pending Results Patient Have Any Pending Studies at Discharge: No Discharge Instructions Given to Patient (Per Discharging Provider) You were admitted to [facility] for shortness of breath found to be consequential of acute on chronic heart failure with preserved ejection fraction complicated by 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 With regard to your presenting complaint, it was found that you had slight volume overload, resulting in following accumulation in the lungs requiring intravenous diuretic therapy to assist with symptomatic improvement. This is rapidly resolved during her hospitalization. Your TTE obtained during your most recent hospitalization on 10/14 does not show any significant structural cardiac disease, and based on your current presentation with a normal EKG, there is no indication for repeating the study at this time. We recommend establishing a regular diuretic regimen transitioning to bumetanide 1 mg p.o. every other day with reassessment of your renal function on 11/04. After review of both your laboratory assessment during your most recent hospitalization in addition to laboratory measures during this current hospitalization, I suspect that your diminished sodium measures is consequential of your hypervolemic presentations in both circumstances. There has been discu ssion of the need for possible sodium tablets or volume restriction in order to resolve these issues however, I suspect that this over complicates your current situation as your serum sodium measures have been acceptable with diuresis alone during your current hospitalization. Your serum sodium will be reassessed on 11/04 along with your other lab work mentioned above. Thank you for choosing [facility] as your healthcare provider. 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
== END 2025-11-02 13:47 | disposition home health service (06) | DRG 291 ==
LOC: ED 14:37 → INTOOBSV 17:51 → SUATTDRO 17:51 → EDINP 17:51 → 2S 21:36